=== PATIENT | female | born 1980 ===

== ENCOUNTER 2017-03-20 20:03 | Inpatient (IN) | payer SELFPAY ==
[2017-03-20 20:59] LABS: BASO # 0.1 K/uL (0.0-0.2); BASO % 0.9 % (0.0-2.0); EOS # 0.5 K/uL (0.0-0.7); EOS % 4.9 % (0.0-4.0); LYMPH # 3.3 K/uL (1.0-4.3); LYMPH % 34.4 % (20.0-40.0); MEAN CELL VOLUME 63.3 fl (81.0-99.0); MEAN CORPUSCULAR HEMOGLOBIN 18.5 pg (27.0-31.0); MEAN CORPUSCULAR HGB CONC 29.2 g/dL (33.0-37.0); MEAN PLATELET VOLUME 9.3 fl (7.2-11.7); MONO # 0.7 K/uL (0.0-0.8); MONO % 7.1 % (0.0-10.0); NEUT # 5.1 K/uL (1.8-7.0); NEUT % 52.7 % (50.0-75.0); WHITE BLOOD COUNT 9.7 K/uL (4.8-10.8)
[2017-03-20 21:15] LABS: BLOOD UREA NITROGEN 13 mg/dl (7-17); CALCIUM 8.7 mg/dL (8.4-10.2); CARBON DIOXIDE 23 mmol/L (22-30); CHLORIDE 103 mmol/L (98-107); GFR AFRICAN-AMERICAN > 60; GLUCOSE,RANDOM 92 mg/dL (65-105); SODIUM 139 mmol/l (132-148)
[2017-03-20 21:21] LABS: PARTIAL THROMBOPLASTIN TIME 29.3 Seconds (25.6-37.1)
[2017-03-20] MEDS ORDERED: Potassium CL 10 MEQ/50 ML 50 ML IVPB STA (21:22)
[2017-03-20] MEDS ORDERED: Potassium Chloride 20 mEq ER Tab PO ONE ×2 (21:23→21:47)
--- NOTE | 2017-03-20 21:23 | ED PDOC ---
Syncope/Near Syncope/Dizziness Time Seen by Provider: 03/20/17 20:19 Chief Complaint (Nursing): Dizziness/Lightheaded Chief Complaint (Provider): Dizziness/Lightheaded History Per: Patient History/Exam Limitations: no limitations Onset/Duration Of Symptoms: Days (x1) Current Symptoms Are (Timing): Still Present Additional Complaint(s): Dana Em is a 36 year old female with previous medical history of anemia and fibroids, who presents to the emergency department with a complaint of dizziness associated with occasional shortness of breath, heavy menstrual periods since June and general weakness described as "body heaviness". Denied chest pain, hematuria or bruising easily. Patient stated she had recent bloodwork done with hemoglobin less than 8 and symptoms are consistent with anemia. PMD: Hank Miller MD Past Medical History Reviewed: Historical Data, Nursing Documentation, Vital Signs Vital Signs: Last Vital Signs Temp 98.0 F 03/20/17 20:13 Pulse 106 H 03/20/17 20:13 Resp 16 03/20/17 20:13 BP 180/110 H 03/20/17 20:13 Pulse Ox 99 03/20/17 20:13 - Medical History PMH: Anxiety, Depression, HTN, Migraine Denies: Chronic Kidney Disease - Surgical History Surgical History: (x2) - Family History Family History: States: Unknown Family Hx - Social History Current smoker - smoking cessation education provided: No Ex-Smoker (has not smoked in the last 12 months): No Alcohol: None Drugs: Denies - Home Medications Home Medications: Ambulatory Orders Medication Instructions Recorded Lisinopril [Zestril] 10 mg PO DAILY 03/20/17 Sertraline [Zoloft] 12.5 mg PO DAILY 03/20/17 - Allergies Allergies/Adverse Reactions: Allergies Allergy/AdvReac Type Severity Reaction Status Date / Time No Known Allergies Allergy Verified 03/20/17 20:13 Review of Systems ROS Statement: Except As Marked, All Systems Reviewed And Found Negative Cardiovascular: Negative for: Chest Pain Respiratory: Positive for: Shortness of Breath Genitourinary Female: Positive for: Vaginal Bleeding (heavy). Negative for: Hematuria Skin: Negative for: Bruising (easily) Neurological: Positive for: Weakness, Dizziness Physical Exam - Reviewed Nursing Documentation Reviewed: Yes Vital Signs Reviewed: Yes - Physical Exam Appears: Positive for: Well, Non-toxic, No Acute Distress Head Exam: Positive for: ATRAUMATIC, NORMAL INSPECTION, NORMOCEPHALIC Skin: Positive for: Pallor. Negative for: Normal Color, Rash Eye Exam: Positive for: Normal appearance, EOMI, PERRL. Negative for: Nystagmus ENT: Positive for: Normal ENT Inspection Neck: Positive for: Normal Cardiovascular/Chest: Negative for: Chest Non Tender Respiratory: Positive for: Normal Breath Sounds, Accessory Muscle Use. Negative for: Decreased Breath Sounds, Respiratory Distress Gastrointestinal/Abdominal: Positive for: Normal Exam, Bowel Sounds, Soft. Negative for: Tenderness Extremity: Positive for: Normal ROM. Negative for: Tenderness, Pedal Edema, Deformity Neurologic/Psych: Positive for: Alert, Oriented, Mood/Affect (tired) - Laboratory Results Result Diagrams: 03/20/17 20:45 03/20/17 20:45 - ECG O2 Sat by Pulse Oximetry: 99 (RA) Pulse Ox Interpretation: Normal Medical Decision Making Medical Decision Making: Initial Impression: Anemia Initial Plan: * Type and screen * Packed cells leukoreduced * BMP * Urine * Urine dipstick * CBC * PTT * PT * CXR 21:[address] patient in OBS MS For anemia and hypokalemia. Case discussed with Dr. De La Rosa of Scribe Attestation: Documented by Amy May, acting as a scribe for Eric Marquez MD. Provider Scribe Attestation: All medical record entries made by the Scribe were at my direction and personally dictated by me. I have reviewed the chart and agree that the record accurately reflects my personal performance of the history, physical exam, medical decision making, and the department course for this patient. I have also personally directed, reviewed, and agree with the discharge instructions and disposition. Disposition - Clinical Impression Clinical Impression: Anemia, Hypokalemia - Disposition Disposition Time: 21:25 Condition: STABLE
--- NOTE | 2017-03-20 22:03 | CP.PCM.HP ---
History of Present Illness - History of Present Illness History of Present Illness: CC: Dizziness, SOB on exertion 36F p/w symptoms c/w symptomatic anemia. She was seen and is being worked up by [facility] for menorrhagia and findings of multiple uterine fibroids. She was called and started on Provera today, but ended up coming into the ED because of symptoms. LMP: 03/17/2017 and she has changed pads 6x today. Otherwise, she has URI symptoms for which she is taking NyQuil at night. PMH: HTN, Menorrhagia PSH: C-sxn x2 Denies smoking, drinks socially ADRIAN: Lisinopril/HCTZ, Sertraline, Feosol, ASA Allergies: NKDA Present on Admission - Present on Admission Any Indicators Present on Admission: No Review of Systems - Review of Systems All systems: reviewed and no additional remarkable complaints except - Constitutional Constitutional: Fatigue - Respiratory Respiratory: Dyspnea on Exertion - Reproductive: Female Reproductive:Female: Heavy Menses - Menstruation Menstruation: Currently Menstual, Heavy Menses Past Patient History - Infectious Disease Hx of Infectious Diseases: None - Past Medical History & Family History Past Medical History?: Yes - Past Social History Alcohol: None Drugs: Denies - CARDIAC Hx Hypertension: Yes - PULMONARY Hx Respiratory Disorders: No - NEUROLOGICAL Hx Migraine: Yes - HEENT Hx HEENT Problems: No - RENAL Hx Chronic Kidney Disease: No - ENDOCRINE/METABOLIC Hx Endocrine Disorders: No - HEMATOLOGICAL/ONCOLOGICAL Hx Blood Disorders: No - INTEGUMENTARY Hx Dermatological Problems: No - MUSCULOSKELETAL/RHEUMATOLOGICAL Hx Musculoskeletal Disorders: No Hx Falls: No - GASTROINTESTINAL Hx Gastrointestinal Disorders: No - GENITOURINARY/GYNECOLOGICAL Hx Genitourinary Disorders: No - PSYCHIATRIC Hx Anxiety: Yes Hx Depression: Yes - SURGICAL HISTORY Hx Surgeries: Yes Hx Section: Yes - ANESTHESIA Hx Anesthesia: Yes Hx Anesthesia Reactions: No Meds Allergies/Adverse Reactions: Allergies Allergy/AdvReac Type Severity Reaction Status Date / Time No Known Allergies Allergy Verified 03/20/17 20:13 Physical Exam - Constitutional Appears: Well, Non-toxic, No Acute Distress - Head Exam Head Exam: ATRAUMATIC, NORMAL INSPECTION - Eye Exam Eye Exam: EOMI, Normal appearance, PERRL - ENT Exam ENT Exam: Mucous Membranes Moist, Normal Exam - Respiratory Exam Respiratory Exam: Clear to Auscultation Bilateral, NORMAL BREATHING PATTERN. absent: Rales, Rhonchi, Wheezes - GI/Abdominal Exam GI & Abdominal Exam: Normal Bowel Sounds, Soft. absent: Tenderness - Extremities Exam Extremities exam: Positive for: full ROM, normal capillary refill, normal inspection, pedal pulses present - Neurological Exam Neurological exam: Alert, Oriented x3 - Psychiatric Exam Psychiatric exam: Normal Affect, Normal Mood - Skin Skin Exam: Dry, Intact, Warm Results - Vital Signs Recent Vital Signs: Last Vital Signs Temp 36.7 C 03/20/17 20:13 Pulse 106 H 03/20/17 20:13 Resp 16 03/20/17 20:13 BP 180/110 H 03/20/17 20:13 Pulse Ox 99 03/20/17 21:34 - Labs Result Diagrams: 03/20/17 20:45 03/20/17 20:45 Labs: Laboratory Results - last 24 hr 03/20/17 03/20/17 03/20/17 20:45 20:45 20:45 WBC 9.7 RBC 4.11 Hgb 7.6 L Hct 26.0 L MCV 63.3 L MCH 18.5 L MCHC 29.2 L RDW 22.0 H Plt Count 307 MPV 9.3 Neut % (Auto) 52.7 Lymph % (Auto) 34.4 [place] % (Auto) 7.1 Eos % (Auto) 4.9 H Baso % (Auto) 0.9 Neut # 5.1 Lymph # 3.3 Randall # 0.7 Eos # 0.5 Baso # 0.1 PT 11.5 INR 1.1 APTT 29.3 Sodium 139 Potassium 3.0 L Chloride 103 Carbon Dioxide 23 Anion Gap 16 BUN 13 Creatinine 0.7 Est GFR ( Amer) > 60 Est GFR (Non-Af Amer) > 60 Random Glucose 92 Calcium 8.7 Crossmatch BBK History Checked 03/20/17 21:00 WBC RBC Hgb Hct MCV MCH MCHC RDW Plt Count MPV Neut % (Auto) Lymph % (Auto) [place] % (Auto) Eos % (Auto) Baso % (Auto) Neut # Lymph # Randall # Eos # Baso # PT INR APTT Sodium Potassium Chloride Carbon Dioxide Anion Gap BUN Creatinine Est GFR ( Amer) Est GFR (Non-Af Amer) Random Glucose Calcium Crossmatch See Detail BBK History Checked No verified bt Assessment & Plan (1) Menorrhagia Assessment and Plan: Symptomatic but young, will fluid resuscitate, start Provera, c/w Feosol. - Rpt labs in AM - Start Provera - c/w Feosol - 2L NS bolus - T&S complete - Blood Consent complete Status: Acute (2) DVT prophylaxis Assessment and Plan: Menorrhagia and young, will place SCDs Status: Acute (3) Hypertension Assessment and Plan: Controlled, c/w medication Status: Chronic
[2017-03-20] MEDS: Sodium Chloride 0.9% 1,000 ML IV SCH (22:39)
[2017-03-20] MEDS ORDERED: Pneumococcal 23-Valent Vaccine IM ONE (23:41)
[2017-03-21] MEDS: Sodium Chloride 0.9% 1,000 ML IV SCH (00:20)
[2017-03-21 06:29] LABS: BASO # 0.1 K/uL (0.0-0.2); BASO % 0.9 % (0.0-2.0); EOS # 0.5 K/uL (0.0-0.7); EOS % 5.7 % (0.0-4.0); HEMATOCRIT 24.7 % (34.0-47.0); LYMPH # 2.5 K/uL (1.0-4.3); LYMPH % 30.2 % (20.0-40.0); MEAN CELL VOLUME 63.8 fl (81.0-99.0); MEAN CORPUSCULAR HGB CONC 29.7 g/dL (33.0-37.0); MEAN PLATELET VOLUME 9.3 fl (7.2-11.7); MONO # 0.6 K/uL (0.0-0.8); MONO % 7.2 % (0.0-10.0); NEUT # 4.6 K/uL (1.8-7.0); NRBC % 0.1 % (0.0-0.0); RED CELL DISTRIBUTION WIDTH 21.9 % (11.5-14.5); WHITE BLOOD COUNT 8.3 K/uL (4.8-10.8)
[2017-03-21 06:39] LABS: ALB/GLOB RATIO 1.1 (1.0-2.1); ALKALINE PHOSPHATASE 102 U/L (38-126); ALT/SGPT 51 U/L (9-52); AST/SGOT 35 U/L (14-36); BILIRUBIN,TOTAL 0.4 mg/dl (0.2-1.3); BLOOD UREA NITROGEN 5 mg/dl (7-17); CARBON DIOXIDE 27 mmol/L (22-30); CHLORIDE 105 mmol/L (98-107); GFR AFRICAN-AMERICAN > 60; GLUCOSE,RANDOM 97 mg/dL (65-105); POTASSIUM 3.5 MMOL/L (3.6-5.0); SODIUM 139 mmol/l (132-148); TOTAL PROTEIN 6.4 G/DL (6.3-8.2)
[2017-03-21] MEDS ORDERED: Influenza Vaccine 18yr & older 0.5 ML/45 MCG SYR IM ONE (09:00)
--- NOTE | 2017-03-21 10:02 | RAD ---
HISTORY: weakness COMPARISON: No prior. FINDINGS: LUNGS: No active pulmonary disease. PLEURA: No significant pleural effusion identified, no pneumothorax apparent. CARDIOVASCULAR: Normal. OSSEOUS STRUCTURES: No significant abnormalities. VISUALIZED UPPER ABDOMEN: Normal. OTHER FINDINGS: None. IMPRESSION: No active disease.
--- NOTE | 2017-03-21 16:23 | CP.PCM.PN ---
Subjective - Date & Time of Evaluation Date of Evaluation: 03/21/17 Time of Evaluation: 10:00 - Subjective Subjective: Pt seen and examined at bedside, seen resting. She shared of slight vaginal bleed like menses, headaches, dizziness upon ambulation. She has been able to drink fluids. Objective - Vital Signs/Intake and Output Vital Signs (last 24 hours): Temp Pulse Resp BP Pulse Ox 98.3 F 93 H 20 147/79 97 03/21/17 08:39 03/21/17 09:08 03/21/17 08:39 03/21/17 09:08 03/21/17 08:39 - Medications Medications: Current Medications Aspirin (Aspirin Chewable) 81 mg PO DAILY [facility] Last Admin: 03/21/17 09:07 Dose: 81 mg Ferrous Sulfate (Feosol) 325 mg PO TID [facility] Last Admin: 03/21/17 12:59 Dose: 325 mg Hydrochlorothiazide (Microzide) 12.5 mg PO DAILY [facility] Last Admin: 03/21/17 09:08 Dose: 12.5 mg Lisinopril (Zestril) 20 mg PO DAILY [facility] Last Admin: 03/21/17 09:08 Dose: 20 mg Medroxyprogesterone Acetate (Provera) 10 mg PO TIDAC [facility] Last Admin: 03/21/17 13:00 Dose: 10 mg Sertraline HCl (Zoloft) 100 mg PO HS [facility] Last Admin: 03/20/17 23:55 Dose: 100 mg - Labs Labs: 03/21/17 05:30 03/21/17 05:30 PT 11.5 Seconds (9.8-13.1) 03/20/17 20:45 INR 1.1 (0.9-1.2) 03/20/17 20:45 APTT 29.3 Seconds (25.6-37.1) 03/20/17 20:45 - Constitutional Appears: No Acute Distress - Head Exam Head Exam: NORMAL INSPECTION - Eye Exam Eye Exam: EOMI, Normal appearance - Respiratory Exam Respiratory Exam: Clear to Ausculation Bilateral, NORMAL BREATHING PATTERN - Cardiovascular Exam Cardiovascular Exam: REGULAR RHYTHM, +S1, +S2 - GI/Abdominal Exam GI & Abdominal Exam: Soft, Normal Bowel Sounds - Neurological Exam Neurological Exam: Alert, Awake, Oriented x3 - Psychiatric Exam Psychiatric exam: Normal Affect, Normal Mood Assessment and Plan - Assessment and Plan (Free Text) Assessment: Anemia secondary to menorrhagia. Plan: 36 yo F presented with menorrhagia 1) Anemia secondary to menorrhagia - symptomatic - transfuse 1 unit of RBC - f/u cbc after - Provera, Venofer - ordered von willebrand factor - Bx sched 04/03/2017 2) HTN - continue with meds 3) DVT prophylaxis -scd Harman Barajas, PGY1
[2017-03-21 17:16] VITALS: RESP 18
--- NOTE | 2017-03-21 21:35 | CARD ---
APPROVED REPORT EKG Measurement Heart [id number] <Conclusion> Sinus tachycardia Nonspecific ST abnormality Abnormal ECG
[2017-03-22 06:29] LABS: HEMATOCRIT 32.4 % (34.0-47.0); MEAN CELL VOLUME 69.5 fl (81.0-99.0); MEAN CORPUSCULAR HEMOGLOBIN 21.7 pg (27.0-31.0); MEAN CORPUSCULAR HGB CONC 31.3 g/dL (33.0-37.0); RED CELL DISTRIBUTION WIDTH 27.4 % (11.5-14.5); WHITE BLOOD COUNT 10.6 K/uL (4.8-10.8)
[2017-03-22 06:34] LABS: BLOOD UREA NITROGEN 8 mg/dl (7-17); CALCIUM 8.6 mg/dL (8.4-10.2); CARBON DIOXIDE 23 mmol/L (22-30); CHLORIDE 104 mmol/L (98-107); GFR AFRICAN-AMERICAN > 60; GLUCOSE,RANDOM 87 mg/dL (65-105); POTASSIUM 3.5 MMOL/L (3.6-5.0); SODIUM 142 mmol/l (132-148)
[2017-03-22 07:56] VITALS: BP 115/75; PULSE 71; TEMP 98.3; O2SAT 98
--- NOTE | 2017-03-22 08:34 | CP.PCM.DIS ---
Provider - Provider Date of Admission: 03/21/17 13:05 Attending physician: Tamia Ch MD Time Spent in preparation of Discharge (in minutes): 20 Hospital Course - Lab Results Lab Results: Most Recent Lab Values WBC 10.6 K/uL (4.8-10.8) 03/22/17 05:15 RBC 4.67 Mil/uL (3.80-5.20) 03/22/17 05:15 Hgb 10.1 g/dL (12.0-16.0) L D 03/22/17 05:15 Hct 32.4 % (34.0-47.0) L 03/22/17 05:15 MCV 69.5 fl (81.0-99.0) L D 03/22/17 05:15 MCH 21.7 pg (27.0-31.0) L 03/22/17 05:15 MCHC 31.3 g/dL (33.0-37.0) L 03/22/17 05:15 RDW 27.4 % (11.5-14.5) H 03/22/17 05:15 Plt Count 308 K/uL (130-400) 03/22/17 05:15 MPV 9.3 fl (7.2-11.7) 03/21/17 05:30 Neut % (Auto) 56.0 % (50.0-75.0) 03/21/17 05:30 Lymph % (Auto) 30.2 % (20.0-40.0) 03/21/17 05:30 [place] % (Auto) 7.2 % (0.0-10.0) 03/21/17 05:30 Eos % (Auto) 5.7 % (0.0-4.0) H 03/21/17 05:30 Baso % (Auto) 0.9 % (0.0-2.0) 03/21/17 05:30 Neut # 4.6 K/uL (1.8-7.0) 03/21/17 05:30 Lymph # 2.5 K/uL (1.0-4.3) 03/21/17 05:30 [place] # 0.6 K/uL (0.0-0.8) 03/21/17 05:30 Eos # 0.5 K/uL (0.0-0.7) 03/21/17 05:30 Baso # 0.1 K/uL (0.0-0.2) 03/21/17 05:30 PT 11.5 Seconds (9.8-13.1) 03/20/17 20:45 INR 1.1 (0.9-1.2) 03/20/17 20:45 APTT 29.3 Seconds (25.6-37.1) 03/20/17 20:45 Sodium 142 mmol/l (132-148) 03/22/17 05:15 Potassium 3.5 MMOL/L (3.6-5.0) L 03/22/17 05:15 Chloride 104 mmol/L (98-107) 03/22/17 05:15 Carbon Dioxide 23 mmol/L (22-30) 03/22/17 05:15 Anion Gap 19 (10-20) 03/22/17 05:15 BUN 8 mg/dl (7-17) 03/22/17 05:15 Creatinine 0.7 mg/dL (0.7-1.2) 03/22/17 05:15 Est GFR ( Amer) > 60 03/22/17 05:15 Est GFR (Non-Af Amer) > 60 03/22/17 05:15 Random Glucose 87 mg/dL (65-105) 03/22/17 05:15 Calcium 8.6 mg/dL (8.4-10.2) 03/22/17 05:15 Total Bilirubin 0.4 mg/dl (0.2-1.3) 03/21/17 05:30 AST 35 U/L (14-36) 03/21/17 05:30 ALT 51 U/L (9-52) 03/21/17 05:30 Alkaline Phosphatase 102 U/L (38-126) 03/21/17 05:30 Total Protein 6.4 G/DL (6.3-8.2) 03/21/17 05:30 Albumin 3.4 g/dL (3.5-5.0) L D 03/21/17 05:30 Globulin 3.0 gm/dL (2.2-3.9) 03/21/17 05:30 Albumin/Globulin Ratio 1.1 (1.0-2.1) 03/21/17 05:30 Blood Type A POSITIVE 03/20/17 21:00 Blood Type Confirm A POSITIVE 03/20/17 21:35 Antibody Screen Negative 03/20/17 21:00 Crossmatch See Detail 03/20/17 21:00 BBK History Checked No verified bt 03/20/17 21:00 - Hospital Course Hospital Course: 36 yo F presented with anemia secondary to menorrhagia Administered LR, 2 units of blood, venofer, and provera. HH: 10.1/32.4 Discharge home to follow up in OP in [address] Miller; Bx 04/03/2017 Discharge Exam - Head Exam Head Exam: NORMAL INSPECTION Discharge Plan - Discharge Medications Prescriptions: Ferrous Sulfate [Feosol] 325 mg PO TID #90 tab MedroxyPROGESTERone [Provera] 10 mg PO TIDAC #16 tab - Follow Up Plan Condition: STABLE Disposition: HOME/ ROUTINE Patient education suggested?: Yes Instructions: Medroxyprogesterone (By mouth), Dysfunctional Uterine Bleeding ( DC) Additional Instructions: take meds as directed appt scheduled for endometrial Bx with Dr. Frederick 04/03/17 Patient to follow up with PMD in 1-2 days ER precautions given Referrals: Rosalba Monreal MD [Staff Provider] -
[2017-03-26 15:38] LABS: VON WILLERBRAND FACTOR AG 96 % (50-217)
== END 2017-03-22 11:20 | disposition home or self-care (01) | DRG 395 ==
LOC: H.ER 20:03 → H.ERHOLD 21:24 → H.MEDSURG1 22:57 → OBSVTOIN 03-21 13:05
PROVIDERS: ADMIT Family Medicine Geriatric Medicine; ATTEND Family Medicine Geriatric Medicine
PROC: 30233N1 Transfusion of Nonautologous Red Blood Cells into Peripheral Vein, Percutaneous Approach (ICD-10-PCS; principal; 2017-03-21)
PROC: 3E0234Z Introduction of Serum, Toxoid and Vaccine into Muscle, Percutaneous Approach (ICD-10-PCS; 2017-03-21)
PROC: 3E0234Z Introduction of Serum, Toxoid and Vaccine into Muscle, Percutaneous Approach (ICD-10-PCS; 2017-03-22)
DX: D50.0 Iron deficiency anemia secondary to blood loss (chronic) (principal); E87.6 Hypokalemia; D25.9 Leiomyoma of uterus, unspecified; I10 Essential (primary) hypertension; N92.0 Excessive and frequent menstruation with regular cycle; G43.909 Migraine, unspecified, not intractable, without status migrainosus; F32.9 Major depressive disorder, single episode, unspecified; F41.9 Anxiety disorder, unspecified; Z23 Encounter for immunization

== ENCOUNTER 2017-04-05 23:38 | Emergency (ER) | payer SELFPAY ==
[2017-04-05 23:54] VITALS: O2SAT 99
[2017-04-06] MEDS ORDERED: HYDROmorphone 0.5 mg/0.5 ml ISec IVP STA ×2 (00:05→01:08)
[2017-04-06] MEDS ORDERED: Sodium Chloride 0.9% 1,000 ML IV STA (00:05)
[2017-04-06] MEDS ORDERED: HYDROmorphone 0.5 mg/0.5 ml ISec ONE (00:13)
--- NOTE | 2017-04-06 00:20 | ED PDOC ---
HPI: Abdomen Time Seen by Provider: 04/05/17 23:49 Chief Complaint (Nursing): Abdominal Pain Chief Complaint (Provider): Abdominal Pain History Per: Patient History/Exam Limitations: no limitations Onset/Duration Of Symptoms: Days (2 days) Current Symptoms Are (Timing): Still Present Severity: Severe Associated Symptoms: Urinary Symptoms (bleeding) Additional Complaint(s): Patient is a 36 y/o female with a past medical history of anemia and fibroids, who presents to the ED complaining of severe lower abdominal pain and bleeding since having an endometrial biopsy 2 days ago. Patient reports that she sees blood when urinating and otherwise only feels pain. She claims that she was told the pain would stop by now though it hasn't, and she reports taking Tylenol for the pain with no relief. Patient also notes feeling dizzy and lightheaded, but denies any further complaints. PCP: Provider [facility] Past Medical History Reviewed: Historical Data, Nursing Documentation, Vital Signs Vital Signs: Last Vital Signs Temp 98.4 F 04/05/17 23:47 Pulse 80 04/06/17 00:21 Resp 17 04/06/17 00:21 BP 149/100 H 04/06/17 00:21 Pulse Ox 99 04/06/17 03:30 - Medical History PMH: Anemia, Anxiety, Depression, HTN, Migraine Denies: Chronic Kidney Disease Other PMH: Fibroids - Surgical History Surgical History: (x2) - Family History Family History: States: No Known Family Hx, Unknown Family Hx - Social History Current smoker - smoking cessation education provided: No Ex-Smoker (has not smoked in the last 12 months): No Alcohol: None Drugs: Denies - Home Medications Home Medications: Ambulatory Orders Medication Instructions Recorded Lisinopril [Zestril] 10 mg PO DAILY 03/20/17 Sertraline [Zoloft] 12.5 mg PO DAILY 03/20/17 Ferrous Sulfate [Feosol] 325 mg PO TID #90 tab 03/22/17 MedroxyPROGESTERone [Provera] 10 mg PO TIDAC #16 tab 03/22/17 traMADol [Ultram] 50 mg PO BID #10 tab 04/06/17 - Allergies Allergies/Adverse Reactions: Allergies Allergy/AdvReac Type Severity Reaction Status Date / Time No Known Allergies Allergy Verified 03/20/17 20:13 Review of Systems ROS Statement: Except As Marked, All Systems Reviewed And Found Negative Gastrointestinal: Positive for: Abdominal Pain (lower abdomen) Genitourinary Female: Positive for: Hematuria Neurological: Positive for: Dizziness, Other (Lightheaded) Physical Exam - Reviewed Nursing Documentation Reviewed: Yes Vital Signs Reviewed: Yes - Physical Exam Appears: Positive for: Non-toxic, Uncomfortable Head Exam: Positive for: ATRAUMATIC, NORMOCEPHALIC Skin: Positive for: Normal Color, Warm, Dry Eye Exam: Positive for: Normal appearance, EOMI, PERRL Neck: Positive for: Normal, Painless ROM, Supple Cardiovascular/Chest: Positive for: Regular Rate, Rhythm. Negative for: Murmur Respiratory: Positive for: Normal Breath Sounds. Negative for: Respiratory Distress Gastrointestinal/Abdominal: Positive for: Tenderness (LLQ tenderness) Pelvic Exam: Positive for: External Exam Normal, Blood, Tender Adnexa (left adnexal tenderness) Back: Positive for: Normal Inspection. Negative for: L CVA Tenderness, R CVA Tenderness, Vertebral Tenderness Extremity: Positive for: Normal ROM. Negative for: Pedal Edema, Deformity Neurologic/Psych: Positive for: Alert, Oriented (x3). Negative for: Motor/ Sensory Deficits Comments: Strategic Account Executive: Marylu Mccarthy RN - Laboratory Results Result Diagrams: 04/06/17 00:34 04/06/17 00:34 - ECG O2 Sat by Pulse Oximetry: 99 (RA) Pulse Ox Interpretation: Normal Medical Decision Making Medical Decision Making: Time: 00:04 Initial Impression: post biopsy pain Initial Plan: --Transvaginal US --Type and screen --Labs --Urine --Urine Dipstick --HYDROmorphone 0.5mg IVP --Sodium chloride 0.9%, IV 500 mls/hr --Reevaluation Time: 02:58 Transvaginal US Results FINDINGS: Uterus/cervix: The uterus is enlarged and lobulated in contour secondary to multiple uterine fibroids. There is a 1.7 x 1.6 cm fibroid in the anterior body. There is a 2 x 1.7 cm fibroid in the posterior body. There is a 3.7 x 3.6 cm fibroid in the posterior fundus. There is a 3.7 x 2.8 cm fibroid in the anterior fundus. There is a 2.3 x 2.1 x 3.1 cm fibroid in the mid submucosal uterus. The endometrium is thickened and heterogeneous measuring 1.6 cm. Right ovary: The RIGHT ovary measures 5.2 x 3.2 x 2.1 cm. There is a 3.8 x 4.7 x 2.6 cm cyst in the RIGHT ovary. Normal blood flow. Left ovary: The LEFT ovary measures 3.4 x 1.7 x 1.8 cm and is unremarkable. Normal blood flow. Free fluid: No free fluid. Bladder: Empty bladder which cannot be evaluated with this probe. IMPRESSION: Multiple uterine fibroids. Heterogeneous and thickened endometrial cavity. Findings could be related to recent biopsy. Clinical correlation recommended. Large RIGHT ovarian cyst. No ovarian torsion. 330: Pt. is feeling much better, no longer having pain or dizziness. States she will call clinic tomorrow for expedited appointment. Will prescribe tramadol- discussed risks of narcotic pain management, patient understands addictive potential, states she will only use it if severe pain, opioid alternatives discussed. REturn precautions given. Will d/c home. LEAD APPLIER searched- no recent narcotic prescriptions (tramadol in 07/03) Scribe Attestation: Documented by Val Figueroa, acting as a scribe for Eric Marquez MD Provider Scribe Attestation: All medical record entries made by the Scribe were at my direction and personally dictated by me. I have reviewed the chart and agree that the record accurately reflects my personal performance of the history, physical exam, medical decision making, and the department course for this patient. I have also personally directed, reviewed, and agree with the discharge instructions and disposition. Disposition - Clinical Impression Clinical Impression: Abdominal pain, Vaginal bleeding - Patient ED Disposition Is Patient to be Admitted: No - Disposition Disposition: Routine/Home Disposition Time: 03:34 Condition: STABLE Prescriptions: traMADol [Ultram] 50 mg PO BID #10 tab Instructions: Abdominal Pain (ED), Dysfunctional Uterine Bleeding (ED) Forms: [facility] (Norwegian) Print Language: THAI
[2017-04-06 00:37] LABS: BASO # 0.1 K/uL (0.0-0.2); BASO % 0.6 % (0.0-2.0); EOS # 0.4 K/uL (0.0-0.7); EOS % 4.6 % (0.0-4.0); HEMATOCRIT 35.3 % (34.0-47.0); LYMPH # 3.2 K/uL (1.0-4.3); LYMPH % 33.6 % (20.0-40.0); MEAN CELL VOLUME 74.3 fl (81.0-99.0); MEAN CORPUSCULAR HEMOGLOBIN 23.1 pg (27.0-31.0); MEAN CORPUSCULAR HGB CONC 31.1 g/dL (33.0-37.0); MEAN PLATELET VOLUME 9.3 fl (7.2-11.7); MONO # 0.8 K/uL (0.0-0.8); MONO % 7.8 % (0.0-10.0); NEUT # 5.1 K/uL (1.8-7.0); NEUT % 53.4 % (50.0-75.0); RED CELL DISTRIBUTION WIDTH 31.1 % (11.5-14.5); WHITE BLOOD COUNT 9.6 K/uL (4.8-10.8)
[2017-04-06 01:24] LABS: BLOOD UREA NITROGEN 12 mg/dl (7-17); CALCIUM 9.4 mg/dL (8.4-10.2); CARBON DIOXIDE 24 mmol/L (22-30); CHLORIDE 106 mmol/L (98-107); GFR AFRICAN-AMERICAN > 60; GLUCOSE,RANDOM 96 mg/dL (65-105); POTASSIUM 3.4 MMOL/L (3.6-5.0); SODIUM 144 mmol/l (132-148)
--- NOTE | 2017-04-06 02:58 | US ---
EXAM: US Pelvis, Transvaginal CLINICAL HISTORY: 36 years old, female; Pain; Pelvic pain; Prior surgery; Surgery date: 3-7 days post-operative; Surgery type: Endometrial biopsy 3 days ago; Additional info: Llq pain, adnexal tenderness, recent endom biopsy TECHNIQUE: Real-time transvaginal pelvic ultrasound (complete) with image documentation. Transvaginal imaging was used for better evaluation of the endometrium and adnexa. COMPARISON: No relevant prior studies available. FINDINGS: Uterus/cervix: The uterus is enlarged and lobulated in contour secondary to multiple uterine fibroids. There is a 1.7 x 1.6 cm fibroid in the anterior body. There is a 2 x 1.7 cm fibroid in the posterior body. There is a 3.7 x 3.6 cm fibroid in the posterior fundus. There is a 3.7 x 2.8 cm fibroid in the anterior fundus. There is a 2.3 x 2.1 x 3.1 cm fibroid in the mid submucosal uterus. The endometrium is thickened and heterogeneous measuring 1.6 cm. Right ovary: The RIGHT ovary measures 5.2 x 3.2 x 2.1 cm. There is a 3.8 x 4.7 x 2.6 cm cyst in the RIGHT ovary. Normal blood flow. Left ovary: The LEFT ovary measures 3.4 x 1.7 x 1.8 cm and is unremarkable. Normal blood flow. Free fluid: No free fluid. Bladder: Empty bladder which cannot be evaluated with this probe. IMPRESSION: Multiple uterine fibroids. Heterogeneous and thickened endometrial cavity. Findings could be related to recent biopsy. Clinical correlation recommended. Large RIGHT ovarian cyst. No ovarian torsion.
[2017-04-06 03:44] VITALS: BP 142/95; PULSE 78; RESP 16; TEMP 98.2
== END 2017-04-06 03:50 | disposition home or self-care (01) ==
LOC: H.ER 23:38
DX: D25.9 Leiomyoma of uterus, unspecified (principal); N83.201 Unspecified ovarian cyst, right side; F32.9 Major depressive disorder, single episode, unspecified; F41.9 Anxiety disorder, unspecified; I10 Essential (primary) hypertension
CPT/HCPCS: 76830; 80048; 81025; 85025; 86850; 86900; 96361; 96374; 96376; 99283; J1170; J7040

== ENCOUNTER 2017-07-08 20:06 | Emergency (ER) | payer SELFPAY ==
[2017-07-08 20:15] VITALS: RESP 16; TEMP 98.9; O2SAT 100
[2017-07-08] MEDS ORDERED: Sodium Chloride 0.9% 1,000 ML IV STA (21:28)
--- NOTE | 2017-07-08 21:31 | ED PDOC ---
HPI: Female Pain Time Seen by Provider: 07/08/17 21:16 Chief Complaint (Nursing): Female Genitourinary Chief Complaint (Provider): Vaginal spotting History Per: Patient History/Exam Limitations: no limitations Onset/Duration Of Symptoms: Days (3) Current Symptoms Are (Timing): Still Present Additional Complaint(s): Vaginal spotting and cramping across lower. No vaginal dc. Occasional dysuria. No back pain. No chest pain, dyspnea, weakness. No headaches. Has known fibroids. Getting surgery for them in 4 weeks. Past Medical History Reviewed: Nursing Documentation, Vital Signs Vital Signs: Last Vital Signs Temp 98.9 F 07/08/17 20:11 Pulse 94 H 07/08/17 20:11 Resp 16 07/08/17 20:11 BP 166/103 H 07/08/17 20:11 Pulse Ox 100 07/08/17 20:11 - Medical History PMH: Anemia, Anxiety, Depression, HTN, Migraine Denies: Chronic Kidney Disease Other PMH: fibromyalgia - Surgical History Surgical History: (x2) - Family History Family History: States: Unknown Family Hx - Social History Current smoker - smoking cessation education provided: No Alcohol: None Drugs: Denies - Home Medications Home Medications: Ambulatory Orders Medication Instructions Recorded Lisinopril [Zestril] 10 mg PO DAILY 03/20/17 Sertraline [Zoloft] 12.5 mg PO DAILY 03/20/17 Ferrous Sulfate [Feosol] 325 mg PO TID #90 tab 03/22/17 MedroxyPROGESTERone [Provera] 10 mg PO TIDAC #16 tab 03/22/17 traMADol [Ultram] 50 mg PO BID #10 tab 04/06/17 - Allergies Allergies/Adverse Reactions: Allergies Allergy/AdvReac Type Severity Reaction Status Date / Time No Known Allergies Allergy Verified 03/20/17 20:13 Review of Systems ROS Statement: Except As Marked, All Systems Reviewed And Found Negative Genitourinary Female: Positive for: Vaginal Bleeding, Pelvic Pain Physical Exam - Reviewed Nursing Documentation Reviewed: Yes Vital Signs Reviewed: Yes - Physical Exam Appears: Positive for: Non-toxic, No Acute Distress Head Exam: Positive for: ATRAUMATIC, NORMAL INSPECTION, NORMOCEPHALIC Skin: Positive for: Normal Color, Warm, DRY Eye Exam: Positive for: EOMI, Normal appearance, PERRL ENT: Positive for: Normal ENT Inspection Neck: Positive for: Normal, Painless ROM Cardiovascular/Chest: Positive for: Regular Rate, Rhythm Respiratory: Positive for: CNT, Normal Breath Sounds Gastrointestinal/Abdominal: Positive for: Bowel Sounds, Soft, Tenderness ( tender mild across lower) Back: Positive for: Normal Inspection. Negative for: L CVA Tenderness, R CVA Tenderness Extremity: Positive for: Normal ROM. Negative for: Tenderness, Pedal Edema Neurologic/Psych: Positive for: Alert, Oriented - Laboratory Results Result Diagrams: 07/08/17 22:53 07/08/17 22:53 Interpretation Of Abn Labs: no acute - ECG O2 Sat by Pulse Oximetry: 100 Pulse Ox Interpretation: Normal - CT Scan/US US Other Rad Studies (CT/US): Radiology Report Reviewed Other Rad Interpretation: fibroids - Progress ED Course And Treament: 2316: Stable. Alert. AAOx3. Fu with pcp. Chronic findings. Disposition - Clinical Impression Clinical Impression: Fibroids - Patient ED Disposition Is Patient to be Admitted: No Counseled Patient/Family Regarding: Studies Performed, Diagnosis, Need For Followup - Disposition [facility] - [facility]17 Disposition: Routine/Home Disposition Time: 23:18 Condition: STABLE Additional Instructions: Return if not better in 3 days. Instructions: Uterine Fibroids (ED) Print Language: GAMBIAN
[2017-07-08 22:53] VITALS: BP 148/87; PULSE 80
[2017-07-08 22:56] LABS: BASO # 0.1 K/uL (0.0-0.2); BASO % 1.1 % (0.0-2.0); EOS # 0.3 K/uL (0.0-0.7); EOS % 2.9 % (0.0-4.0); HEMOGLOBIN 10.5 g/dL (12.0-16.0); LYMPH # 3.4 K/uL (1.0-4.3); LYMPH % 34.6 % (20.0-40.0); MEAN CELL VOLUME 69.5 fl (81.0-99.0); MEAN CORPUSCULAR HEMOGLOBIN 21.5 pg (27.0-31.0); MEAN CORPUSCULAR HGB CONC 30.9 g/dL (33.0-37.0); MONO # 0.5 K/uL (0.0-0.8); MONO % 5.6 % (0.0-10.0); NEUT # 5.4 K/uL (1.8-7.0); NEUT % 55.8 % (50.0-75.0); NRBC % 0.1 % (0.0-0.0); RBC 4.91 Mil/uL (3.80-5.20); RED CELL DISTRIBUTION WIDTH 20.9 % (11.5-14.5); WHITE BLOOD COUNT 9.7 K/uL (4.8-10.8)
[2017-07-08 23:05] LABS: BLOOD UREA NITROGEN 10 mg/dl (7-17); CALCIUM 9.3 mg/dL (8.4-10.2); GFR AFRICAN-AMERICAN > 60; GFR NON-AFRICAN AMERICAN > 60
--- NOTE | 2017-07-09 11:12 | US ---
HISTORY: vaginal bleeding. Menstrual status: LMP March 2017. Cycles are irregular. Currently on Depo-Provera. Relevant surgical history: March 2017 endometrial biopsy. COMPARISON: 04/06/2017 TECHNIQUE: Transvaginal only. Real -time technique with 2D, duplex and color Doppler FINDINGS: UTERUS: Measures 3.4 x 5.5 x 8.0 cm. Normal in size and appearance. Scratch stent 1. Posterior slightly exophytic fundal fibroid 2.9 x 3 cm. 2. Anterior exophytic fibroid 2.2 x 3.2 cm. 3. Posterior fibroid lower uterine segment to the left of the midline 3.9 x 4 cm. 4. Posterior isoechoic fibroid to the right of the midline 1.8 x 2.2 cm. 5. Anterior to the left of the midline fibroid 2.1 x 3 cm. ENDOMETRIUM: Measures 6.8 mm in diameter. Unremarkable. CERVIX: No cervical abnormality identified. RIGHT OVARY: Measures 2 x 2.7 x 3.8 cm. No solid mass. Normal flow. Dominant cysts 1.3 x 1.5 x 2.5 cm. Multiple subcentimeter follicles. LEFT OVARY: Measures 1.7 x 1.3 x 2.4 cm. No solid mass. Normal flow. Multiple subcentimeter follicles. FREE FLUID: No significant free fluid noted. OTHER FINDINGS: None. IMPRESSION: Unremarkable endometrium. Stable appearing uterus and multiple (5) fibroids. Bilateral follicles and a dominant cyst right adnexa.
== END 2017-07-09 00:15 | disposition home or self-care (01) ==
LOC: H.ER 20:06
DX: D25.9 Leiomyoma of uterus, unspecified (principal); F32.9 Major depressive disorder, single episode, unspecified; F41.9 Anxiety disorder, unspecified; I10 Essential (primary) hypertension; M79.7 Fibromyalgia
CPT/HCPCS: 76830; 80048; 81025; 85025; 96374; 99282; J1885; J7040

== ENCOUNTER 2017-08-06 06:01 | Inpatient (IN) | payer SELFPAY ==
[2017-07-29 09:12] VITALS: BMI 32.4
[2017-08-06] MEDS ORDERED: Propofol 10 mg/ml Inj (20 ML) ONE (07:44)
[2017-08-06] MEDS ORDERED: Midazolam 2 MG/2 ML VIAL ONE (07:44)
[2017-08-06] MEDS ORDERED: Rocuronium 10 mg/ml (5 ml) ONE ×2 (07:45→10:50)
[2017-08-06] MEDS ORDERED: Succinylcholine 200 mg/10 ml Inj IV ONE (07:45)
[2017-08-06] MEDS ORDERED: Neostigmine Methylsulfate 3mg/3ml Syringe IV ONE (07:45)
[2017-08-06] MEDS ORDERED: Lidocaine 4% (Laryng-O-Jet) Kit MM ONE (07:47)
[2017-08-06] MEDS ORDERED: Lactated Ringer's 1,000 ML IV ONE ×4 (08:32→10:45)
[2017-08-06] MEDS ORDERED: Esmolol 100 mg/10ml Inj IV ONE (09:38)
--- NOTE | 2017-08-06 11:40 | CP.PCM.HP ---
History of Present Illness - History of Present Illness History of Present Illness: 36 year old female with PMH of DM, HTN, Anemia, Menorrhagia, Fibroids presents for total abdominal hysterectomy. She has history of fibroids and menorrhagia, treated with depo provera in 2016. History of anemia requiring blood transfusion as well. No complaints this morning. 12 point review of systems negative PMH: DM, HTN, Anemia, Menorrhagia, Fibroids Medications: Zoloft, HCTZ, Metformin Allergies: NKDA Surgical hx : x 2 PMD: NHC Present on Admission - Present on Admission Any Indicators Present on Admission: No Past Patient History - Infectious Disease Hx of Infectious Diseases: None - Past Medical History & Family History Past Medical History?: Yes - Past Social History Smoking Status: Never Smoked - CARDIAC Hx Cardiac Disorders: Yes Hx Hypertension: Yes - PULMONARY Hx Respiratory Disorders: No - NEUROLOGICAL Hx Neurological Disorder: Yes Hx Migraine: Yes - HEENT Hx HEENT Problems: No - RENAL Hx Chronic Kidney Disease: No - ENDOCRINE/METABOLIC Hx Endocrine Disorders: No - HEMATOLOGICAL/ONCOLOGICAL Hx Blood Disorders: No Hx Anemia: Yes (transfused 2 units) - INTEGUMENTARY Hx Dermatological Problems: No - MUSCULOSKELETAL/RHEUMATOLOGICAL Hx Musculoskeletal Disorders: No Hx Falls: No - GASTROINTESTINAL Hx Gastrointestinal Disorders: No - GENITOURINARY/GYNECOLOGICAL Hx Genitourinary Disorders: Yes Other/Comment: fibroids - PSYCHIATRIC Hx Psychophysiologic Disorder: No Hx Anxiety: Yes Hx Depression: Yes Hx Substance Use: No - SURGICAL HISTORY Hx Surgeries: Yes Hx Section: Yes (x2) - ANESTHESIA Hx Anesthesia: Yes Hx Anesthesia Reactions: No Hx Malignant Hyperthermia: No Has any member of the family had a problem w/ anesthesia?: No Meds Allergies/Adverse Reactions: Allergies Allergy/AdvReac Type Severity Reaction Status Date / Time No Known Allergies Allergy Verified 03/20/17 20:13 Physical Exam - Constitutional Appears: Well, No Acute Distress - Head Exam Head Exam: ATRAUMATIC - ENT Exam ENT Exam: Mucous Membranes Moist - Respiratory Exam Respiratory Exam: Clear to Auscultation Bilateral, NORMAL BREATHING PATTERN - Cardiovascular Exam Cardiovascular Exam: REGULAR RHYTHM, +S1, +S2 - GI/Abdominal Exam GI & Abdominal Exam: Normal Bowel Sounds, Soft. absent: Distended, Guarding, Tenderness - Rectal Exam Rectal Exam: Deferred - Extremities Exam Extremities exam: Positive for: normal inspection. Negative for: calf tenderness, pedal edema - Neurological Exam Neurological exam: Alert, CN II-XII Intact, Normal Gait, Oriented x3, Reflexes Normal - Psychiatric Exam Psychiatric exam: Normal Affect, Normal Mood - Skin Skin Exam: Dry, Intact, Normal Color, Warm Results - Vital Signs Recent Vital Signs: Last Vital Signs Temp 98.8 F 08/06/17 06:33 Pulse 80 08/06/17 06:36 Resp 20 08/06/17 06:33 BP 134/91 H 08/06/17 06:33 Pulse Ox 97 08/06/17 06:33 - Labs Labs: Laboratory Results - last 24 hr 08/06/17 06:20 Blood Type A POSITIVE Antibody Screen Negative BBK History Checked Patient has bt Assessment & Plan - Assessment and Plan (Free Text) Assessment: A/P:36 year old female with DM, HTN, Menorrhagia, Fibroids presents for scheduled total abdominal hysterectomy. -NPO -Ancef preop -IT SOLUTIONS ARCHITECT for pain post op -Home Medications for DM, HTN to be resumed POD#1 Aditya PGY2 case d/w attending
[2017-08-06] MEDS ORDERED: Lactated Ringer's 1,000 ML IV SCH (13:30)
[2017-08-06] MEDS: Lactated Ringer's 1,000 ML IV SCH ×2 (14:46→22:33)
--- NOTE | 2017-08-06 19:42 | CP.PCM.PCO ---
Addendum Addendum: 08/06/17 19:34 Post op evaluation S:Patient seen and examined s/p total abdominal hysterectomy. Patient reports pain is well controlled. No appetite. Has had ice chips. No nausea or vomiting. Collins is in place. O: General: awake, lying comfortably in bed. lungs: normal breathing pattern abdomen: abdominal binder in place, dressing clean and dry. gu: collins in place ext: no edema or tenderness, SCDS in place A: 36 y/o F with hx of menorrhagia, anemia, DM, HTN, POD#0 s/p total abdominal hysterectomy P: -VOUCHER EXAMINER for pain control, can d/c in AM and start PO pain medications. -IVF : LR at 125cc/hr -NPO except ice chips, can start liquid diet in AM advance as tolerated. -Collins to gravity, to be discontinued in the AM. -Zofran PRN nausea -can resume home medications in AM Case discussed with Dr. Monreal, who agrees with the assessment/plan delineated above. Aditya PGY2
[2017-08-07] MEDS: Lactated Ringer's 1,000 ML IV SCH (06:41)
[2017-08-07 06:46] LABS: BASO % 0.2 % (0.0-2.0); EOS # 0.1 K/uL (0.0-0.7); EOS % 0.4 % (0.0-4.0); HEMOGLOBIN 10.9 g/dL (12.0-16.0); LYMPH # 1.8 K/uL (1.0-4.3); LYMPH % 12.9 % (20.0-40.0); MEAN CELL VOLUME 68.2 fl (81.0-99.0); MEAN CORPUSCULAR HEMOGLOBIN 21.1 pg (27.0-31.0); MEAN PLATELET VOLUME 9.3 fl (7.2-11.7); MONO # 1.1 K/uL (0.0-0.8); MONO % 7.8 % (0.0-10.0); NEUT % 78.7 % (50.0-75.0); RBC 5.17 Mil/uL (3.80-5.20); RED CELL DISTRIBUTION WIDTH 21.6 % (11.5-14.5)
--- NOTE | 2017-08-07 08:52 | CP.PCM.PN ---
Subjective - Date & Time of Evaluation Date of Evaluation: 08/07/17 Time of Evaluation: 07:45 - Subjective Subjective: Patient seen and examined bedside. Pain mostly controlled. Villa removed this morning. No nausea or vomiting. Requesting liquid diet. Encouraged incentive spirometer, out of bed to chair with assistance. Follow trial of void. D/C IVF Objective - Vital Signs/Intake and Output Vital Signs (last 24 hours): Temp Pulse Resp BP Pulse Ox 100 F H 89 18 126/84 98 08/07/17 04:51 08/07/17 04:51 08/07/17 04:51 08/07/17 04:51 08/07/17 04:51 Intake and Output: 08/07/17 08/07/17 06:59 18:59 Intake Total 1500 Output Total 1150 Balance 350 - Medications Medications: Current Medications Hydrochlorothiazide (Microzide) 12.5 mg PO DAILY [facility] Hydromorphone HCl (Dilaudid 0.2 Mg/Ml Fuel Technician) 0 mg IV PRN PRN; Protocol PRN Reason: Pain, severe (8-10) Stop: 08/07/17 16:30 Last Admin: 08/06/17 17:19 Dose: 6 mg Ibuprofen (Motrin Tab) 400 mg PO Q6H PRN PRN Reason: Pain, Mild (1-3) Metformin HCl (Glucophage) 500 mg PO BIDWM [facility] Ondansetron HCl (Zofran Inj) 4 mg IVP Q6 PRN PRN Reason: Nausea/Vomiting Oxycodone/Acetaminophen (Percocet 5/325 Mg Tab) 2 tab PO Q4 PRN PRN Reason: Pain, severe (8-10) Sertraline HCl (Zoloft) 100 mg PO DAILY [facility] - Labs Labs: 08/07/17 05:45 - Constitutional Appears: Well - Head Exam Head Exam: ATRAUMATIC, NORMAL INSPECTION, NORMOCEPHALIC - Eye Exam Eye Exam: EOMI, Normal appearance, PERRL - Respiratory Exam Respiratory Exam: Clear to Ausculation Bilateral, NORMAL BREATHING PATTERN - Cardiovascular Exam Cardiovascular Exam: REGULAR RHYTHM, +S1, +S2 - GI/Abdominal Exam GI & Abdominal Exam: Hypoactive Bowel Sounds Additional comments: incision clean and dry, intact. appropriately tender in lower abdomen - Exam External exam: NORMAL EXTERNAL EXAM (no discharge on pad) - Extremities Exam Extremities Exam: Normal Inspection. absent: Calf Tenderness - Neurological Exam Neurological Exam: Alert, Awake, CN II-XII Intact - Psychiatric Exam Psychiatric exam: Normal Affect, Normal Mood - Skin Skin Exam: Normal Color Assessment and Plan - Assessment and Plan (Free Text) Assessment: POD#1 36 year old female s/p total abdominal hysterectomy. -Doing well post operatively -start liquid diet -d/c IVF, PATIENT ASSESSMENT COORDINATOR to discontinued -PO pain control -resume hctz and zoloft. -resume metformin once tolerating PO intake. Will discuss with attending Aditya PGY2
[2017-08-07] MEDS ORDERED: Oxycodone/Acetaminophen 5/325 mg Tab PO PRN (09:00)
[2017-08-07] MEDS: Oxycodone/Acetaminophen 5/325 mg Tab PO PRN ×2 (14:59→21:04)
[2017-08-08] MEDS: Oxycodone/Acetaminophen 5/325 mg Tab PO PRN (06:21)
--- NOTE | 2017-08-08 07:40 | CP.PCM.PN ---
Subjective - Date & Time of Evaluation Date of Evaluation: 08/08/17 Time of Evaluation: 07:40 - Subjective Subjective: POD#2 s/p CODY Patient seen and examined bedside. Pain controlled with percocet. Tolerating regular diet. No nausea or vomiting. Voiding well. Has not passed flatus. Encouraged ambulation today, in hallway as well as incentive spirometry. Vitals reviewed. Objective - Vital Signs/Intake and Output Vital Signs (last 24 hours): Temp Pulse Resp BP Pulse Ox 98.7 F 94 H 18 131/83 97 08/08/17 06:00 08/08/17 06:00 08/08/17 06:00 08/08/17 06:00 08/08/17 06:00 - Medications Medications: Current Medications Hydrochlorothiazide (Microzide) 12.5 mg PO DAILY [facility] Last Admin: 08/07/17 09:03 Dose: 12.5 mg Ibuprofen (Motrin Tab) 800 mg PO Q8 PRN PRN Reason: Pain, Mild (1-3) Last Admin: 08/07/17 18:09 Dose: 800 mg Metformin HCl (Glucophage) 500 mg PO BIDWM [facility] Last Admin: 08/07/17 18:09 Dose: 500 mg Ondansetron HCl (Zofran Inj) 4 mg IVP Q6 PRN PRN Reason: Nausea/Vomiting Oxycodone/Acetaminophen (Percocet 5/325 Mg Tab) 2 tab PO Q4 PRN PRN Reason: Pain, severe (8-10) Last Admin: 08/07/17 21:04 Dose: 2 tab Oxycodone/Acetaminophen (Percocet 5/325 Mg Tab) 1 tab PO Q4 PRN PRN Reason: Pain, moderate (4-7) Stop: 08/10/17 09:01 Last Admin: 08/08/17 06:21 Dose: 1 tab Sertraline HCl (Zoloft) 100 mg PO DAILY [facility] Last Admin: 08/07/17 09:03 Dose: 100 mg - Labs Labs: 08/07/17 05:45 - Constitutional Appears: Non-toxic, No Acute Distress - Head Exam Head Exam: ATRAUMATIC, NORMAL INSPECTION, NORMOCEPHALIC - Respiratory Exam Respiratory Exam: Clear to Ausculation Bilateral, NORMAL BREATHING PATTERN - Cardiovascular Exam Cardiovascular Exam: REGULAR RHYTHM, +S1, +S2 - GI/Abdominal Exam GI & Abdominal Exam: Soft, Tenderness (appropriately tender around incision.). absent: Distended, Guarding Additional comments: incision clean and dry, shanta in place. compress over incision is clean. - Neurological Exam Neurological Exam: Alert, Awake, CN II-XII Intact - Psychiatric Exam Psychiatric exam: Normal Affect, Normal Mood - Skin Skin Exam: Dry, Intact, Normal Color, Warm Assessment and Plan - Assessment and Plan (Free Text) Assessment: POD#2 s.p CODY 36 year old female s/p CODY, doing well postoperatively Continue with regular diet. Encouraged ambulation and incentive spirometry Pain control with motrin/percocet Burgess PGY2 Will d/w attending
[2017-08-08] MEDS ORDERED: Oxycodone/Acetaminophen 5/325 mg Tab PO PRN (09:00)
--- NOTE | 2017-08-08 23:04 | OP ---
PROCEDURE DATE: 08/06/2017 PREOPERATIVE DIAGNOSES: Menorrhagia and uterine leiomyoma. POSTOPERATIVE DIAGNOSES: Menorrhagia and uterine leiomyoma. PROCEDURE: Total abdominal hysterectomy. SURGEON: Rosalba Monreal MD CONTINUOUS MINER: Cal Ibarra MD TYPE OF ANESTHESIA: General. ANESTHESIA ADMINISTERED BY: Nate Louise MD. ESTIMATED BLOOD LOSS: 200 mL. INTRAVENOUS FLUIDS: 2300 mL lactated Ringer's. URINE OUTPUT: 700 mL, clear at the end of procedure. SPECIMEN: Uterus to pathology. COMPLICATIONS: None. FINDINGS: Exam under anesthesia revealed an approximately 10-week sized uterus with multiple leiomyoma, normal adnexa. On intraoperative evaluation, the same was noted with a uterus with multiple leiomyoma noted and bilateral tubes and ovaries appear to be normal. INDICATIONS: This is a 36-year-old G3, P2 with a past medical history significant for diabetes, hypertension and migraines, who presented for a scheduled abdominal hysterectomy as the patient had a long history of menorrhagia and uterine leiomyoma. She tried medical management previously with Depo-Provera and oral medroxyprogesterone pills which gave minimal relief. Due to this, the patient desired definitive therapy because her symptoms were not improved with the medical management. The patient had 2 sections and history of one miscarriage. The risks, benefits and alternatives to the procedure were all reviewed with the patient with the design engineer marine equipment present. She understood all the risk of the total abdominal hysterectomy including, but not limited to the risk of infection, injury to the major blood vessels, to the bowel, bladder and the ureters and the injury to the bladder and ureter may result in renal function loss, fistula formation or may require future restorative surgery. Major hemorrhage would also require blood transfusion. There was also rare risk of that as a result of surgical complications, the patient understood all the risks and desired to proceed with the procedure. DESCRIPTION OF PROCEDURE: She was taken to the operating room with IV running and pneumatic compression stocking and sequential compression devices applied to lower extremities. General anesthesia was obtained without difficulty. The patient was examined under anesthesia with the findings noted above. The patient prepped and draped in the dorsal supine position. A Villa catheter was also inserted and the bladder was emptied. A Pfannenstiel skin incision was then made with the scalpel through the previous Pfannenstiel scar and this incision was carried down to the fascia with the Bovie. The fascia was then incised in the midline and this incision was extended laterally using the Bovie. The inferior aspect of the fascial incision was then grasped with Jefry clamps, elevated, and the underlying rectus muscles were dissected off with the Bovie, then bluntly. Attention was then turned to the superior aspect of the fascial incision, which in a similar fashion was elevated and dissected off with the Bovie, then bluntly. The rectus muscles were meticulously in the midline. The peritoneum was identified and entered with Metzenbaum scissors. This incision was then extended laterally, superiorly and inferiorly paying close attention to the bladder. Following this, moist laparotomy sponges were used to pack away the bowel and a self-retaining retractor was introduced into the incision. The patient was placed in slight Trendelenburg position. Praveena clamps were then placed bilaterally along the cornu of the uterus and traction was applied to facilitate exposure and dissection. The round ligament was identified, cut with the Bovie and suture ligated bilaterally and the anterior leaf of the broad ligament was then dissected to the midline of the vesicouterine peritoneum. The bladder was then dissected off of the uterus and the cervix with the Metzenbaum scissors. A window was created in avascular area of the posterior leaf. The ovarian ligament of Fallopian tube was then clamped, cut and doubly ligated and good hemostasis was noted. The uterine vessels were then skeletonized and doubly clamped and cut bilaterally. The pedicles were suture ligated and good hemostasis was noted. The cardinal ligament and uterosacral ligament were then sequentially clamped and cut and suture ligated. Curved Raquel clamps were placed at the angles of vagina and cervix was removed from the vaginal cuff using Alexa scissors. The uterus and cervix was then handed off of the field for pathology. The vaginal angles were then closed with Raquel stitch and tied to the uterosacral ligament to provide support to the vaginal cuff. The vaginal cuff was then closed with a continuous running suture followed by [id number] suture and good hemostasis was noted. The pelvis was then irrigated with normal saline. SurgiSeal was then placed over the vaginal cuff stitch. The patient was taken out of Trendelenburg position. All laparotomy sponges and the self-retaining retractor was removed. The peritoneum was then closed with 2-0 Vicryl in a running fashion. The muscle was re-approximated using 2-0 Vicryl for 3 horizontal mattress sutures. The fascia was re-approximated with 0-Vicryl suture bilaterally to the midline. The Bovie was used to obtain hemostasis on the subcutaneous fat layer and this was also closed with 4 interrupted sutures using 3-0 plain suture. The skin was closed with shanta and the incision was covered with a sterile dressing. The patient tolerated the procedure well. Ancef 2 g was given preoperatively. The patient was awaken from anesthesia and taken to the recovery room in stable condition. There was no injury to the bladder, bowel or ureters noted. Due to the nature of the case, an assistant professor was requested. My assistant professor Dr. Ibarra was present from the initial incision to the patient's transfer to the recovery room. Dr. Ibarra assisted with all aspects of the procedure including ligation of uterine vessels and removal of the uterus and suturing for the vaginal cuff. He also assisted with entry into the abdominal/pelvic cavity and closure of all layers of the abdominal wall. The procedure could not have been performed without his assistance. Rosalba Monreal MD [facility]
[2017-08-09] MEDS ORDERED: Bisacodyl 5mg EC Tab PO ONE (08:42)
--- NOTE | 2017-08-09 08:45 | CP.PCM.PN ---
Subjective - Date & Time of Evaluation Date of Evaluation: 08/09/17 Time of Evaluation: 07:40 - Subjective Subjective: Patient seen and examined bedside. Lying in bed comfortably. Abominal binder off, next to patient. Able to walk around last night, two more times. She has not passed flatus, is belching though. Objective - Vital Signs/Intake and Output Vital Signs (last 24 hours): Temp Pulse Resp BP Pulse Ox 99.1 F 88 18 134/86 97 08/08/17 22:00 08/08/17 22:00 08/08/17 22:00 08/08/17 22:00 08/08/17 22:00 - Medications Medications: Current Medications Hydrochlorothiazide (Microzide) 12.5 mg PO DAILY [facility] Last Admin: 08/09/17 08:37 Dose: 12.5 mg Ibuprofen (Motrin Tab) 800 mg PO Q8 PRN PRN Reason: Pain, Mild (1-3) Last Admin: 08/09/17 01:30 Dose: 800 mg Metformin HCl (Glucophage) 500 mg PO BIDWM [facility] Last Admin: 08/09/17 08:36 Dose: 500 mg Ondansetron HCl (Zofran Inj) 4 mg IVP Q6 PRN PRN Reason: Nausea/Vomiting Oxycodone/Acetaminophen (Percocet 5/325 Mg Tab) 2 tab PO Q4 PRN PRN Reason: Pain, severe (8-10) Last Admin: 08/07/17 21:04 Dose: 2 tab Oxycodone/Acetaminophen (Percocet 5/325 Mg Tab) 1 tab PO Q4 PRN PRN Reason: Pain, moderate (4-7) Stop: 08/10/17 09:01 Last Admin: 08/08/17 06:21 Dose: 1 tab Sertraline HCl (Zoloft) 100 mg PO DAILY [facility] Last Admin: 08/09/17 08:28 Dose: 100 mg - Labs Labs: 08/07/17 05:45 - Constitutional Appears: Well - Head Exam Head Exam: ATRAUMATIC, NORMAL INSPECTION, NORMOCEPHALIC - Eye Exam Eye Exam: Normal appearance - ENT Exam ENT Exam: Mucous Membranes Moist, Normal Exam - Respiratory Exam Respiratory Exam: NORMAL BREATHING PATTERN - Cardiovascular Exam Cardiovascular Exam: REGULAR RHYTHM - GI/Abdominal Exam GI & Abdominal Exam: Soft, Tenderness (mild incisional). absent: Distended, Guarding Additional comments: +bowel sounds. incision: clean and dry, shanta in place. - Extremities Exam Extremities Exam: Full ROM, Normal Inspection. absent: Pedal Edema - Neurological Exam Neurological Exam: Alert, Awake, CN II-XII Intact - Psychiatric Exam Psychiatric exam: Normal Affect, Normal Mood - Skin Skin Exam: Dry, Intact, Normal Color, Warm Assessment and Plan - Assessment and Plan (Free Text) Assessment: POD#3 s/p CODY Pain controlled. Tolerating diet. No Flatus. Encouraged ambulation. Will give suppository and senokot and reassess patient this afternoon. Case discussed with attending, who agrees with assessment and plan delineated above. Aditya PGY2
[2017-08-09] MEDS ORDERED: Docusate-Senna 50 mg-8.6 mg Tab PO ONE (08:48)
[2017-08-09] MEDS: Oxycodone/Acetaminophen 5/325 mg Tab PO PRN (11:35)
--- NOTE | 2017-08-09 15:03 | CP.PCM.DIS ---
Provider - Provider Date of Admission: 08/06/17 11:23 Attending physician: Rosalba Monreal MD Time Spent in preparation of Discharge (in minutes): 35 Diagnosis - Discharge Diagnosis (1) S/P total abdominal hysterectomy Status: Acute Hospital Course - Lab Results Lab Results: Most Recent Lab Values WBC 14.0 K/uL (4.8-10.8) H D 08/07/17 05:45 RBC 5.17 Mil/uL (3.80-5.20) 08/07/17 05:45 Hgb 10.9 g/dL (12.0-16.0) L 08/07/17 05:45 Hct 35.3 % (34.0-47.0) 08/07/17 05:45 MCV 68.2 fl (81.0-99.0) L 08/07/17 05:45 MCH 21.1 pg (27.0-31.0) L 08/07/17 05:45 MCHC 31.0 g/dL (33.0-37.0) L 08/07/17 05:45 RDW 21.6 % (11.5-14.5) H 08/07/17 05:45 Plt Count 300 K/uL (130-400) 08/07/17 05:45 MPV 9.3 fl (7.2-11.7) 08/07/17 05:45 Neut % (Auto) 78.7 % (50.0-75.0) H 08/07/17 05:45 Lymph % (Auto) 12.9 % (20.0-40.0) L 08/07/17 05:45 Parker % (Auto) 7.8 % (0.0-10.0) 08/07/17 05:45 Eos % (Auto) 0.4 % (0.0-4.0) 08/07/17 05:45 Baso % (Auto) 0.2 % (0.0-2.0) 08/07/17 05:45 Neut # (Auto) 11.0 K/uL (1.8-7.0) H 08/07/17 05:45 Lymph # (Auto) 1.8 K/uL (1.0-4.3) 08/07/17 05:45 Parker # (Auto) 1.1 K/uL (0.0-0.8) H 08/07/17 05:45 Eos # (Auto) 0.1 K/uL (0.0-0.7) 08/07/17 05:45 Baso # (Auto) 0.0 K/uL (0.0-0.2) 08/07/17 05:45 POC Glucose (mg/dL) 135 mg/dL (65-110) H 08/06/17 11:38 Blood Type A POSITIVE 08/06/17 06:20 Antibody Screen Negative 08/06/17 06:20 BBK History Checked Patient has bt 08/06/17 06:20 - Hospital Course Hospital Course: 36 year old female with past medical history significant for diabetes, hypertension, menorrhagia 2' to fibroids, anemia admitted s/p total abdominal hysterectomy. Patient did well postoperatively. Was ambulating around the unit, and is passing flatus. She has shanta in place that are to be removed 1 week after discharge. She has follow up appt with Dr. Monreal on August 15, 2017 at 13:00. - Date & Time of H&P Date of H&P: 08/06/17 Time of H&P: 08:30 Discharge Plan - Discharge Medications Prescriptions: Ibuprofen [Motrin Tab] 800 mg PO Q8 PRN #30 tab PRN Reason: Pain, Mild (1-3) oxyCODONE/Acetaminophen [Percocet 5/325 mg Tab] 1 tab PO Q4 PRN #30 tab PRN Reason: Pain, Moderate (4-7) - Follow Up Plan Condition: GOOD Disposition: HOME/ ROUTINE Instructions: How to Wash Your Hands Properly, Hysterectomy, Abdominal or Laparoscopic Surgery Referrals: Rosalba Monreal MD [Staff Provider] -
[2017-08-09 16:26] VITALS: BP 123/84; PULSE 94; RESP 20; TEMP 98.1; O2SAT 97
== END 2017-08-09 17:40 | disposition home or self-care (01) | DRG 359 ==
LOC: H.OPSURG 06:01 → H.PEDS 11:23
PROVIDERS: ADMIT Obstetrics & Gynecology; ATTEND Obstetrics & Gynecology
PROC: 0UT90ZZ Resection of Uterus, Open Approach (ICD-10-PCS; principal; 2017-08-06 07:45)
DX: D25.9 Leiomyoma of uterus, unspecified (principal); E11.9 Type 2 diabetes mellitus without complications; I10 Essential (primary) hypertension; N92.0 Excessive and frequent menstruation with regular cycle

== ENCOUNTER 2017-08-12 22:02 | Emergency (ER) | payer SELFPAY ==
[2017-08-12 22:02] VITALS: BMI 32.4
[2017-08-12 22:10] VITALS: TEMP 98.1; O2SAT 99
--- NOTE | 2017-08-12 23:02 | ED PDOC ---
HPI: Abdomen Time Seen by Provider: 08/12/17 22:12 Chief Complaint (Nursing): Abdominal Pain History Per: Patient History/Exam Limitations: no limitations Onset/Duration Of Symptoms: Sudden Onset (today) Current Symptoms Are (Timing): Still Present Severity: Moderate Location Of Pain/Discomfort: Suprapubic Quality Of Discomfort: Sharp Associated Symptoms: denies: Fever, Chills, Nausea, Vomiting, Diarrhea, Back Pain, Chest Pain, Constipation, Urinary Symptoms Exacerbating Factors: None Alleviating Factors: None Additional History Per: Patient, Family Additional Complaint(s): Pt reports she had a hysterectomy approx 1 week ago. She coughed today and felt like "something popped". + guarding area. 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 Past Medical History Reviewed: Historical Data, Nursing Documentation, Vital Signs Vital Signs: Last Vital Signs Temp 98.1 F 08/12/17 22:06 Pulse 96 H 08/12/17 22:06 Resp 18 08/12/17 22:06 BP 153/93 H 08/12/17 22:06 Pulse Ox 99 08/12/17 23:05 - Medical History PMH: Anemia (transfused 2 units), Anxiety, Depression, HTN, Migraine Denies: Chronic Kidney Disease - Surgical History Surgical History: (x2) - Family History Family History: States: Unknown Family Hx - Living Arrangements Living Arrangements: With Family - Home Medications Home Medications: Ambulatory Orders Medication Instructions Recorded Ibuprofen [Motrin Tab] 800 mg PO Q8 PRN #30 tab 08/09/17 Sertraline [Zoloft] 100 mg PO DAILY tab 08/09/17 hydroCHLOROthiazide [Microzide] 12.5 mg PO DAILY cap 08/09/17 metFORMIN [glucOPHAGE] 500 mg PO BIDWM tab 08/09/17 oxyCODONE/Acetaminophen [Percocet 1 tab PO Q4 PRN #30 tab 08/09/17 5/325 mg Tab] - Allergies Allergies/Adverse Reactions: Allergies Allergy/AdvReac Type Severity Reaction Status Date / Time No Known Allergies Allergy Verified 03/20/17 20:13 Review of Systems ROS Statement: Except As Marked, All Systems Reviewed And Found Negative Constitutional: Negative for: Fever, Chills Cardiovascular: Negative for: Chest Pain, Palpitations Respiratory: Negative for: Cough, Shortness of Breath Gastrointestinal: Positive for: Abdominal Pain. Negative for: Nausea, Vomiting , Diarrhea Musculoskeletal: Negative for: Neck Pain Skin: Negative for: Rash Physical Exam - Reviewed Nursing Documentation Reviewed: Yes Vital Signs Reviewed: Yes - Physical Exam Appears: Positive for: Non-toxic, Uncomfortable Head Exam: Positive for: ATRAUMATIC, NORMAL INSPECTION, NORMOCEPHALIC Eye Exam: Positive for: Normal appearance, EOMI, PERRL Neck: Positive for: Normal, Painless ROM, Supple Cardiovascular/Chest: Positive for: Regular Rate, Rhythm, Chest Non Tender. Negative for: Edema, Gallop, Murmur, Bradycardia, Tachycardia Respiratory: Positive for: Normal Breath Sounds. Negative for: Decreased Breath Sounds, Accessory Muscle Use, Crackles, Rales, Rhonchi, Stridor, Wheezing , Respiratory Distress Gastrointestinal/Abdominal: Positive for: Bowel Sounds, Soft, Tenderness (mild suprapubic), Other (pfannisteal incision c/d/i affixed with shanta). Negative for: Organomegaly, Mass, Distended, Guarding, Rebound, Hernia, Asicites Back: Positive for: Normal Inspection. Negative for: L CVA Tenderness, R CVA Tenderness Extremity: Positive for: Normal ROM. Negative for: Tenderness, Pedal Edema, Calf Tenderness, Deformity, Swelling Neurologic/Psych: Positive for: Alert, fiscal analyst II-XII, Oriented. Negative for: Motor/Sensory Deficits - Laboratory Results Result Diagrams: 08/12/17 23:11 08/12/17 23:11 - ECG O2 Sat by Pulse Oximetry: 99 Pulse Ox Interpretation: Normal Medical Decision Making Medical Decision Making: discussed with Dr Lares will get ct abd and pelvis Disposition - Clinical Impression Clinical Impression: Abdominal pain in female - Patient ED Disposition Is Patient to be Admitted: Transfer of Care Counseled Patient/Family Regarding: Studies Performed, Diagnosis - Disposition Disposition Time: 23:58 Condition: STABLE Forms: [employer] (Czech) Patient Signed Over To: Eric Marquez
[2017-08-12 23:16] LABS: BASO # 0.1 K/uL (0.0-0.2); BASO % 0.8 % (0.0-2.0); EOS # 0.3 K/uL (0.0-0.7); EOS % 2.4 % (0.0-4.0); HEMOGLOBIN 10.6 g/dL (12.0-16.0); LYMPH % 25.1 % (20.0-40.0); MEAN CELL VOLUME 68.6 fl (81.0-99.0); MEAN CORPUSCULAR HEMOGLOBIN 21.4 pg (27.0-31.0); MEAN CORPUSCULAR HGB CONC 31.2 g/dL (33.0-37.0); MEAN PLATELET VOLUME 8.7 fl (7.2-11.7); MONO # 0.7 K/uL (0.0-0.8); NEUT # 7.8 K/uL (1.8-7.0); NEUT % 65.7 % (50.0-75.0); RBC 4.96 Mil/uL (3.80-5.20); RED CELL DISTRIBUTION WIDTH 22.5 % (11.5-14.5); WHITE BLOOD COUNT 11.9 K/uL (4.8-10.8)
[2017-08-12 23:31] LABS: ALBUMIN 4.1 g/dL (3.5-5.0); ALT/SGPT 54 U/L (9-52); AMYLASE 94 U/L (30-110); AST/SGOT 33 U/L (14-36); BLOOD UREA NITROGEN 14 mg/dl (7-17); CALCIUM 9.7 mg/dL (8.4-10.2); GFR AFRICAN-AMERICAN > 60; GFR NON-AFRICAN AMERICAN > 60; LIPASE 152 U/L (23-300)
[2017-08-12] MEDS ORDERED: Iohexol 240 (50 ml) ONE (23:41)
[2017-08-12] MEDS ORDERED: Morphine 4 MG/ML VIAL ONE (23:41)
[2017-08-12] MEDS: Sodium Chloride 0.9% 1,000 ML IV ONE (23:46)
[2017-08-12] MEDS: Morphine 4 MG/ML VIAL IVP STA (23:48)
[2017-08-12] MEDS: Iohexol 240 (50 ml) PO ONE (23:48)
[2017-08-13] MEDS ORDERED: Iohexol 300 100 ML IJ ONE (01:40)
[2017-08-13] MEDS ORDERED: Sodium Chloride 0.9% 100 ML ONE (01:40)
--- NOTE | 2017-08-13 03:11 | CT ---
EXAM: CT Abdomen and Pelvis With Intravenous Contrast CLINICAL HISTORY: 36 years old, female; Pain; Abdominal pain; Localized; Lower; Prior surgery; Surgery date: 3-7 days post-operative; Surgery type: Hysterectomy 08/06/17; Additional info: Abd pain recent hystrectomy TECHNIQUE: Axial computed tomography images of the abdomen and pelvis with intravenous contrast. All CT scans at this facility use one or more dose reduction techniques, viz.: automated exposure control; ma/kV adjustment per patient size (including targeted exams where dose is matched to indication; i.e. head); or iterative reconstruction technique. Coronal and sagittal reformatted images were created and reviewed. CONTRAST: 90 mL of administered intravenously. COMPARISON: No relevant prior studies available. FINDINGS: Lower thorax: Mild atelectasis/scarring. ABDOMEN: Liver: Fatty infiltration. Gallbladder and bile ducts: No calcified stones. No ductal dilation. Pancreas: No ductal dilation. No mass. Spleen: No splenomegaly. Adrenals: No mass. Kidneys and ureters: No mass. No hydronephrosis. Stomach and bowel: Segmental areas of probable underdistention of LEFT colon. No definite mural thickening. No obstruction. Appendix: Normal caliber. No inflammation. PELVIS: Bladder: Apparent mild bladder wall thickening. Incomplete distention, limiting evaluation. Reproductive: Unremarkable as visualized. ABDOMEN and PELVIS: Intraperitoneal space: Small amorphous fluid collection with apparent partial peripheral enhancement, roughly 3.9 x 3.0 x 5.1 cm. Small cluster of air within midline pelvis within or just adjacent to fluid collection. Bones/joints: Chronic L5 pars defects with anterolisthesis. No acute fracture. Soft tissues: Mild linear stranding with few small foci of air within anterior pelvic wall with overlying skin shanta. Small amount of fluid with few small foci of air without peripheral enhancement within lower rectus abdominis muscle. Vasculature: Unremarkable. No aneurysm. Lymph nodes: No pathologically enlarged lymph nodes. IMPRESSION: 1. Fluid collection within pelvis with partial peripheral enhancement. DDX: Seroma, hematoma, early abscess. 2. Probable postoperative changes within anterior pelvic wall. 3. Mild cystitis vs underdistention. Correlate with urinalysis. 4. Incidental/non-acute findings are described above.
--- NOTE | 2017-08-13 03:23 | ED PDOC ---
- Laboratory Results Result Diagrams: 08/12/17 23:11 08/12/17 23:11 - ECG O2 Sat by Pulse Oximetry: 99 Medical Decision Making Medical Decision Makin Patient signed out to me pending CT results. 0315 CT FINDINGS: Lower thorax: Mild atelectasis/scarring. ABDOMEN: Liver: Fatty infiltration. Gallbladder and bile ducts: No calcified stones. No ductal dilation. Pancreas: No ductal dilation. No mass. Spleen: No splenomegaly. Adrenals: No mass. Kidneys and ureters: No mass. No hydronephrosis. Stomach and bowel: Segmental areas of probable underdistention of LEFT colon. No definite mural thickening. No obstruction. Appendix: Normal caliber. No inflammation. PELVIS: Bladder: Apparent mild bladder wall thickening. Incomplete distention, limiting evaluation. Reproductive: Unremarkable as visualized. Intraperitoneal space: Small amorphous fluid collection with apparent partial peripheral enhancement, roughly 3.9 x 3.0 x 5.1 cm. Small cluster of air within midline pelvis within or just adjacent to fluid collection. Bones/joints: Chronic L5 pars defects with anterolisthesis. No acute fracture. Soft tissues: Mild linear stranding with few small foci of air within anterior pelvic wall with overlying skin shanta. Small amount of fluid with few small foci of air without peripheral enhancement within lower rectus abdominis muscle. Vasculature: Unremarkable. No aneurysm. Lymph nodes: No pathologically enlarged lymph nodes. IMPRESSION: 1. Fluid collection within pelvis with partial peripheral enhancement. DDX: Seroma, hematoma, early abscess. 2. Probable postoperative changes within anterior pelvic wall. 3. Mild cystitis vs underdistention. Correlate with urinalysis. 4. Incidental/non-acute findings are described above. 0340 Upon re-evaluation, patient notes that symptoms have improved. Patient will follow up with Dr. Monreal later today. Return precautions discussed, such as worsening or onset of new symptoms. Patient is stable for discharge home: condition improved. Scribe Attestation: Documented by Tracie Rojas acting as a scribe for Eric Marquez MD. Scribe Attestation: All medical record entries made by the Scribe were at my direction and personally dictated by me. I have reviewed the chart and agree that the record accurately reflects my personal performance of the history, physical exam, medical decision making, and the department course for this patient. I have also personally directed, reviewed, and agree with the discharge instructions and disposition. Disposition - Clinical Impression Clinical Impression: Abdominal pain in female, UTI (urinary tract infection) - POA Present On Arrival: None - Disposition Disposition: Routine/Home Disposition Time: 03:45 Condition: IMPROVED Prescriptions: Ketorolac Tromethamine [Toradol] 10 mg PO BID #30 tab Nitrofurantoin Macrocrystals [Macrobid] 100 mg PO BID 5 Days cap Instructions: Urinary Tract Infections in Adults, Acute Abdomen (Belly Pain), Adult (DC) Forms: [id number] (Bhutanese)
[2017-08-13 04:05] VITALS: BP 127/89; PULSE 72; RESP 16
--- NOTE | 2017-08-16 18:27 | CARD ---
APPROVED REPORT EKG Measurement Heart [id number] <Conclusion> Normal sinus rhythm Nonspecific ST abnormality Abnormal ECG
== END 2017-08-13 04:09 | disposition home or self-care (01) ==
LOC: H.ER 22:02
DX: N39.0 Urinary tract infection, site not specified (principal); Z79.84 Long term (current) use of oral hypoglycemic drugs; Z90.710 Acquired absence of both cervix and uterus; F41.9 Anxiety disorder, unspecified; I10 Essential (primary) hypertension
CPT/HCPCS: 74177; 80053; 82150; 83690; 84484; 85025; 87086; 93005; 96361; 96374; 96375; 99283; J1885; J2270; J7040; Q9966; Q9967

== ENCOUNTER 2017-08-17 11:40 | Inpatient (IN) | payer SELFPAY ==
[2017-08-17 11:41] VITALS: BMI 32.4
[2017-08-17] MEDS ORDERED: Sodium Chloride 0.9% 1,000 ML IV SCH (12:45)
--- NOTE | 2017-08-17 12:49 | ED PDOC ---
HPI: Female Pain Chief Complaint (Provider): pelvic pain History Per: Patient History/Exam Limitations: no limitations Onset/Duration Of Symptoms: Days (5) Current Symptoms Are (Timing): Intermittent Episodes Pain Scale Rating Of: 7 Quality Of Discomfort: Sharp Associated Symptoms: Fever (subjective), Diarrhea, Urinary Symptoms, Other ( wound discharge) Additional Complaint(s): 36 yo ,f, PMh/o DM, HTN, Anemia, s/p Hysterectomy 08/06/17 presents c/o pelvic pain, intermittent, sharp, partially alleviated with tramadol, aggravated during urination, associated with fetid vaginal discharge dark brown color x 3 days, non-bloddy diarrhea for the last 3 days, dysuria, subjective fever 100.1 today and yellowish wound discharge. She denies cough, chest pain, nasal congestion, SOB, leg pain, leg swelling. Patient evaluated 08/12/17 in ED and discharged home with Macrobid for UTI x 5 days and tramadol. Patient report will finish macrobid today. Patient had f/u a day after discharge 08/[address] Frederick. reports shanta were removed and had wound yellowish discharge right side PMD: [facility] <Yadi Jones - Last Filed: 08/17/17 15:41> <Den Montana - Last Filed: 08/17/17 17:51> Time Seen by Provider: 08/17/17 12:07 Chief Complaint (Nursing): Female Genitourinary Supervising Attending Note - Supervising Attending Note The Documented history was done by the: Physician Rug Cleaner The documented physical exam was done by the: Physician Rug Cleaner The documented procedures were done by the: Physician Rug Cleaner - Attestation: I have personally seen and examined this patient.: Yes I have fully participated in the care of the patient.: Yes I have reviewed all pertinent clinical information, including history, physical exam and plan: Yes - Notes: Notes:: Here with surgical wound that is paining. Yellow dc. Fever at home. Had ct with possible abscess and uti. Put on macrobid several days ago. <Den Montana - Last Filed: 08/17/17 17:51> Past Medical History Vital Signs: Last Vital Signs Temp 98.9 F 08/17/17 11:51 Pulse 118 H 08/17/17 11:51 Resp 18 08/17/17 11:51 BP 139/87 08/17/17 11:51 Pulse Ox 100 08/17/17 11:51 - Medical History PMH: Anemia (transfused 2 units), Anxiety, Depression, HTN, Migraine Denies: Chronic Kidney Disease - Surgical History Surgical History: (x2) - Family History Family History: States: Unknown Family Hx <Yadi Jones - Last Filed: 08/17/17 15:41> Reviewed: Nursing Documentation, Vital Signs Vital Signs: Last Vital Signs Temp 97.7 F 08/17/17 12:31 Pulse 86 08/17/17 12:31 Resp 16 08/17/17 12:31 BP 139/87 08/17/17 11:51 Pulse Ox 100 08/17/17 15:41 <Den Montana - Last Filed: 08/17/17 17:51> - Home Medications Home Medications: Ambulatory Orders Medication Instructions Recorded Ibuprofen [Motrin Tab] 800 mg PO Q8 PRN #30 tab 08/09/17 Sertraline [Zoloft] 100 mg PO DAILY tab 08/09/17 hydroCHLOROthiazide [Microzide] 12.5 mg PO DAILY cap 08/09/17 metFORMIN [glucOPHAGE] 500 mg PO BIDWM tab 08/09/17 oxyCODONE/Acetaminophen [Percocet 1 tab PO Q4 PRN #30 tab 08/09/17 5/325 mg Tab] Ketorolac Tromethamine [Toradol] 10 mg PO BID #30 tab 08/13/17 Nitrofurantoin Macrocrystals 100 mg PO BID 5 Days cap 08/13/17 [Macrobid] - Allergies Allergies/Adverse Reactions: Allergies Allergy/AdvReac Type Severity Reaction Status Date / Time No Known Allergies Allergy Verified 03/20/17 20:13 Review of Systems Constitutional: Positive for: Fever Gastrointestinal: Positive for: Diarrhea Genitourinary Female: Positive for: Dysuria, Pelvic Pain <Yadi Jones - Last Filed: 08/17/17 15:41> Physical Exam - Physical Exam Appears: Positive for: Well, No Acute Distress Head Exam: Positive for: ATRAUMATIC, NORMOCEPHALIC Skin: Positive for: Normal Color Eye Exam: Positive for: Normal appearance Neck: Positive for: Normal Cardiovascular/Chest: Positive for: Regular Rate, Rhythm. Negative for: Murmur Respiratory: Positive for: Normal Breath Sounds. Negative for: Crackles, Rales , Rhonchi, Wheezing Gastrointestinal/Abdominal: Positive for: Soft, Tenderness (suprapubic TD, no guarding, no rebound), Other (pfannenstiel incision, wound open 1cm right side with yellowish discharge). Negative for: Distended, Guarding, Rebound Pelvic Exam: Positive for: Discharge (mild dark brown color fetid discharge on pad) Back: Positive for: Normal Inspection. Negative for: L CVA Tenderness, R CVA Tenderness Extremity: Positive for: Normal ROM. Negative for: Tenderness, Pedal Edema Neurologic/Psych: Positive for: Alert, Oriented <Yadi Jones - Last Filed: 08/17/17 15:41> - Physical Exam Appears: Positive for: Uncomfortable Cardiovascular/Chest: Positive for: Regular Rate, Rhythm Respiratory: Positive for: Normal Breath Sounds Gastrointestinal/Abdominal: Positive for: Tenderness, Other <Den Montana - Last Filed: 08/17/17 17:51> - Laboratory Results Result Diagrams: 08/17/17 13:00 08/17/17 13:00 - ECG O2 Sat by Pulse Oximetry: 100 <Yadi Jones - Last Filed: 08/17/17 15:41> - Laboratory Results Result Diagrams: 08/17/17 13:00 08/17/17 13:00 Interpretation Of Abn Labs: 13.5 wbc, lactate 2.2, urine wbc - ECG ECG: Positive for: Interpreted By Me, Viewed By Me ECG Rhythm: Positive for: Normal QRS, Normal ST Segment, Sinus Rhythm Pulse Ox Interpretation: Normal - Radiology X-Ray: Read By Radiologist X-Ray Interpretation: No Acute Disease - Other Rad ct X-Ray: Read By Radiologist X-Ray Interpretation: collection in pelvis - CT Scan/US US Other Rad Studies (CT/US): Read By Radiologist Other Rad Interpretation: no acute - Progress ED Course And Treament: 1747: Spoke with Dr. Molina. Will see pt. in the ED. Will admit. Stable. AAOx3. - Critical Care Total Time (In Min): 30 Documented Critical Care: Time excludes all time spent performint seperately billable procedures <Den Montana - Last Filed: 08/17/17 17:51> Medical Decision Making Medical Decision Makin:30 36 yo ,f, Patient with PMhx/o DM, HTN, S/p hysterectomy 08/06, recent evaluated for UTI, returns with persist pelvic pain, dysuria, fetid vaginal discharge, wound discharge. Impression Post op complicated with UTI and wound infection -Intrabdominal collection( reported CT abd 08/12 intrabdominal fluid collection possible early abscess) Plan CBC, CMP, Lactic acid, VBG, blood cx, urine cx EKG, CXR IV fluids 1l NS,Toradol Abd US -reevaluation 13: 40 Patient reevaluated, reports persists pelvic pain will give morphine 4 mg IV CBC, leukocytosis with left shift deviation WBC 13.5 UA: turbid, leukocyturia, hematuria, nitrate neg, leukocyte sterase positive. <Yadi Jones - Last Filed: 08/17/17 15:41> Disposition <Yadi Jones - Last Filed: 08/17/17 15:41> - Patient ED Disposition Is Patient to be Admitted: Yes Counseled Patient/Family Regarding: Studies Performed, Diagnosis - Disposition Disposition Time: 17:51 - Pt Status Changed To: Hospital Disposition Of: Inpatient - Admit Certification Admit to Inpatient:: After my assessment, the patient will require hospitalization for at least two midnights. This is because of the severity of symptoms shown, intensity of services needed, and/or the medical risk in this patient being treated as an outpatient. - POA Present On Arrival: Surgical Site Infection <Den Montana - Last Filed: 08/17/17 17:51> - Clinical Impression Clinical Impression: Wound abscess, Severe sepsis, UTI (urinary tract infection) - Disposition Condition: FAIR
[2017-08-17 13:12] LABS: VENOUS BLOOD GAS BASE EXCESS 1.6 mmol/L (0.0-2.0); VENOUS BLOOD GAS PCO2 46 mmHg (40-60); VENOUS BLOOD GAS PO2 17 mm/Hg (30-55); VENOUS BLOOD PH 7.38 (7.32-7.43)
[2017-08-17 13:20] LABS: BASO # 0.1 K/uL (0.0-0.2); BASO % 0.4 % (0.0-2.0); EOS # 0.2 K/uL (0.0-0.7); EOS % 1.5 % (0.0-4.0); HEMOGLOBIN 10.3 g/dL (12.0-16.0); LYMPH # 2.1 K/uL (1.0-4.3); LYMPH % 15.7 % (20.0-40.0); MEAN CELL VOLUME 68.9 fl (81.0-99.0); MEAN CORPUSCULAR HEMOGLOBIN 21.7 pg (27.0-31.0); MEAN CORPUSCULAR HGB CONC 31.5 g/dL (33.0-37.0); MEAN PLATELET VOLUME 9.3 fl (7.2-11.7); MONO # 0.8 K/uL (0.0-0.8); MONO % 6.3 % (0.0-10.0); NEUT # 10.2 K/uL (1.8-7.0); NEUT % 76.1 % (50.0-75.0); RBC 4.75 Mil/uL (3.80-5.20); RED CELL DISTRIBUTION WIDTH 23.1 % (11.5-14.5); WHITE BLOOD COUNT 13.5 K/uL (4.8-10.8)
--- NOTE | 2017-08-17 13:24 | RAD ---
HISTORY: Sepsis Patient COMPARISON: Comparison chest 03/20/2017 FINDINGS: LUNGS: No active pulmonary disease. PLEURA: No significant pleural effusion identified, no pneumothorax apparent. CARDIOVASCULAR: Normal. OSSEOUS STRUCTURES: No significant abnormalities. VISUALIZED UPPER ABDOMEN: Normal. OTHER FINDINGS: None. IMPRESSION: No active disease.
[2017-08-17 13:28] LABS: SQUAMOUS EPITHIAL 11 /hpf (0-5); URINE BACTERIA MOD (<OCC); URINE BILIRUBIN NEGATIVE (NEGATIVE); URINE BLOOD LARGE (NEGATIVE); URINE CALCIUM OXALATE CRYSTALS FEW /hpf (<OCC); URINE CLARITY TURBID (Clear); URINE COLOR AMBER (YELLOW); URINE GLUCOSE (UA) NEG (Normal); URINE LEUKOCYTE ESTERASE LARGE Leu/uL (Negative); URINE PROTEIN 30 mg/dL (NEGATIVE); URINE UROBILINOGEN 0.2-1.0 mg/dL (0.2-1.0); WBC CLUMPS OCC /hpf
[2017-08-17 13:40] LABS: INR 1.2 (0.9-1.2); PROTHROMBIN TIME 12.8 Seconds (9.8-13.1)
[2017-08-17 13:41] LABS: PARTIAL THROMBOPLASTIN TIME 37.2 Seconds (25.6-37.1)
[2017-08-17 13:42] LABS: ALBUMIN 4.1 g/dL (3.5-5.0); ALT/SGPT 36 U/L (9-52); AST/SGOT 24 U/L (14-36); BLOOD UREA NITROGEN 19 mg/dl (7-17); CALCIUM 9.8 mg/dL (8.4-10.2); GFR AFRICAN-AMERICAN > 60; GFR NON-AFRICAN AMERICAN > 60
[2017-08-17] MEDS ORDERED: Morphine 4 MG/ML VIAL IVP ONE (13:44)
[2017-08-17] MEDS ORDERED: Morphine 4 MG/ML VIAL ONE ×2 (13:50→17:19)
[2017-08-17] MEDS ORDERED: Piperacillin/Tazobact 4.5 GM in Sodium Chloride 0.9% 100 ML IV STA (15:31)
[2017-08-17] MEDS ORDERED: metroNIDAZOLE 500mg/100ml NS 100 ML IV STA (15:32)
[2017-08-17] MEDS ORDERED: Ciprofloxacin 400mg/200ml D5W 400 MG/200 ML BAG IV STA (15:33)
[2017-08-17] MEDS ORDERED: metroNIDAZOLE 500mg/100ml NS 100 ML IVPB ONE (15:44)
[2017-08-17] MEDS ORDERED: Ciprofloxacin 400mg/200ml D5W 400 MG/200 ML BAG IVPB ONE (15:44)
[2017-08-17] MEDS ORDERED: Iohexol 300 100 ML IJ ONE (16:19)
[2017-08-17] MEDS ORDERED: Sodium Chloride 0.9% 100 ML ONE (16:20)
--- NOTE | 2017-08-17 16:24 | US ---
HISTORY: Rule out abscess: lower abdominal surgical wound pain COMPARISON: No relevant prior studies available comparison made with prior CT scan of the abdomen and pelvis dated 08/13/2017 TECHNIQUE: Sonographic evaluation of the subcutaneous tissues mid lower pelvis region. . Note that study somewhat limited due to bandages /tape strips overlying the incision. FINDINGS: The current study reveals appears represent some mild edematous changes in the subcutaneous tissues however no significant drainable fluid collections are identified. IMPRESSION: Limited study due to in bandages/strips overlying the incision . Infiltration changes in the subcutaneous tissues subjacent to an incision mid pelvis region. No significant drainable fluid collections are identified within the subcutaneous tissues.
[2017-08-17] MEDS ORDERED: Sodium Chloride 0.9% 1,000 ML IV STA (17:17)
[2017-08-17] MEDS ORDERED: Morphine 4 MG/ML VIAL IV ONE (17:17)
--- NOTE | 2017-08-17 17:39 | CT ---
PROCEDURE: CT abdomen pelvis dated 08/17/2017 HISTORY: Abdominal pain. Abscess. COMPARISON: Comparison made with prior study dated 08/13/2017 TECHNIQUE: Contiguous helical/transaxial images of the abdomen and pelvis performed following oral and intravenous injection of approximately 90 cc Omnipaque 300 contrast material. Given. Coronal and Sagittal reformats generated. Radiation dose: Total exam DLP = This CT exam was performed using one or more of the following dose reduction techniques: Automated exposure control, adjustment of the mA and/or kV according to patient size, and/or use of iterative reconstruction technique. FINDINGS: LOWER THORAX: Mild passive/dependent type atelectasis both posterior lower lung zones left greater than right. No effusion or basilar pneumothorax. Small hiatal hernia with slight wall thickening of the distal esophagus likely due to protrusion of gastric mucosa. Possibility of esophagitis not excluded. The heart size is within range of normal. No significant pericardial effusion. LIVER: The liver is enlarged measuring over 24 cm in CC dimension. Minimal fatty hepatic infiltration. No obvious hepatic mass collection or calcification. Portal and splenic veins are opacified GALLBLADDER AND BILE DUCTS: The gallbladder is all physiologically distended. No evidence of intraluminal gallbladder calculi. PANCREAS: Unremarkable. No mass. No ductal dilatation. SPLEEN: Unremarkable. No splenomegaly. ADRENALS: Unremarkable. KIDNEYS AND URETERS: Kidneys demonstrate symmetric nephrograms. No evidence of nephrolithiasis or hydronephrosis. BLADDER: Urinary bladder is incompletely distended which may account for slight thick-walled appearance. Cystitis not excluded. No intraluminal urinary bladder calculi. REPRODUCTIVE: Status post hysterectomy with residual postoperative changes of elliptical shaped persistent fluid collection within the pelvis that measures approximately 6.1 x 2.6 cm. Bubbles of air and apparent proteinaceous contents with Hounsfield units ranging in the mid to 20s to low 30s. Note that . Concomitant granulation tissue within this area may be present as well. . This collection is difficult to separate and distinguish adjacent ovaries which are presumed to be present however clinical correlation with surgical history APPENDIX: Appendix contains some residual contrast material likely related to CT scan abdomen pelvis with contrast on 08/13/2017. Normal appendix. BOWEL: Evaluation of the bowel is limited due to the lack of oral contrast. Stomach is incompletely distended which presumably accounts for thick-walled appearance. Visualized loops small bowel exhibit normal contour and caliber. No evidence acute mechanical small bowel obstruction. Stool and air seen throughout the large bowel. No definitive evidence of abnormal mural wall thickening. PERITONEUM: Other than air within the aforementioned pelvic collection common no gross free intraperitoneal air. Minor residual postoperative changes involving the lower anterior abdominal wall subcutaneous tissues with a small residual bubble of air remaining. LYMPH NODES: Unremarkable. No enlarged lymph nodes. VASCULATURE: Unremarkable. No aortic aneurysm. BONES: Re- demonstrated is an less than grade 1 spondylolisthesis due to bilateral spondylolysis L5-S1 level. OTHER FINDINGS: None. IMPRESSION: There is a small 6 cm x 2.6 cm proteinaceous appearing collection in the pelvis that contains bubbles of air. . This collection is difficult to distinguish and separate from adjacent ovarian tissue which are presumed to be present however clinical correlation with surgical history is recommended. Hepatomegaly. See above discussion for additional details and findings.
--- NOTE | 2017-08-17 18:42 | CP.PCM.HP ---
<Walt Wood - Last Filed: 08/17/17 19:39> History of Present Illness - History of Present Illness History of Present Illness: 36 y/o F S/P hysterectomy on 08/06/17 presented to ED c/o severe pelvic pain. Pain is described as sharp, localized to surgical wound, constant, aggrvated 3 days ago and associated with bloody white discharge from surgical incision. Pt came to ED on 08/12/17 with this pelvic pain, pt was discharged with Macrobid x 5 days and Tramadol. Pt also reports intermittent chills, night sweats, dysuria and diarrhea since 3 days ago. Pt also reported some vaginal brownish fetid discharge. Pt denies headache, dizziness, CP, SOB, nausea or urinary complaints. NKDA PMD: [facility] PMHx: DM, HTN, Anemia. PSHx: 2x C-Sections FHx: NC SHx: denies tobacco, alcohol or rec drugs. ER Course: --CBC showed elevated WBC, 13.5, and high neutrophil count 76.3 --Urinalysis remarkable with RBCs and large leuko esterase. --CT Abdomen/Pelvis showed a small 6x2.6 cm proteinaceous collection in pelvis that contains bubbles of air. See full report. --CXR normal. --Metronidazole and Ciprofloxacin administered. Present on Admission - Present on Admission Any Indicators Present on Admission: No Review of Systems - Constitutional Constitutional: Chills, Night Sweats - EENT Eyes: absent: Blurred Vision Ears: absent: Ear Discharge - Cardiovascular Cardiovascular: absent: Chest Pain, Dyspnea on Exertion, Edema, Irregular Heart Rhythm - Respiratory Respiratory: absent: Cough, Dyspnea - Gastrointestinal Gastrointestinal: Diarrhea. absent: Heartburn, Hematemesis, Nausea, Vomiting - Genitourinary Genitourinary: Dysuria, Urinary Frequency. absent: Hematuria - Reproductive: Female Reproductive:Female: Vaginal Discharge, Vaginal Odor Past Patient History - Infectious Disease Hx of Infectious Diseases: None - Past Medical History & Family History Past Medical History?: Yes - Past Social History Smoking Status: Never Smoked - CARDIAC Hx Hypertension: Yes - PULMONARY Hx Respiratory Disorders: No - NEUROLOGICAL Hx Migraine: Yes - HEENT Hx HEENT Problems: No - RENAL Hx Chronic Kidney Disease: No - ENDOCRINE/METABOLIC Hx Endocrine Disorders: Yes Hx Diabetes Mellitus Type 2: Yes - HEMATOLOGICAL/ONCOLOGICAL Hx Anemia: Yes (transfused 2 units) - INTEGUMENTARY Hx Dermatological Problems: No - MUSCULOSKELETAL/RHEUMATOLOGICAL Hx Musculoskeletal Disorders: No Hx Falls: No - GASTROINTESTINAL Hx Gastrointestinal Disorders: No - GENITOURINARY/GYNECOLOGICAL Hx Genitourinary Disorders: Yes Other/Comment: fibroids - PSYCHIATRIC Hx Anxiety: Yes Hx Depression: Yes - SURGICAL HISTORY Hx Surgeries: Yes Hx Section: Yes (x2) Hx Hysterectomy: Yes - ANESTHESIA Hx Anesthesia: Yes Hx Anesthesia Reactions: No Hx Malignant Hyperthermia: No Meds Allergies/Adverse Reactions: Allergies Allergy/AdvReac Type Severity Reaction Status Date / Time No Known Allergies Allergy Verified 03/20/17 20:13 Physical Exam - Constitutional Appears: Well, No Acute Distress - Head Exam Head Exam: ATRAUMATIC, NORMAL INSPECTION - Eye Exam Eye Exam: EOMI, Normal appearance - ENT Exam ENT Exam: Normal Exam - Neck Exam Neck exam: Positive for: Full Rom, Normal Inspection - Respiratory Exam Respiratory Exam: Clear to Auscultation Bilateral, NORMAL BREATHING PATTERN - Cardiovascular Exam Cardiovascular Exam: REGULAR RHYTHM - GI/Abdominal Exam GI & Abdominal Exam: Normal Bowel Sounds, Soft, Tenderness (RLQ) Additional comments: Presence of abundant yellowish discharge over surgical incision. Small opening, ~2cm, in surgical incision on Right edge. - Extremities Exam Extremities exam: Positive for: full ROM, normal inspection. Negative for: tenderness Results - Vital Signs Recent Vital Signs: Last Vital Signs Temp 98 F 08/17/17 12:46 Pulse 90 08/17/17 12:46 Resp 18 08/17/17 12:46 BP 120/82 08/17/17 12:46 Pulse Ox 100 08/17/17 15:41 - Labs Result Diagrams: 08/17/17 13:00 08/17/17 13:00 Labs: Laboratory Results - last 24 hr 08/17/17 08/17/17 08/17/17 12:45 13:00 13:00 WBC 13.5 H RBC 4.75 Hgb 10.3 L Hct 32.7 L MCV 68.9 L MCH 21.7 L MCHC 31.5 L RDW 23.1 H Plt Count 400 MPV 9.3 Neut % (Auto) 76.1 H Lymph % (Auto) 15.7 L [place] % (Auto) 6.3 Eos % (Auto) 1.5 Baso % (Auto) 0.4 Neut # (Auto) 10.2 H Lymph # (Auto) 2.1 [place] # (Auto) 0.8 Eos # (Auto) 0.2 Baso # (Auto) 0.1 PT INR APTT pO2 17 L VBG pH 7.38 VBG pCO2 46 VBG HCO3 24.6 VBG Total CO2 28.6 H VBG O2 Sat (Calc) 25.1 L VBG Base Excess 1.6 VBG Potassium 4.6 Sodium 139.0 145 Chloride 108.0 H 104 Glucose 90 Lactate 2.2 H FiO2 21.0 Potassium 4.1 Carbon Dioxide 25 Anion Gap 20 BUN 19 H Creatinine 0.7 Est GFR ( Amer) > 60 Est GFR (Non-Af Amer) > 60 Random Glucose 90 Calcium 9.8 Phosphorus 3.7 Magnesium 2.0 Total Bilirubin 0.5 AST 24 ALT 36 Alkaline Phosphatase 97 Troponin I < 0.0120 Total Protein 8.1 Albumin 4.1 Globulin 4.0 H Albumin/Globulin Ratio 1.0 Venous Blood Potassium 4.6 Urine Color Urine Clarity Urine pH Ur Specific [place] Urine Protein Urine Glucose (UA) Urine Ketones Urine Blood Urine Nitrate Urine Bilirubin Urine Urobilinogen Ur Leukocyte Esterase Urine RBC (Auto) Urine WBC Clumps (Auto) Urine Microscopic WBC Ur Squamous Epith Cells Calcium Oxalate Crystal Urine Bacteria 08/17/17 08/17/17 13:00 13:00 WBC RBC Hgb Hct MCV MCH MCHC RDW Plt Count MPV Neut % (Auto) Lymph % (Auto) [place] % (Auto) Eos % (Auto) Baso % (Auto) Neut # (Auto) Lymph # (Auto) [place] # (Auto) Eos # (Auto) Baso # (Auto) PT 12.8 INR 1.2 APTT 37.2 H pO2 VBG pH VBG pCO2 VBG HCO3 VBG Total CO2 VBG O2 Sat (Calc) VBG Base Excess VBG Potassium Sodium Chloride Glucose Lactate FiO2 Potassium Carbon Dioxide Anion Gap BUN Creatinine Est GFR ( Amer) Est GFR (Non-Af Amer) Random Glucose Calcium Phosphorus Magnesium Total Bilirubin AST ALT Alkaline Phosphatase Troponin I Total Protein Albumin Globulin Albumin/Globulin Ratio Venous Blood Potassium Urine Color [place] Urine Clarity Turbid Urine pH 5.0 Ur Specific [place] 1.023 Urine Protein 30 Urine Glucose (UA) Neg Urine Ketones Negative Urine Blood Large Urine Nitrate Negative Urine Bilirubin Negative Urine Urobilinogen 0.2-1.0 Ur Leukocyte Esterase Large Urine RBC (Auto) 131 H Urine WBC Clumps (Auto) Occ H Urine Microscopic WBC 1009 H Ur Squamous Epith Cells 11 H Calcium Oxalate Crystal Few H Urine Bacteria Mod H Assessment & Plan - Assessment and Plan (Free Text) Assessment: 36 y/o F s/p hysterectomy, recent evaluated for UTI, fetid vaginal discharge and surgical wound dehiscence. --CT Abdomen/Pelvis showed a small 6x2.6 cm proteinaceous collection in pelvis that contains bubbles of air. See full report. Plan: # Pelvic Fluid collection -Possibly pelvic abscess, rule-out sepsis from infection in genitourinary origin or surgical incision. -WBC mildly elevated -Will begin empiric antibiotic: Ampicillin, Gentamycin and Clindamycin. -F/U CBC, CMP. -Will re-evaluate tomorrow. Case discussed with Dr Molina, OB hospitalist sales relationship manager. - Date & Time Date: 08/17/17 Time: 19:35 <Andrei Molina - Last Filed: 08/17/17 22:53> Results - Vital Signs Recent Vital Signs: Last Vital Signs Temp 98.5 F 08/17/17 20:13 Pulse 94 H 08/17/17 20:13 Resp 18 08/17/17 20:13 BP 130/87 08/17/17 20:13 Pulse Ox 99 08/17/17 20:13 - Labs Result Diagrams: 08/17/17 13:00 08/17/17 13:00 Labs: Laboratory Results - last 24 hr 08/17/17 08/17/17 08/17/17 12:45 13:00 13:00 WBC 13.5 H RBC 4.75 Hgb 10.3 L Hct 32.7 L MCV 68.9 L MCH 21.7 L MCHC 31.5 L RDW 23.1 H Plt Count 400 MPV 9.3 Neut % (Auto) 76.1 H Lymph % (Auto) 15.7 L [place] % (Auto) 6.3 Eos % (Auto) 1.5 Baso % (Auto) 0.4 Neut # (Auto) 10.2 H Lymph # (Auto) 2.1 [place] # (Auto) 0.8 Eos # (Auto) 0.2 Baso # (Auto) 0.1 PT INR APTT pO2 17 L VBG pH 7.38 VBG pCO2 46 VBG HCO3 24.6 VBG Total CO2 28.6 H VBG O2 Sat (Calc) 25.1 L VBG Base Excess 1.6 VBG Potassium 4.6 Sodium 139.0 145 Chloride 108.0 H 104 Glucose 90 Lactate 2.2 H FiO2 21.0 Potassium 4.1 Carbon Dioxide 25 Anion Gap 20 BUN 19 H Creatinine 0.7 Est GFR ( Amer) > 60 Est GFR (Non-Af Amer) > 60 Random Glucose 90 Calcium 9.8 Phosphorus 3.7 Magnesium 2.0 Total Bilirubin 0.5 AST 24 ALT 36 Alkaline Phosphatase 97 Troponin I < 0.0120 Total Protein 8.1 Albumin 4.1 Globulin 4.0 H Albumin/Globulin Ratio 1.0 Venous Blood Potassium 4.6 Urine Color Urine Clarity Urine pH Ur Specific [place] Urine Protein Urine Glucose (UA) Urine Ketones Urine Blood Urine Nitrate Urine Bilirubin Urine Urobilinogen Ur Leukocyte Esterase Urine RBC (Auto) Urine WBC Clumps (Auto) Urine Microscopic WBC Ur Squamous Epith Cells Calcium Oxalate Crystal Urine Bacteria 08/17/17 08/17/17 08/17/17 13:00 13:00 20:14 WBC RBC Hgb Hct MCV MCH MCHC RDW Plt Count MPV Neut % (Auto) Lymph % (Auto) [place] % (Auto) Eos % (Auto) Baso % (Auto) Neut # (Auto) Lymph # (Auto) [place] # (Auto) Eos # (Auto) Baso # (Auto) PT 12.8 INR 1.2 APTT 37.2 H pO2 30 VBG pH 7.40 VBG pCO2 43 VBG HCO3 25.0 VBG Total CO2 27.9 VBG O2 Sat (Calc) 63.1 VBG Base Excess 1.5 VBG Potassium 3.9 Sodium 140.0 Chloride 111.0 H Glucose 90 Lactate 1.4 FiO2 21.0 Potassium Carbon Dioxide Anion Gap BUN Creatinine Est GFR ( Amer) Est GFR (Non-Af Amer) Random Glucose Calcium Phosphorus Magnesium Total Bilirubin AST ALT Alkaline Phosphatase Troponin I Total Protein Albumin Globulin Albumin/Globulin Ratio Venous Blood Potassium 3.9 Urine Color [place] Urine Clarity Turbid Urine pH 5.0 Ur Specific [place] 1.023 Urine Protein 30 Urine Glucose (UA) Neg Urine Ketones Negative Urine Blood Large Urine Nitrate Negative Urine Bilirubin Negative Urine Urobilinogen 0.2-1.0 Ur Leukocyte Esterase Large Urine RBC (Auto) 131 H Urine WBC Clumps (Auto) Occ H Urine Microscopic WBC 1009 H Ur Squamous Epith Cells 11 H Calcium Oxalate Crystal Few H Urine Bacteria Mod H Assessment & Plan - Assessment and Plan (Free Text) Plan: Addendum: I saw and examined patient at presentation. Patient's incision with slight amount of drainage. Area nontender with no erythema or swelling or induration. Abdominal pelvic CT reports fluid collection, patient also mildly elevated white blood cell count. Patient's vital signs stable. Plan to admit patient for IV antibiotics and observation. I discussed plan with patient and all patient questions answered.
[2017-08-17] MEDS ORDERED: Gentamicin 80 mg/2mL Inj. IVPB SCH (19:15)
[2017-08-17 20:23] LABS: VENOUS BLOOD GAS BASE EXCESS 1.5 mmol/L (0.0-2.0); VENOUS BLOOD GAS PCO2 43 mmHg (40-60); VENOUS BLOOD GAS PO2 30 mm/Hg (30-55)
[2017-08-17] MEDS: Oxycodone/Acetaminophen 5/325 mg Tab PO PRN (22:53)
[2017-08-17] MEDS: AMPicillin 1 GM in Sodium Chloride 0.9% 100 ML IVPB SCH (23:10)
[2017-08-18] MEDS: Gentamicin 80mg/50ml NS 80 MG/50 ML BAG IVPB SCH ×3 (02:20→17:49)
[2017-08-18] MEDS: AMPicillin 1 GM in Sodium Chloride 0.9% 100 ML IVPB SCH ×4 (04:06→21:57)
[2017-08-18] MEDS: Oxycodone/Acetaminophen 5/325 mg Tab PO PRN ×4 (04:10→20:12)
[2017-08-18 06:31] LABS: BASO # 0.1 K/uL (0.0-0.2); BASO % 0.5 % (0.0-2.0); EOS # 0.3 K/uL (0.0-0.7); EOS % 2.9 % (0.0-4.0); HEMOGLOBIN 9.3 g/dL (12.0-16.0); LYMPH # 3.1 K/uL (1.0-4.3); LYMPH % 29.1 % (20.0-40.0); MEAN CORPUSCULAR HEMOGLOBIN 21.5 pg (27.0-31.0); MEAN CORPUSCULAR HGB CONC 31.1 g/dL (33.0-37.0); MEAN PLATELET VOLUME 9.4 fl (7.2-11.7); MONO # 0.7 K/uL (0.0-0.8); MONO % 6.5 % (0.0-10.0); NEUT # 6.5 K/uL (1.8-7.0); RBC 4.34 Mil/uL (3.80-5.20); RED CELL DISTRIBUTION WIDTH 22.9 % (11.5-14.5); WHITE BLOOD COUNT 10.6 K/uL (4.8-10.8)
[2017-08-18 06:33] LABS: MEAN CELL VOLUME 69.1 fl (81.0-99.0)
[2017-08-18 06:41] LABS: ALBUMIN 3.5 g/dL (3.5-5.0); ALT/SGPT 29 U/L (9-52); AST/SGOT 29 U/L (14-36); BLOOD UREA NITROGEN 12 mg/dl (7-17); CALCIUM 8.8 mg/dL (8.4-10.2); GFR AFRICAN-AMERICAN > 60; GFR NON-AFRICAN AMERICAN > 60
[2017-08-18] MEDS: Enoxaparin 40 mg Syringe SC SCH (08:50)
[2017-08-18] MEDS ORDERED: Gentamicin 80 mg/2mL Inj. IVPB SCH (09:00)
--- NOTE | 2017-08-18 12:19 | CP.PCM.PN ---
Subjective - Date & Time of Evaluation Date of Evaluation: 08/18/17 Time of Evaluation: 10:10 - Subjective Subjective: Patient was seen and evaluated this morning. NAD, Patient admits improved pain. Denies any diarrhea, fever, SOB, dizziness, chest pain or palpitations. Denies any discharge from incision site this morning, c/o burning urinary pain. Objective - Vital Signs/Intake and Output Vital Signs (last 24 hours): Temp Pulse Resp BP Pulse Ox 98.4 F 74 18 117/78 99 08/18/17 11:49 08/18/17 11:49 08/18/17 11:49 08/18/17 11:49 08/18/17 11:49 - Medications Medications: Current Medications Acetaminophen (Tylenol 325mg Tab) 650 mg PO Q6 PRN PRN Reason: Pain, moderate (4-7) Last Admin: 08/18/17 08:51 Dose: 650 mg Enoxaparin Sodium (Lovenox) 40 mg SC DAILY SHARON PRN Reason: Protocol Last Admin: 08/18/17 08:50 Dose: 40 mg Sodium Chloride (Sodium Chloride 0.9%) 1,000 mls @ 1,000 mls/hr IV .Q1H SHARON Last Admin: 08/17/17 13:07 Dose: 1,000 mls/hr Clindamycin Phosphate 900 mg/ (Sodium Chloride) 106 mls @ 106 mls/hr IVPB Q8 SHARON PRN Reason: Protocol Last Admin: 08/18/17 11:48 Dose: 106 mls/hr Gentamicin Sulfate/Sodium Chloride (Gentamicin 80mg/50ml Ns) 80 mg in 50 mls @ 50 mls/hr IVPB Q8 SHARON Last Admin: 08/18/17 11:49 Dose: 50 mls/hr Ampicillin 1 gm/ Sodium (Chloride) 100 mls @ 100 mls/hr IVPB Q6 SHARON PRN Reason: Protocol Last Admin: 08/18/17 11:49 Dose: 100 mls/hr Oxycodone/Acetaminophen (Percocet 5/325 Mg Tab) 1 tab PO Q6 PRN PRN Reason: Pain, severe (8-10) Stop: 08/20/17 21:31 Last Admin: 08/18/17 11:01 Dose: 1 tab - Labs Labs: 08/18/17 04:49 08/18/17 04:49 PT 12.8 Seconds (9.8-13.1) 08/17/17 13:00 INR 1.2 (0.9-1.2) 08/17/17 13:00 APTT 37.2 Seconds (25.6-37.1) H 08/17/17 13:00 - Constitutional Appears: No Acute Distress - Head Exam Head Exam: ATRAUMATIC - Eye Exam Eye Exam: Normal appearance - ENT Exam ENT Exam: Mucous Membranes Moist - Neck Exam Neck Exam: Normal Inspection - Respiratory Exam Respiratory Exam: Clear to Ausculation Bilateral - Cardiovascular Exam Cardiovascular Exam: REGULAR RHYTHM - GI/Abdominal Exam GI & Abdominal Exam: Soft, Tenderness (Lower abdomen, around incision site, S/P hysterectomy, No incision infection or drainage noted this morning ), Normal Bowel Sounds - Extremities Exam Extremities Exam: Full ROM, Normal Capillary Refill - Back Exam Back Exam: NORMAL INSPECTION - Neurological Exam Neurological Exam: Alert, Awake, Oriented x3 - Psychiatric Exam Psychiatric exam: Normal Affect - Skin Skin Exam: Dry, Intact, Normal Color Assessment and Plan - Assessment and Plan (Free Text) Assessment: A/P: 36 y/o F s/p hysterectomy, recent evaluated for UTI, admitted for Foul smelling vaginal discharge and surgical wound dehiscence. Surgical Wound/Incision dehiscence and drainage, possible abscess - Afebrile - WBC: 10.6 (yesterday 13.5) - CT Abdomen/Pelvis showed a small 6x2.6 cm proteinaceous collection in pelvis that contains bubbles of air - Surgical site was evaluated and cleaned - Continue incision care - Continue pain management - Continue IV abx, patient is on ampicillin, Clinda, Gentamicin, Day 1 - Will reevaluate tomorrow Urine Cx: Gram negative joanna - Afebrile - WBC: 10.6 - UA: Nitrate negative - S/p UTI and Macrobid treatment - Continue empiric Abx DVT PPX - Lovenox 40mg SC daily Case d/w Dr. Aguilar
[2017-08-19] MEDS: Gentamicin 80mg/50ml NS 80 MG/50 ML BAG IVPB SCH ×2 (00:05→09:36)
[2017-08-19] MEDS: Oxycodone/Acetaminophen 5/325 mg Tab PO PRN ×4 (01:29→22:41)
[2017-08-19] MEDS: AMPicillin 1 GM in Sodium Chloride 0.9% 100 ML IVPB SCH (04:27)
[2017-08-19] MEDS ORDERED: Docusate-Senna 50 mg-8.6 mg Tab PO STA (06:53)
[2017-08-19] MEDS: Enoxaparin 40 mg Syringe SC SCH (09:31)
[2017-08-19 10:02] LABS: BASO % 0.5 % (0.0-2.0); EOS # 0.2 K/uL (0.0-0.7); EOS % 2.5 % (0.0-4.0); HEMOGLOBIN 10.1 g/dL (12.0-16.0); LYMPH # 1.7 K/uL (1.0-4.3); MEAN CELL VOLUME 68.1 fl (81.0-99.0); MEAN CORPUSCULAR HEMOGLOBIN 21.8 pg (27.0-31.0); MEAN PLATELET VOLUME 9.4 fl (7.2-11.7); MONO # 0.3 K/uL (0.0-0.8); MONO % 3.6 % (0.0-10.0); NEUT # 5.6 K/uL (1.8-7.0); NEUT % 71.4 % (50.0-75.0); NRBC % 0.1 % (0.0-0.0); RBC 4.63 Mil/uL (3.80-5.20); RED CELL DISTRIBUTION WIDTH 22.6 % (11.5-14.5); WHITE BLOOD COUNT 7.8 K/uL (4.8-10.8)
--- NOTE | 2017-08-19 10:43 | CP.PCM.PN ---
<Ashu Salazar - Last Filed: 08/19/17 10:40> Subjective - Date & Time of Evaluation Date of Evaluation: 08/19/17 Time of Evaluation: 10:00 - Subjective Subjective: Patient seen and examined bedside this morning. There are no acute events overnight, NAD. The patient is laying comfortably in bed. The patient reports pain relieved w/ medication. The patient reports mild vaginal bleed and malodorous discharge. The patient reports drainage from incision yesterday but minimal this morning. The patient reports migraine headache. The patient is tolerating PO, is ambulatory, and had normal bowel movement this morning. Objective - Vital Signs/Intake and Output Vital Signs (last 24 hours): Temp Pulse Resp BP Pulse Ox 98.3 F 80 18 106/71 97 08/19/17 07:58 08/19/17 08:14 08/19/17 07:58 08/19/17 07:58 08/19/17 07:58 - Medications Medications: Current Medications Acetaminophen (Tylenol 325mg Tab) 650 mg PO Q6 PRN PRN Reason: Pain, moderate (4-7) Last Admin: 08/18/17 08:51 Dose: 650 mg Enoxaparin Sodium (Lovenox) 40 mg SC DAILY SHARON PRN Reason: Protocol Last Admin: 08/19/17 09:31 Dose: 40 mg Sodium Chloride (Sodium Chloride 0.9%) 1,000 mls @ 1,000 mls/hr IV .Q1H [facility] Last Admin: 08/17/17 13:07 Dose: 1,000 mls/hr Clindamycin Phosphate 900 mg/ (Sodium Chloride) 106 mls @ 106 mls/hr IVPB Q8 SHARON PRN Reason: Protocol Last Admin: 08/19/17 09:35 Dose: 106 mls/hr Gentamicin Sulfate/Sodium Chloride (Gentamicin 80mg/50ml Ns) 80 mg in 50 mls @ 50 mls/hr IVPB Q8 [facility] Last Admin: 08/19/17 09:36 Dose: 50 mls/hr Ibuprofen (Motrin Tab) 600 mg PO Q6 PRN PRN Reason: Pain, severe (8-10) Oxycodone/Acetaminophen (Percocet 5/325 Mg Tab) 1 tab PO Q4 PRN PRN Reason: Pain, severe (8-10) Stop: 08/21/17 14:24 Last Admin: 08/19/17 09:36 Dose: 1 tab Sennosides (Senokot Tab) 17.2 mg PO HS SHARON - Labs Labs: 08/19/17 09:20 08/18/17 04:49 PT 12.8 Seconds (9.8-13.1) 08/17/17 13:00 INR 1.2 (0.9-1.2) 08/17/17 13:00 APTT 37.2 Seconds (25.6-37.1) H 08/17/17 13:00 - Constitutional Appears: Non-toxic, No Acute Distress - Head Exam Head Exam: ATRAUMATIC, NORMAL INSPECTION, NORMOCEPHALIC - ENT Exam ENT Exam: Mucous Membranes Moist - Neck Exam Neck Exam: Full ROM - GI/Abdominal Exam GI & Abdominal Exam: Soft, Tenderness. absent: Distended Additional comments: 1 cm exposed incision on right lower abdomen, no drainage, no bleeding, no erythema; remainder of incision c/d/i - Extremities Exam Extremities Exam: absent: Calf Tenderness, Pedal Edema, Tenderness - Neurological Exam Neurological Exam: Alert, Awake, Oriented x3 - Skin Skin Exam: Dry, Intact, Normal Color, Warm Assessment and Plan - Assessment and Plan (Free Text) Assessment: 36 y/o woman s/p hysterectomy 08/06/2017, recently evaluated for UTI, fetid vaginal discharge and surgical wound dehiscence Plan: Pelvic fluid collection - afebrile for 48 hours - WBC 7.8 this morning (10.6 yesterday) - blood culture x2 08/17: no growth - urine culture: E. coli - wound culture: gram negative joanna, coagulase negative staphylococcus - minimal drainage this morning - ID consulted, Dr. Vinson - clindamycin 900 mg IV Q8h day 2 - gentamicin 80 mg IV Q8h day 2 - monitor for acute changes Pain management - motrin 600 mg PO Q6h prn - percocet 1 tab PO Q4h prn Prophylactic measures - DVT: lovenox 40 mg SC daily, encourage ambulation - constipation: senokot <Rosalba Monreal M - Last Filed: 08/19/17 16:03> Subjective - Subjective Subjective: Patient reported malodorous vaginal discharge on admission however smell improved today and decreased in amount. Patient also reports continued mild burning with urination however urine color improved and also reports decreased amount of discharge from wound. Objective - Vital Signs/Intake and Output Vital Signs (last 24 hours): Temp Pulse Resp BP Pulse Ox 98.7 F 81 18 103/69 96 08/19/17 12:49 08/19/17 12:49 08/19/17 12:49 08/19/17 12:49 08/19/17 12:49 - Medications Medications: Current Medications Acetaminophen (Tylenol 325mg Tab) 650 mg PO Q6 PRN PRN Reason: Pain, moderate (4-7) Last Admin: 08/18/17 08:51 Dose: 650 mg Enoxaparin Sodium (Lovenox) 40 mg SC DAILY SHARON PRN Reason: Protocol Last Admin: 08/19/17 09:31 Dose: 40 mg Sodium Chloride (Sodium Chloride 0.9%) 1,000 mls @ 1,000 mls/hr IV .Q1H [facility] Last Admin: 08/17/17 13:07 Dose: 1,000 mls/hr Clindamycin Phosphate 900 mg/ (Sodium Chloride) 106 mls @ 106 mls/hr IVPB Q8 SHARON PRN Reason: Protocol Last Admin: 08/19/17 09:35 Dose: 106 mls/hr Meropenem 1 gm/ Sodium (Chloride) 100 mls @ 100 mls/hr IVPB Q8 SHARON PRN Reason: Protocol Ibuprofen (Motrin Tab) 600 mg PO Q6 PRN PRN Reason: Pain, severe (8-10) Oxycodone/Acetaminophen (Percocet 5/325 Mg Tab) 1 tab PO Q4 PRN PRN Reason: Pain, severe (8-10) Stop: 08/21/17 14:24 Last Admin: 08/19/17 15:42 Dose: 1 tab Sennosides (Senokot Tab) 17.2 mg PO HS SHARON - Labs Labs: 08/19/17 09:20 08/18/17 04:49 PT 12.8 Seconds (9.8-13.1) 08/17/17 13:00 INR 1.2 (0.9-1.2) 08/17/17 13:00 APTT 37.2 Seconds (25.6-37.1) H 08/17/17 13:00 Assessment and Plan (1) S/P total abdominal hysterectomy Status: Acute - Assessment and Plan (Free Text) Plan: Plan: Continue pain meds as needed. Will reevaluate patient after ID consult regarding ABx regimen and continued follow up.
--- NOTE | 2017-08-19 12:17 | CARD ---
APPROVED REPORT EKG Measurement Heart [id number] <Conclusion> Normal sinus rhythm Nonspecific ST abnormality Abnormal ECG
--- NOTE | 2017-08-19 13:08 | CP.PCM.CON ---
History of Present Illness - History of Present Illness History of Present Illness: Infectious Disease Consultation Note- HPI- Patient is a pleasant 36 year old female with no pmh except recent diagnosis of DM II and also recent hysterectomy for uterine fibroids who is admitted with c/ o vaginal brown malodorous discharge along with slight pain in the lower abd/ pelvic around surgical site and small opening around the right side of her recent surgical site. Patient states originally she came to ED on 08/12/2017 c/o the vaginal discharge and pelvic pain and was noted to have UTI on UA and was d/c home on macrobid antibiotics and tramadol for pain. Patient states her vaginal discharge did not improve and she also developed diarrhea and also she reports some chills. she denies any dysurea but states bc she was on the pain killer she is not sure if that had masked her dysurea. Now i'm asked to evaluate the patient and help with antibiotic management bc Urine cx esbl e.coli and ct abd/pelvis small proteinaceous collection. pt. currently denies any fever but states she does have some pelvic pain and some mild discharge from the right side of the surgical site. PMHx: DM, HTN, Anemia. PSHx: 2x C-Sections FHx: NC SHx: denies tobacco, alcohol or rec drugs. ER Course: --CBC showed elevated WBC, 13.5, and high neutrophil count 76.3 --Urinalysis remarkable with RBCs and large leuko esterase. --CT Abdomen/Pelvis showed a small 6x2.6 cm proteinaceous collection in pelvis that contains bubbles of air. See full report. --CXR normal. --Metronidazole and Ciprofloxacin administered. Review of Systems - Review of Systems Review of Systems: ROS- denies any fever, + chills at home, denies any STEVENS, denies any cough, denies any sob, denies any chest pain, c/o mild lower abd/pelvic pain around surgical site with minimal yellow discharge from the small opening at the surgical site, + brownish vaginal discharge, no dysurea , states has slight left flank tenderness had nausea but not now, denies any vomiting, + diarrhea for past 2 days but denies any blood in stool. Past Patient History - Infectious Disease Hx of Infectious Diseases: None - Past Medical History & Family History Past Medical History?: Yes - Past Social History Smoking Status: Former Smoker Alcohol: None Drugs: Denies Home Situation {Lives}: With Family - CARDIAC Hx Cardiac Disorders: No - PULMONARY Hx Respiratory Disorders: No - NEUROLOGICAL Hx Neurological Disorder: Yes Hx Migraine: Yes - HEENT Hx HEENT Problems: No - RENAL Hx Chronic Kidney Disease: No - ENDOCRINE/METABOLIC Hx Endocrine Disorders: Yes Hx Diabetes Mellitus Type 2: Yes - HEMATOLOGICAL/ONCOLOGICAL Hx Blood Disorders: Yes Hx Anemia: Yes (transfused 2 units) - INTEGUMENTARY Hx Dermatological Problems: No - MUSCULOSKELETAL/RHEUMATOLOGICAL Hx Musculoskeletal Disorders: No Hx Falls: No - GASTROINTESTINAL Hx Gastrointestinal Disorders: No - GENITOURINARY/GYNECOLOGICAL Hx Genitourinary Disorders: Yes Hx Urinary Tract Infection: Yes Other/Comment: Fibroids, Cysts - PSYCHIATRIC Hx Psychophysiologic Disorder: Yes Hx Anxiety: Yes Hx Depression: Yes Hx Substance Use: No - SURGICAL HISTORY Hx Surgeries: Yes Hx Section: Yes (x2) Hx Hysterectomy: Yes - ANESTHESIA Hx Anesthesia: Yes Hx Anesthesia Reactions: No Hx Malignant Hyperthermia: No Meds Allergies/Adverse Reactions: Allergies Allergy/AdvReac Type Severity Reaction Status Date / Time No Known Allergies Allergy Verified 03/20/17 20:13 - Medications Medications: Current Medications Acetaminophen (Tylenol 325mg Tab) 650 mg PO Q6 PRN PRN Reason: Pain, moderate (4-7) Last Admin: 08/18/17 08:51 Dose: 650 mg Enoxaparin Sodium (Lovenox) 40 mg SC DAILY [facility] PRN Reason: Protocol Last Admin: 08/19/17 09:31 Dose: 40 mg Sodium Chloride (Sodium Chloride 0.9%) 1,000 mls @ 1,000 mls/hr IV .Q1H [facility] Last Admin: 08/17/17 13:07 Dose: 1,000 mls/hr Clindamycin Phosphate 900 mg/ (Sodium Chloride) 106 mls @ 106 mls/hr IVPB Q8 [facility] PRN Reason: Protocol Last Admin: 08/19/17 09:35 Dose: 106 mls/hr Gentamicin Sulfate/Sodium Chloride (Gentamicin 80mg/50ml Ns) 80 mg in 50 mls @ 50 mls/hr IVPB Q8 [facility] Last Admin: 08/19/17 09:36 Dose: 50 mls/hr Ibuprofen (Motrin Tab) 600 mg PO Q6 PRN PRN Reason: Pain, severe (8-10) Oxycodone/Acetaminophen (Percocet 5/325 Mg Tab) 1 tab PO Q4 PRN PRN Reason: Pain, severe (8-10) Stop: 08/21/17 14:24 Last Admin: 08/19/17 09:36 Dose: 1 tab Sennosides (Senokot Tab) 17.2 mg PO HS [facility] Physical Exam - Constitutional Appears: No Acute Distress - Head Exam Head Exam: ATRAUMATIC - Eye Exam Eye Exam: EOMI, PERRL - ENT Exam ENT Exam: Normal Oropharynx - Neck Exam Neck exam: Positive for: Full Rom - Respiratory Exam Respiratory Exam: Clear to Auscultation Bilateral, NORMAL BREATHING PATTERN - Cardiovascular Exam Cardiovascular Exam: RRR, +S1, +S2 - GI/Abdominal Exam GI & Abdominal Exam: Normal Bowel Sounds, Soft Additional comments: lower abd/pelvic surgical site , no erythema , right edge of the surgical site with small opening with scant yellow discharge mild tenderness with palpation around the site and minimal left CVA tenderness no Guarding, no rebound - Extremities Exam Extremities exam: Positive for: normal inspection - Neurological Exam Neurological exam: Alert, Oriented x3 Results - Vital Signs Recent Vital Signs: Last Vital Signs Temp 98.7 F 08/19/17 12:49 Pulse 81 08/19/17 12:49 Resp 18 08/19/17 12:49 BP 103/69 08/19/17 12:49 Pulse Ox 96 08/19/17 12:49 - Labs Result Diagrams: 08/19/17 09:20 08/18/17 04:49 Labs: Laboratory Results - last 24 hr 08/18/17 08/19/17 08/19/17 22:03 05:34 09:20 WBC 7.8 RBC 4.63 Hgb 10.1 L Hct 31.5 L MCV 68.1 L MCH 21.8 L MCHC 32.0 L RDW 22.6 H Plt Count 394 MPV 9.4 Neut % (Auto) 71.4 Lymph % (Auto) 22.0 [place] % (Auto) 3.6 Eos % (Auto) 2.5 Baso % (Auto) 0.5 Neut # (Auto) 5.6 Lymph # (Auto) 1.7 [place] # (Auto) 0.3 Eos # (Auto) 0.2 Baso # (Auto) 0.0 POC Glucose (mg/dL) 85 89 08/19/17 11:29 WBC RBC Hgb Hct MCV MCH MCHC RDW Plt Count MPV Neut % (Auto) Lymph % (Auto) [place] % (Auto) Eos % (Auto) Baso % (Auto) Neut # (Auto) Lymph # (Auto) [place] # (Auto) Eos # (Auto) Baso # (Auto) POC Glucose (mg/dL) 73 Microbiology 08/17/17 12:05 Abdomen Gram Stain - Final 08/17/17 12:05 Abdomen Wound Culture - Preliminary Gram Negative Thee Coagulase Neg Staphylococcus 08/17/17 13:01 Urine,Clean Catch Urine Culture - Final Escherichia Coli 08/17/17 13:15 Blood Blood Culture - Preliminary NO GROWTH AFTER 24 HOURS 08/17/17 13:15 Blood Blood Culture - Preliminary NO GROWTH AFTER 24 HOURS Accession No. : [id number] Patient Name / ID : LAURA NASCIMENTO / [id number] Exam Date : 08/17/2017 16:55:24 ( Approved ) Study Comment : Sex / Age : F / 36Y Creator : Andrei Barahona MD Dictator : Walking Dragline Operator : Core Inspector : Andrei Barahona MD Approver2 : Report Date : 08/17/2017 17:37:50 My Comment : PROCEDURE: CT abdomen pelvis dated 08/17/2017 HISTORY: Abdominal pain. Abscess. COMPARISON: Comparison made with prior study dated 08/13/2017 TECHNIQUE: Contiguous helical/transaxial images of the abdomen and pelvis performed following oral and intravenous injection of approximately 90 cc Omnipaque 300 contrast material. Given. Coronal and Sagittal reformats generated. Radiation dose: Total exam DLP = This CT exam was performed using one or more of the following dose reduction techniques: Automated exposure control, adjustment of the mA and/or kV according to patient size, and/or use of iterative reconstruction technique. FINDINGS: LOWER THORAX: Mild passive/dependent type atelectasis both posterior lower lung zones left greater than right. No effusion or basilar pneumothorax. Small hiatal hernia with slight wall thickening of the distal esophagus likely due to protrusion of gastric mucosa. Possibility of esophagitis not excluded. The heart size is within range of normal. No significant pericardial effusion. LIVER: The liver is enlarged measuring over 24 cm in CC dimension. Minimal fatty hepatic infiltration. No obvious hepatic mass collection or calcification. Portal and splenic veins are opacified GALLBLADDER AND BILE DUCTS: The gallbladder is all physiologically distended. No evidence of intraluminal gallbladder calculi. PANCREAS: Unremarkable. No mass. No ductal dilatation. SPLEEN: Unremarkable. No splenomegaly. ADRENALS: Unremarkable. KIDNEYS AND URETERS: Kidneys demonstrate symmetric nephrograms. No evidence of nephrolithiasis or hydronephrosis. BLADDER: Urinary bladder is incompletely distended which may account for slight thick- walled appearance. Cystitis not excluded. No intraluminal urinary bladder calculi. REPRODUCTIVE: Status post hysterectomy with residual postoperative changes of elliptical shaped persistent fluid collection within the pelvis that measures approximately 6.1 x 2.6 cm. Bubbles of air and apparent proteinaceous contents with Hounsfield units ranging in the mid to 20s to low 30s. Note that . Concomitant granulation tissue within this area may be present as well. . This collection is difficult to separate and distinguish adjacent ovaries which are presumed to be present however clinical correlation with surgical history APPENDIX: Appendix contains some residual contrast material likely related to CT scan abdomen pelvis with contrast on 08/13/2017. Normal appendix. BOWEL: Evaluation of the bowel is limited due to the lack of oral contrast. Stomach is incompletely distended which presumably accounts for thick-walled appearance. Visualized loops small bowel exhibit normal contour and caliber. No evidence acute mechanical small bowel obstruction. Stool and air seen throughout the large bowel. No definitive evidence of abnormal mural wall thickening. PERITONEUM: Other than air within the aforementioned pelvic collection common no gross free intraperitoneal air. Minor residual postoperative changes involving the lower anterior abdominal wall subcutaneous tissues with a small residual bubble of air remaining. LYMPH NODES: Unremarkable. No enlarged lymph nodes. VASCULATURE: Unremarkable. No aortic aneurysm. BONES: Re- demonstrated is an less than grade 1 spondylolisthesis due to bilateral spondylolysis L5-S1 level. OTHER FINDINGS: None. IMPRESSION: There is a small 6 cm x 2.6 cm proteinaceous appearing collection in the pelvis that contains bubbles of air. . This collection is difficult to distinguish and separate from adjacent ovarian tissue which are presumed to be present however clinical correlation with surgical history is recommended. Hepatomegaly. See above discussion for additional details and findings. Accession No. : [id number] Patient Name / ID : LAURA NASCIMENTO / [id number] Exam Date : 08/17/2017 14:57:04 ( Approved ) Study Comment : Sex / Age : F / 36Y Creator : Andrei Barahona MD Dictator : Walking Dragline Operator : Core Inspector : Andrei Barahona MD Approver2 : Report Date : 08/17/2017 16:22:40 My Comment : HISTORY: Rule out abscess: lower abdominal surgical wound pain COMPARISON: No relevant prior studies available comparison made with prior CT scan of the abdomen and pelvis dated 08/13/2017 TECHNIQUE: Sonographic evaluation of the subcutaneous tissues mid lower pelvis region. . Note that study somewhat limited due to bandages /tape strips overlying the incision. FINDINGS: The current study reveals appears represent some mild edematous changes in the subcutaneous tissues however no significant drainable fluid collections are identified. IMPRESSION: Limited study due to in bandages/strips overlying the incision . Infiltration changes in the subcutaneous tissues subjacent to an incision mid pelvis region. No significant drainable fluid collections are identified within the subcutaneous tissues. Assessment & Plan (1) UTI (urinary tract infection) Status: Acute (2) Wound abscess Status: Acute (3) S/P total abdominal hysterectomy Status: Acute - Assessment and Plan (Free Text) Assessment: A/P- 36 year old female s/p hysterectomy admitted with surgical site pain and vaginal discharge and small opening at surgical site with scant drainage and leukocytosis. found to have ESBL e.coli UTI and sbased on UA result could be mixed with the vaginal discharge as well. blood cx- neg x 3 CT abd/pelvic report noted. wound cx- prelim GNR and coag neg staph leukocytosis has resolved. afebrile plan- d/c gentamicin that was started by primary team. advise to start pt. on IV meropenem which could treat the ESBL e.coli and has broad gram neg and anaerobic coverage for pelvic pathogens as well. no objection to continuing with clindamycin that was started by the primary team pending further result. await final ID and sensitivity of the wound cx result. all above d/w patient and she verbalizes full understanding of all above. Thank you for allowing me to take part in the care of this patient,
[2017-08-19] MEDS: Lactobacillus Acidophilus 500 MU Cap PO SCH (17:45)
[2017-08-19] MEDS: Meropenem 1 GM in Sodium Chloride 0.9% 100 ML IVPB SCH (17:45)
[2017-08-20] MEDS: Meropenem 1 GM in Sodium Chloride 0.9% 100 ML IVPB SCH ×3 (00:43→16:26)
--- NOTE | 2017-08-20 07:55 | CP.PCM.PN ---
Subjective - Date & Time of Evaluation Date of Evaluation: 08/20/17 Time of Evaluation: 07:30 - Subjective Subjective: Patient seen and examined bedside this morning. Patient in contact isolation due to ESBL E.coli in urine. There are no acute events overnight, NAD. The patient is laying comfortably in bed. The patient reports pain relieved w/ medication. The patient reports mild vaginal bleed and malodorous discharge. The patient denies drainage from incision this morning. The patient is tolerating PO and ambulatory. Objective - Vital Signs/Intake and Output Vital Signs (last 24 hours): Temp Pulse Resp BP Pulse Ox 98.2 F 69 18 106/71 100 08/20/17 05:13 08/20/17 05:13 08/20/17 05:13 08/20/17 05:13 08/20/17 05:13 - Medications Medications: Current Medications Acetaminophen (Tylenol 325mg Tab) 650 mg PO Q6 PRN PRN Reason: Pain, moderate (4-7) Last Admin: 08/18/17 08:51 Dose: 650 mg Enoxaparin Sodium (Lovenox) 40 mg SC DAILY [facility] PRN Reason: Protocol Last Admin: 08/19/17 09:31 Dose: 40 mg Sodium Chloride (Sodium Chloride 0.9%) 1,000 mls @ 1,000 mls/hr IV .Q1H [facility] Last Admin: 08/17/17 13:07 Dose: 1,000 mls/hr Clindamycin Phosphate 900 mg/ (Sodium Chloride) 106 mls @ 106 mls/hr IVPB Q8 [facility] PRN Reason: Protocol Last Admin: 08/20/17 00:36 Dose: 106 mls/hr Meropenem 1 gm/ Sodium (Chloride) 100 mls @ 100 mls/hr IVPB Q8 [facility] PRN Reason: Protocol Last Admin: 08/20/17 00:43 Dose: 100 mls/hr Ibuprofen (Motrin Tab) 600 mg PO Q6 PRN PRN Reason: Pain, severe (8-10) Lactobacillus Acidophilus (Bacid Acidophilus) 1 cap PO BID [facility] Last Admin: 08/19/17 17:45 Dose: 1 cap Oxycodone/Acetaminophen (Percocet 5/325 Mg Tab) 1 tab PO Q4 PRN PRN Reason: Pain, severe (8-10) Stop: 08/21/17 14:24 Last Admin: 08/19/17 22:41 Dose: 1 tab Sennosides (Senokot Tab) 17.2 mg PO HS [facility] Last Admin: 08/19/17 22:41 Dose: 17.2 mg Sertraline HCl (Zoloft) 100 mg PO DAILY [facility] - Labs Labs: 08/19/17 09:20 08/18/17 04:49 PT 12.8 Seconds (9.8-13.1) 08/17/17 13:00 INR 1.2 (0.9-1.2) 08/17/17 13:00 APTT 37.2 Seconds (25.6-37.1) H 08/17/17 13:00 - Constitutional Appears: Non-toxic, No Acute Distress - Head Exam Head Exam: ATRAUMATIC, NORMAL INSPECTION, NORMOCEPHALIC - Eye Exam Eye Exam: Normal appearance - ENT Exam ENT Exam: Mucous Membranes Moist - Neck Exam Neck Exam: Full ROM. absent: Tenderness - Respiratory Exam Respiratory Exam: Clear to Ausculation Bilateral, NORMAL BREATHING PATTERN. absent: Decreased Breath Sounds, Rales, Rhonchi, Wheezes, Respiratory Distress - Cardiovascular Exam Cardiovascular Exam: REGULAR RHYTHM, RRR. absent: Tachycardia - GI/Abdominal Exam GI & Abdominal Exam: Soft, Tenderness, Normal Bowel Sounds. absent: Distended Additional comments: 1 cm exposed incision on right lower abdomen, no drainage, no bleeding, no erythema; remainder of incision c/d/i - Extremities Exam Extremities Exam: Normal Inspection. absent: Calf Tenderness, Pedal Edema, Tenderness - Neurological Exam Neurological Exam: Alert, Awake, Oriented x3 - Skin Skin Exam: Dry, Intact, Normal Color, Warm Assessment and Plan - Assessment and Plan (Free Text) Assessment: 36 y/o woman s/p hysterectomy 08/06/2017, recently evaluated for UTI, fetid vaginal discharge and surgical wound dehiscence Plan: Pelvic fluid collection - afebrile for 72 hours - WBC 08/19/2017: 7.8 - blood culture x2 08/17: no growth - urine culture: ESBL E. coli - wound culture: gram negative joanna, coagulase negative staphylococcus - minimal drainage this morning - ID consulted, Dr. Vinson, recommendations appreciated - started on meropenem 1 gm IV Q8h day 1 - clindamycin 900 mg IV Q8h day 3 - DC'ed gentamicin 80 mg IV Q8h day 2 - monitor for acute changes Pain management - motrin 600 mg PO Q6h prn - percocet 1 tab PO Q4h prn Prophylactic measures - DVT: lovenox 40 mg SC daily, encourage ambulation - constipation: senokot dispo: transfer to [facility]
[2017-08-20] MEDS: Lactobacillus Acidophilus 500 MU Cap PO SCH ×2 (08:50→16:26)
[2017-08-20] MEDS: Enoxaparin 40 mg Syringe SC SCH (08:51)
--- NOTE | 2017-08-20 11:54 | CP.PCM.PN ---
Subjective - Date & Time of Evaluation Date of Evaluation: 08/20/17 Time of Evaluation: 19:00 - Subjective Subjective: ID Note- Pt. seen and examined today. Pt. denies any fever or chills. she states she has not seen any further discharge from her surgical site but states she still has the vaginal discharge but less malodorous. Objective - Vital Signs/Intake and Output Vital Signs (last 24 hours): Temp Pulse Resp BP Pulse Ox 98.4 F 63 20 103/70 96 08/20/17 08:00 08/20/17 09:00 08/20/17 08:00 08/20/17 08:00 08/20/17 08:00 - Medications Medications: Current Medications Acetaminophen (Tylenol 325mg Tab) 650 mg PO Q6 PRN PRN Reason: Pain, moderate (4-7) Last Admin: 08/20/17 10:27 Dose: 650 mg Enoxaparin Sodium (Lovenox) 40 mg SC DAILY [facility] PRN Reason: Protocol Last Admin: 08/20/17 08:51 Dose: 40 mg Sodium Chloride (Sodium Chloride 0.9%) 1,000 mls @ 1,000 mls/hr IV .Q1H [facility] Last Admin: 08/17/17 13:07 Dose: 1,000 mls/hr Clindamycin Phosphate 900 mg/ (Sodium Chloride) 106 mls @ 106 mls/hr IVPB Q8 [facility] PRN Reason: Protocol Last Admin: 08/20/17 10:03 Dose: 106 mls/hr Meropenem 1 gm/ Sodium (Chloride) 100 mls @ 100 mls/hr IVPB Q8 [facility] PRN Reason: Protocol Last Admin: 08/20/17 08:50 Dose: 100 mls/hr Ibuprofen (Motrin Tab) 600 mg PO Q6 PRN PRN Reason: Pain, severe (8-10) Lactobacillus Acidophilus (Bacid Acidophilus) 1 cap PO BID [facility] Last Admin: 08/20/17 08:50 Dose: 1 cap Oxycodone/Acetaminophen (Percocet 5/325 Mg Tab) 1 tab PO Q4 PRN PRN Reason: Pain, severe (8-10) Stop: 08/21/17 14:24 Last Admin: 08/19/17 22:41 Dose: 1 tab Sennosides (Senokot Tab) 17.2 mg PO HS [facility] Last Admin: 08/19/17 22:41 Dose: 17.2 mg Sertraline HCl (Zoloft) 100 mg PO DAILY [facility] Last Admin: 08/20/17 10:28 Dose: 100 mg - Labs Labs: - Additional Findings Additional findings: - Constitutional Appears: No Acute Distress - Head Exam Head Exam: ATRAUMATIC - Eye Exam Eye Exam: EOMI, PERRL - ENT Exam ENT Exam: Normal Oropharynx - Neck Exam Neck exam: Positive for: Full Rom - Respiratory Exam Respiratory Exam: Clear to Auscultation Bilateral, NORMAL BREATHING PATTERN - Cardiovascular Exam Cardiovascular Exam: RRR, +S1, +S2 - GI/Abdominal Exam GI & Abdominal Exam: Normal Bowel Sounds, Soft Additional comments: lower abd/pelvic surgical site , no erythema , right edge of the surgical site with small opening , however, no discharge today mild tenderness with palpation around the site on;ly but less than before no Guarding, no rebound - Extremities Exam Extremities exam: Positive for: normal inspection - Neurological Exam Neurological exam: Alert, Oriented x 3 Laboratory Results - last 72 hr 08/17/17 08/18/17 08/18/17 20:14 04:49 04:49 WBC 10.6 RBC 4.34 Hgb 9.3 L Hct 30.0 L MCV 69.1 L MCH 21.5 L MCHC 31.1 L RDW 22.9 H Plt Count 373 MPV 9.4 Neut % (Auto) 61.0 Lymph % (Auto) 29.1 [place] % (Auto) 6.5 Eos % (Auto) 2.9 Baso % (Auto) 0.5 Neut # (Auto) 6.5 Lymph # (Auto) 3.1 [place] # (Auto) 0.7 Eos # (Auto) 0.3 Baso # (Auto) 0.1 pO2 30 VBG pH 7.40 VBG pCO2 43 VBG HCO3 25.0 VBG Total CO2 27.9 VBG O2 Sat (Calc) 63.1 VBG Base Excess 1.5 VBG Potassium 3.9 Sodium 140.0 143 Chloride 111.0 H 106 Glucose 90 Lactate 1.4 FiO2 21.0 Potassium 4.2 Carbon Dioxide 26 Anion Gap 15 BUN 12 Creatinine 0.7 Est GFR ( Amer) > 60 Est GFR (Non-Af Amer) > 60 POC Glucose (mg/dL) Random Glucose 91 Calcium 8.8 Total Bilirubin 0.4 AST 29 ALT 29 Alkaline Phosphatase 82 Total Protein 7.0 Albumin 3.5 Globulin 3.5 Albumin/Globulin Ratio 1.0 Venous Blood Potassium 3.9 08/18/17 08/19/17 08/19/17 22:03 05:34 09:20 WBC 7.8 RBC 4.63 Hgb 10.1 L Hct 31.5 L MCV 68.1 L MCH 21.8 L MCHC 32.0 L RDW 22.6 H Plt Count 394 MPV 9.4 Neut % (Auto) 71.4 Lymph % (Auto) 22.0 [place] % (Auto) 3.6 Eos % (Auto) 2.5 Baso % (Auto) 0.5 Neut # (Auto) 5.6 Lymph # (Auto) 1.7 [place] # (Auto) 0.3 Eos # (Auto) 0.2 Baso # (Auto) 0.0 pO2 VBG pH VBG pCO2 VBG HCO3 VBG Total CO2 VBG O2 Sat (Calc) VBG Base Excess VBG Potassium Sodium Chloride Glucose Lactate FiO2 Potassium Carbon Dioxide Anion Gap BUN Creatinine Est GFR ( Amer) Est GFR (Non-Af Amer) POC Glucose (mg/dL) 85 89 Random Glucose Calcium Total Bilirubin AST ALT Alkaline Phosphatase Total Protein Albumin Globulin Albumin/Globulin Ratio Venous Blood Potassium 08/19/17 08/19/17 08/19/17 11:29 18:16 21:28 WBC RBC Hgb Hct MCV MCH MCHC RDW Plt Count MPV Neut % (Auto) Lymph % (Auto) [place] % (Auto) Eos % (Auto) Baso % (Auto) Neut # (Auto) Lymph # (Auto) [place] # (Auto) Eos # (Auto) Baso # (Auto) pO2 VBG pH VBG pCO2 VBG HCO3 VBG Total CO2 VBG O2 Sat (Calc) VBG Base Excess VBG Potassium Sodium Chloride Glucose Lactate FiO2 Potassium Carbon Dioxide Anion Gap BUN Creatinine Est GFR ( Amer) Est GFR (Non-Af Amer) POC Glucose (mg/dL) 73 126 H 87 Random Glucose Calcium Total Bilirubin AST ALT Alkaline Phosphatase Total Protein Albumin Globulin Albumin/Globulin Ratio Venous Blood Potassium 08/20/17 08/20/17 08/20/17 05:26 11:48 15:35 WBC RBC Hgb Hct MCV MCH MCHC RDW Plt Count MPV Neut % (Auto) Lymph % (Auto) [place] % (Auto) Eos % (Auto) Baso % (Auto) Neut # (Auto) Lymph # (Auto) [place] # (Auto) Eos # (Auto) Baso # (Auto) pO2 VBG pH VBG pCO2 VBG HCO3 VBG Total CO2 VBG O2 Sat (Calc) VBG Base Excess VBG Potassium Sodium Chloride Glucose Lactate FiO2 Potassium Carbon Dioxide Anion Gap BUN Creatinine Est GFR ( Amer) Est GFR (Non-Af Amer) POC Glucose (mg/dL) 90 88 77 Random Glucose Calcium Total Bilirubin AST ALT Alkaline Phosphatase Total Protein Albumin Globulin Albumin/Globulin Ratio Venous Blood Potassium Microbiology 08/17/17 13:15 Blood Blood Culture - Preliminary NO GROWTH AFTER 3 DAYS 08/17/17 13:15 Blood Blood Culture - Preliminary NO GROWTH AFTER 3 DAYS 08/17/17 12:05 Abdomen Gram Stain - Final 08/17/17 12:05 Abdomen Wound Culture - Final Enterobacter Cloacae Ssp Cloac Coagulase Neg Staphylococcus 08/17/17 13:01 Urine,Clean Catch Urine Culture - Final Escherichia Coli Assessment and Plan (1) UTI (urinary tract infection) Status: Acute (2) Wound abscess Status: Acute (3) S/P total abdominal hysterectomy Status: Acute - Assessment and Plan (Free Text) Assessment: A/P- 36 year old female s/p hysterectomy admitted with surgical site pain and vaginal discharge and small opening at surgical site with scant drainage and leukocytosis. found to have ESBL e.coli UTI blood cx- neg x 3 CT abd/pelvic report noted. wound cx-enterobacter and coag neg staph leukocytosis has resolved. afebrile plan- advise to continue with IV meropenem which could treat the ESBL e.coli and cover the enterobacter cloacae in wound cx. day #2. would advise to otal of 7 days of IV meropnem for the ESBL e.coli treatment. check repeat UA in 1-2 days. d/c IV clindamycin. can start po bactrim for the coag neg staph. all above d/w patient and she verbalizes full understanding of all above and agrees with above plan of care.
[2017-08-20] MEDS: Oxycodone/Acetaminophen 5/325 mg Tab PO PRN (19:50)
[2017-08-20] MEDS: Tmp-Smz 800 mg-160 mg DS Tab PO SCH (21:11)
[2017-08-21] MEDS: Meropenem 1 GM in Sodium Chloride 0.9% 100 ML IVPB SCH ×3 (00:43→18:03)
[2017-08-21] MEDS: Oxycodone/Acetaminophen 5/325 mg Tab PO PRN ×2 (00:53→09:50)
--- NOTE | 2017-08-21 07:47 | CP.PCM.PN ---
Subjective - Date & Time of Evaluation Date of Evaluation: 08/21/17 Time of Evaluation: 07:30 - Subjective Subjective: Patient seen and examined bedside this morning. Patient in contact isolation due to ESBL E.coli in urine. There are no acute events overnight, NAD. The patient is laying comfortably in bed. The patient reports pain relieved w/ medication. Patient reports x2 soft bowel movements yesterday. The patient reports decreased mild vaginal bleed and malodorous discharge. The patient denies drainage from incision this morning. The patient is tolerating PO and ambulatory. Objective - Vital Signs/Intake and Output Vital Signs (last 24 hours): Temp Pulse Resp BP Pulse Ox 97.8 F 86 19 123/74 97 08/21/17 00:00 08/21/17 00:00 08/21/17 00:00 08/21/17 00:00 08/21/17 00:00 - Medications Medications: Current Medications Acetaminophen (Tylenol 325mg Tab) 650 mg PO Q6 PRN PRN Reason: Pain, Mild (1-3) Enoxaparin Sodium (Lovenox) 40 mg SC DAILY [facility] PRN Reason: Protocol Last Admin: 08/20/17 08:51 Dose: 40 mg Meropenem 1 gm/ Sodium (Chloride) 100 mls @ 100 mls/hr IVPB Q8 [facility] PRN Reason: Protocol Last Admin: 08/21/17 00:43 Dose: 100 mls/hr Ibuprofen (Motrin Tab) 600 mg PO Q6 PRN PRN Reason: Pain, moderate (4-7) Last Admin: 08/21/17 05:57 Dose: 600 mg Lactobacillus Acidophilus (Bacid Acidophilus) 1 cap PO BID [facility] Last Admin: 08/20/17 16:26 Dose: 1 cap Ondansetron HCl (Zofran Inj) 4 mg IVP Q6 PRN PRN Reason: Nausea/Vomiting Last Admin: 08/20/17 20:20 Dose: 4 mg Oxycodone/Acetaminophen (Percocet 5/325 Mg Tab) 1 tab PO Q4 PRN PRN Reason: Pain, severe (8-10) Stop: 08/21/17 14:24 Last Admin: 08/21/17 00:53 Dose: 1 tab Sennosides (Senokot Tab) 17.2 mg PO [facility] Last Admin: 08/19/17 22:41 Dose: 17.2 mg Sertraline HCl (Zoloft) 100 mg PO DAILY [facility] Last Admin: 08/20/17 10:28 Dose: 100 mg Trimethoprim/Sulfamethoxazole (Bactrim Ds Tab) 1 tab PO Q12 [facility] PRN Reason: Protocol Last Admin: 08/20/17 21:11 Dose: 1 tab - Labs Labs: 08/19/17 09:20 08/18/17 04:49 PT 12.8 Seconds (9.8-13.1) 08/17/17 13:00 INR 1.2 (0.9-1.2) 08/17/17 13:00 APTT 37.2 Seconds (25.6-37.1) H 08/17/17 13:00 - Constitutional Appears: Non-toxic, No Acute Distress - Head Exam Head Exam: ATRAUMATIC, NORMAL INSPECTION, NORMOCEPHALIC - Eye Exam Eye Exam: Normal appearance - ENT Exam ENT Exam: Mucous Membranes Moist - Neck Exam Neck Exam: Full ROM. absent: Tenderness - Respiratory Exam Respiratory Exam: Clear to Ausculation Bilateral, NORMAL BREATHING PATTERN. absent: Decreased Breath Sounds, Rales, Rhonchi, Wheezes, Respiratory Distress - Cardiovascular Exam Cardiovascular Exam: REGULAR RHYTHM, RRR. absent: Tachycardia - GI/Abdominal Exam GI & Abdominal Exam: Soft, Tenderness, Normal Bowel Sounds. absent: Distended Additional comments: 1 cm exposed incision on right lower abdomen, no drainage, no bleeding, no erythema; remainder of incision c/d/i - Extremities Exam Extremities Exam: Normal Inspection. absent: Calf Tenderness, Pedal Edema, Tenderness - Neurological Exam Neurological Exam: Alert, Awake, Oriented x3 - Skin Skin Exam: Dry, Intact, Normal Color, Warm Assessment and Plan - Assessment and Plan (Free Text) Assessment: 36 y/o woman s/p hysterectomy 08/06/2017, recently evaluated for UTI, fetid vaginal discharge and surgical wound dehiscence Plan: Pelvic fluid collection - afebrile for 72 hours - WBC 08/19/2017: 7.8 - blood culture x2 08/17: no growth - urine culture: ESBL E. coli - wound culture: enterobactercloacae Ssp cloac, coagulase negative staphylococcus - minimal drainage this morning - ID consulted, Dr. Vinson, recommendations appreciated - started bactrim DS PO Q12 day 1 - meropenem 1 gm IV Q8h day 2 out of 7 - DC'ed clindamycin 900 mg IV Q8h day 3 - DC'ed gentamicin 80 mg IV Q8h day 2 - probiotic PO BID - zofran 4 mg IV prn for nausea - monitor for acute changes Pain management - motrin 600 mg PO Q6h prn - percocet 1 tab PO Q4h prn Prophylactic measures - DVT: lovenox 40 mg SC daily, encourage ambulation - constipation: senokot
[2017-08-21] MEDS: Lactobacillus Acidophilus 500 MU Cap PO SCH ×2 (09:31→18:02)
[2017-08-21] MEDS: Tmp-Smz 800 mg-160 mg DS Tab PO SCH ×2 (09:32→20:17)
[2017-08-21] MEDS: Enoxaparin 40 mg Syringe SC SCH (09:32)
--- NOTE | 2017-08-21 15:10 | CP.PCM.PN ---
Subjective - Date & Time of Evaluation Date of Evaluation: 08/21/17 Time of Evaluation: 14:00 - Subjective Subjective: ID Note- Pt. seen and examined today. Pt. states she feels better , only slight pain at lower abd site. denies any further discharge from surgical site. Objective - Vital Signs/Intake and Output Vital Signs (last 24 hours): Temp Pulse Resp BP Pulse Ox 98.0 F 75 18 113/77 96 08/21/17 07:46 08/21/17 07:46 08/21/17 07:46 08/21/17 07:46 08/21/17 07:46 - Medications Medications: Current Medications Acetaminophen (Tylenol 325mg Tab) 650 mg PO Q6 PRN PRN Reason: Pain, Mild (1-3) Enoxaparin Sodium (Lovenox) 40 mg SC DAILY [facility] PRN Reason: Protocol Last Admin: 08/21/17 09:32 Dose: 40 mg Meropenem 1 gm/ Sodium (Chloride) 100 mls @ 100 mls/hr IVPB Q8 [facility] PRN Reason: Protocol Last Admin: 08/21/17 09:33 Dose: 100 mls/hr Ibuprofen (Motrin Tab) 600 mg PO Q6 PRN PRN Reason: Pain, moderate (4-7) Last Admin: 08/21/17 05:57 Dose: 600 mg Lactobacillus Acidophilus (Bacid Acidophilus) 1 cap PO BID [facility] Last Admin: 08/21/17 09:31 Dose: 1 cap Ondansetron HCl (Zofran Inj) 4 mg IVP Q6 PRN PRN Reason: Nausea/Vomiting Last Admin: 08/20/17 20:20 Dose: 4 mg Sennosides (Senokot Tab) 17.2 mg PO HS [facility] Last Admin: 08/19/17 22:41 Dose: 17.2 mg Sertraline HCl (Zoloft) 100 mg PO DAILY [facility] Last Admin: 08/21/17 09:34 Dose: 100 mg Trimethoprim/Sulfamethoxazole (Bactrim Ds Tab) 1 tab PO Q12 [facility] PRN Reason: Protocol Last Admin: 08/21/17 09:32 Dose: 1 tab - Labs Labs: - Additional Findings Additional findings: - Constitutional Appears: No Acute Distress - Head Exam Head Exam: ATRAUMATIC - Eye Exam Eye Exam: EOMI, PERRL - ENT Exam ENT Exam: Normal Oropharynx - Neck Exam Neck exam: Positive for: Full Rom - Respiratory Exam Respiratory Exam: Clear to Auscultation Bilateral, NORMAL BREATHING PATTERN - Cardiovascular Exam Cardiovascular Exam: RRR, +S1, +S2 - GI/Abdominal Exam GI & Abdominal Exam: Normal Bowel Sounds, Soft Additional comments: lower abd/pelvic surgical site , no erythema , right edge of the surgical site with small opening , however, no discharge and almost closed and dry mild tenderness with palpation around the site only but less than before no Guarding, no rebound - Extremities Exam Extremities exam: Positive for: normal inspection - Neurological Exam Neurological exam: Alert, Oriented x 3 Laboratory Results - last 72 hr 08/18/17 08/19/17 08/19/17 22:03 05:34 09:20 WBC 7.8 RBC 4.63 Hgb 10.1 L Hct 31.5 L MCV 68.1 L MCH 21.8 L MCHC 32.0 L RDW 22.6 H Plt Count 394 MPV 9.4 Neut % (Auto) 71.4 Lymph % (Auto) 22.0 [place] % (Auto) 3.6 Eos % (Auto) 2.5 Baso % (Auto) 0.5 Neut # (Auto) 5.6 Lymph # (Auto) 1.7 [place] # (Auto) 0.3 Eos # (Auto) 0.2 Baso # (Auto) 0.0 POC Glucose (mg/dL) 85 89 08/19/17 08/19/17 08/19/17 11:29 18:16 21:28 WBC RBC Hgb Hct MCV MCH MCHC RDW Plt Count MPV Neut % (Auto) Lymph % (Auto) [place] % (Auto) Eos % (Auto) Baso % (Auto) Neut # (Auto) Lymph # (Auto) [place] # (Auto) Eos # (Auto) Baso # (Auto) POC Glucose (mg/dL) 73 126 H 87 08/20/17 08/20/17 08/20/17 05:26 11:48 15:35 WBC RBC Hgb Hct MCV MCH MCHC RDW Plt Count MPV Neut % (Auto) Lymph % (Auto) [place] % (Auto) Eos % (Auto) Baso % (Auto) Neut # (Auto) Lymph # (Auto) [place] # (Auto) Eos # (Auto) Baso # (Auto) POC Glucose (mg/dL) 90 88 77 08/20/17 08/21/17 08/21/17 23:50 05:42 11:00 WBC RBC Hgb Hct MCV MCH MCHC RDW Plt Count MPV Neut % (Auto) Lymph % (Auto) [place] % (Auto) Eos % (Auto) Baso % (Auto) Neut # (Auto) Lymph # (Auto) [place] # (Auto) Eos # (Auto) Baso # (Auto) POC Glucose (mg/dL) 102 85 74 Microbiology 08/17/17 13:15 Blood Blood Culture - Preliminary NO GROWTH AFTER 3 DAYS 08/17/17 13:15 Blood Blood Culture - Preliminary NO GROWTH AFTER 3 DAYS 08/17/17 12:05 Abdomen Gram Stain - Final 08/17/17 12:05 Abdomen Wound Culture - Final Enterobacter Cloacae Ssp Cloac Coagulase Neg Staphylococcus 08/17/17 13:01 Urine,Clean Catch Urine Culture - Final Escherichia Coli Assessment and Plan (1) UTI (urinary tract infection) Status: Acute (2) Wound abscess Status: Acute (3) S/P total abdominal hysterectomy Status: Acute - Assessment and Plan (Free Text) Assessment: A/P- 36 year old female s/p hysterectomy admitted with surgical site pain and vaginal discharge and small opening at surgical site with scant drainage and leukocytosis. found to have ESBL e.coli UTI blood cx- neg x 3 CT abd/pelvic report noted. wound cx-enterobacter and coag neg staph leukocytosis has resolved. afebrile plan- advise to continue with IV meropenem which could treat the ESBL e.coli and cover the enterobacter cloacae in wound cx. day #3. would advise total of 7 days of IV meropnem for the ESBL e.coli treatment. check repeat UA in 1-2 days. continue with po bactrim for the coag neg staph.day #2. advise total of 7 days. all above d/w patient and she verbalizes full understanding of all above and agrees with above plan of care.
[2017-08-22] MEDS: Meropenem 1 GM in Sodium Chloride 0.9% 100 ML IVPB SCH ×3 (01:03→16:34)
[2017-08-22] MEDS: Tmp-Smz 800 mg-160 mg DS Tab PO SCH ×2 (09:10→21:14)
[2017-08-22] MEDS: Lactobacillus Acidophilus 500 MU Cap PO SCH ×2 (09:10→16:33)
[2017-08-22] MEDS: Enoxaparin 40 mg Syringe SC SCH (09:10)
--- NOTE | 2017-08-22 11:50 | CP.PCM.PN ---
Subjective - Date & Time of Evaluation Date of Evaluation: 08/22/17 Time of Evaluation: 09:00 - Subjective Subjective: Patient seen and examined bedside this morning. Patient in contact isolation due to ESBL E.coli in urine. There are no acute events overnight, NAD. The patient is laying comfortably in bed. The patient reports pain relieved w/ medication. Patient reports soft bowel movement last night. The patient reports decreased minimal vaginal bleed and malodorous discharge. The patient denies drainage from incision this morning. The patient is tolerating PO and ambulatory. Objective - Vital Signs/Intake and Output Vital Signs (last 24 hours): Temp Pulse Resp BP Pulse Ox 98.5 F 73 20 118/79 98 08/22/17 09:00 08/22/17 09:00 08/22/17 09:00 08/22/17 09:00 08/22/17 09:00 - Medications Medications: Current Medications Acetaminophen (Tylenol 325mg Tab) 650 mg PO Q6 PRN PRN Reason: Pain, Mild (1-3) Enoxaparin Sodium (Lovenox) 40 mg SC DAILY [facility] PRN Reason: Protocol Last Admin: 08/22/17 09:10 Dose: 40 mg Meropenem 1 gm/ Sodium (Chloride) 100 mls @ 100 mls/hr IVPB Q8 [facility] PRN Reason: Protocol Last Admin: 08/22/17 09:11 Dose: 100 mls/hr Ibuprofen (Motrin Tab) 600 mg PO Q6 PRN PRN Reason: Pain, moderate (4-7) Last Admin: 08/21/17 18:13 Dose: 600 mg Lactobacillus Acidophilus (Bacid Acidophilus) 1 cap PO BID [facility] Last Admin: 08/22/17 09:10 Dose: 1 cap Ondansetron HCl (Zofran Inj) 4 mg IVP Q6 PRN PRN Reason: Nausea/Vomiting Last Admin: 08/20/17 20:20 Dose: 4 mg Sennosides (Senokot Tab) 17.2 mg PO HS [facility] Last Admin: 08/19/17 22:41 Dose: 17.2 mg Sertraline HCl (Zoloft) 100 mg PO DAILY [facility] Last Admin: 08/22/17 09:13 Dose: 100 mg Trimethoprim/Sulfamethoxazole (Bactrim Ds Tab) 1 tab PO Q12 [facility] PRN Reason: Protocol Last Admin: 08/22/17 09:10 Dose: 1 tab - Labs Labs: 08/19/17 09:20 08/18/17 04:49 PT 12.8 Seconds (9.8-13.1) 08/17/17 13:00 INR 1.2 (0.9-1.2) 08/17/17 13:00 APTT 37.2 Seconds (25.6-37.1) H 08/17/17 13:00 - Constitutional Appears: Non-toxic, No Acute Distress - Head Exam Head Exam: ATRAUMATIC, NORMAL INSPECTION, NORMOCEPHALIC - Eye Exam Eye Exam: Normal appearance - ENT Exam ENT Exam: Mucous Membranes Moist - Neck Exam Neck Exam: Full ROM. absent: Tenderness - Respiratory Exam Respiratory Exam: Clear to Ausculation Bilateral, NORMAL BREATHING PATTERN. absent: Decreased Breath Sounds, Rales, Rhonchi, Wheezes, Respiratory Distress - Cardiovascular Exam Cardiovascular Exam: REGULAR RHYTHM, RRR. absent: Tachycardia - GI/Abdominal Exam GI & Abdominal Exam: Soft, Tenderness, Normal Bowel Sounds. absent: Distended Additional comments: 1 cm exposed incision on right lower abdomen, no drainage, no bleeding, no erythema; remainder of incision c/d/i - Extremities Exam Extremities Exam: Full ROM, Normal Inspection. absent: Calf Tenderness, Pedal Edema, Tenderness - Neurological Exam Neurological Exam: Alert, Awake, Oriented x3 - Skin Skin Exam: Dry, Intact, Normal Color, Warm Assessment and Plan - Assessment and Plan (Free Text) Assessment: 36 y/o woman s/p hysterectomy 08/06/2017, recently evaluated for UTI, fetid vaginal discharge and surgical wound dehiscence Plan: Pelvic fluid collection - afebrile for 72 hours - WBC 08/19/2017: 7.8 - blood culture x2 08/17: no growth - urine culture: ESBL E. coli - wound culture: enterobactercloacae Ssp cloac, coagulase negative staphylococcus - minimal drainage this morning - ID consulted, Dr. Vinson, recommendations appreciated - bactrim DS PO Q12 day 3 out of 7 - meropenem 1 gm IV Q8h day 4 out of 7 - DC'ed clindamycin 900 mg IV Q8h day 3 - DC'ed gentamicin 80 mg IV Q8h day 2 - probiotic PO BID - zofran 4 mg IV prn for nausea - f/u UA - monitor for acute changes Pain management - motrin 600 mg PO Q6h prn - percocet 1 tab PO Q4h prn Prophylactic measures - DVT: lovenox 40 mg SC daily, encourage ambulation - constipation: senokot
[2017-08-22 15:44] LABS: SQUAMOUS EPITHIAL < 1 /hpf (0-5); URINE BILIRUBIN NEGATIVE (NEGATIVE); URINE BLOOD NEGATIVE (NEGATIVE); URINE CLARITY CLEAR (Clear); URINE COLOR STRAW (YELLOW); URINE GLUCOSE (UA) NEG (Normal); URINE LEUKOCYTE ESTERASE NEG Leu/uL (Negative); URINE PROTEIN NEGATIVE (NEGATIVE); URINE UROBILINOGEN 0.2-1.0 mg/dL (0.2-1.0)
[2017-08-22 15:51] LABS: URINE BACTERIA FEW (<OCC)
[2017-08-23] MEDS: Meropenem 1 GM in Sodium Chloride 0.9% 100 ML IVPB SCH ×3 (00:34→16:24)
[2017-08-23] MEDS: Lactobacillus Acidophilus 500 MU Cap PO SCH ×2 (08:09→16:24)
[2017-08-23] MEDS: Enoxaparin 40 mg Syringe SC SCH (08:10)
[2017-08-23] MEDS: Tmp-Smz 800 mg-160 mg DS Tab PO SCH ×2 (08:10→21:06)
--- NOTE | 2017-08-23 08:14 | CP.PCM.PN ---
Subjective - Date & Time of Evaluation Date of Evaluation: 08/23/17 Time of Evaluation: 07:45 - Subjective Subjective: Patient seen and examined bedside this morning. Patient in contact isolation due to ESBL E.coli in urine. There are no acute events overnight, NAD. The patient is laying comfortably in bed. The patient reports pain relieved w/ medication. Patient reports x3 green colored soft bowel movement yesterday. Patient had associated nausea and tension headache relieved w/ medication. The patient reports no vaginal bleed and malodorous discharge. The patient denies drainage from incision this morning. The patient is tolerating PO and ambulatory. Objective - Vital Signs/Intake and Output Vital Signs (last 24 hours): Temp Pulse Resp BP Pulse Ox 98.4 F 65 20 119/75 99 08/23/17 07:47 08/23/17 07:47 08/23/17 07:47 08/23/17 07:47 08/23/17 07:47 - Medications Medications: Current Medications Acetaminophen (Tylenol 325mg Tab) 650 mg PO Q6 PRN PRN Reason: Pain, Mild (1-3) Enoxaparin Sodium (Lovenox) 40 mg SC DAILY [facility] PRN Reason: Protocol Last Admin: 08/23/17 08:10 Dose: 40 mg Meropenem 1 gm/ Sodium (Chloride) 100 mls @ 100 mls/hr IVPB Q8 [facility] PRN Reason: Protocol Last Admin: 08/23/17 08:10 Dose: 100 mls/hr Ibuprofen (Motrin Tab) 600 mg PO Q6 PRN PRN Reason: Pain, moderate (4-7) Last Admin: 08/23/17 08:09 Dose: 600 mg Lactobacillus Acidophilus (Bacid Acidophilus) 1 cap PO BID [facility] Last Admin: 08/23/17 08:09 Dose: 1 cap Ondansetron HCl (Zofran Inj) 4 mg IVP Q6 PRN PRN Reason: Nausea/Vomiting Last Admin: 08/22/17 16:38 Dose: 4 mg Sennosides (Senokot Tab) 17.2 mg PO HS [facility] Last Admin: 08/22/17 21:14 Dose: Not Given Sertraline HCl (Zoloft) 100 mg PO DAILY [facility] Last Admin: 08/23/17 08:11 Dose: 100 mg Trimethoprim/Sulfamethoxazole (Bactrim Ds Tab) 1 tab PO Q12 [facility] PRN Reason: Protocol Last Admin: 08/23/17 08:10 Dose: 1 tab - Labs Labs: 08/19/17 09:20 08/18/17 04:49 PT 12.8 Seconds (9.8-13.1) 08/17/17 13:00 INR 1.2 (0.9-1.2) 08/17/17 13:00 APTT 37.2 Seconds (25.6-37.1) H 08/17/17 13:00 - Constitutional Appears: Non-toxic, No Acute Distress - Head Exam Head Exam: ATRAUMATIC, NORMAL INSPECTION, NORMOCEPHALIC - Eye Exam Eye Exam: Normal appearance - ENT Exam ENT Exam: Mucous Membranes Moist - Neck Exam Neck Exam: Full ROM. absent: Tenderness - Respiratory Exam Respiratory Exam: Clear to Ausculation Bilateral, NORMAL BREATHING PATTERN. absent: Decreased Breath Sounds, Rales, Rhonchi, Wheezes, Respiratory Distress - Cardiovascular Exam Cardiovascular Exam: REGULAR RHYTHM, RRR. absent: Tachycardia - GI/Abdominal Exam GI & Abdominal Exam: Soft, Tenderness, Normal Bowel Sounds. absent: Distended Additional comments: 1 cm exposed incision on right lower abdomen, no drainage, no bleeding, no erythema; remainder of incision c/d/i; mild lower abdominal tenderness to palpation - Extremities Exam Extremities Exam: absent: Calf Tenderness, Pedal Edema, Tenderness - Neurological Exam Neurological Exam: Alert, Awake, Oriented x3 - Skin Skin Exam: Dry, Intact, Normal Color, Warm Assessment and Plan - Assessment and Plan (Free Text) Assessment: 36 y/o woman s/p hysterectomy 08/06/2017, recently evaluated for UTI, fetid vaginal discharge and surgical wound dehiscence Plan: Pelvic fluid collection - afebrile for 72 hours - WBC 08/19/2017: 7.8 - blood culture x2 08/17: no growth - urine culture: ESBL E. coli - wound culture: enterobactercloacae Ssp cloac, coagulase negative staphylococcus - minimal drainage this morning - ID consulted, Dr. Vinson, recommendations appreciated - bactrim DS PO Q12 day 4 out of 7 - meropenem 1 gm IV Q8h day 5 out of 7 - DC'ed clindamycin 900 mg IV Q8h day 3 - DC'ed gentamicin 80 mg IV Q8h day 2 - probiotic PO BID - zofran 4 mg IV prn for nausea - UA 08/22: clear, negative for protein, glucose, ketones, blood, nitrates, bilirubin, and leukocyte esterase - monitor for acute changes Pain management - motrin 600 mg PO Q6h prn - percocet 1 tab PO Q4h prn Prophylactic measures - DVT: lovenox 40 mg SC daily, encourage ambulation - constipation: senokot Dispo: DC to home Saturday/evening after completion of meropenem, give script for 1 more day of bactrim DS PO Q12, appointment w/ Dr. Frederick 08/27 @ 13 :00
[2017-08-24] MEDS: Meropenem 1 GM in Sodium Chloride 0.9% 100 ML IVPB SCH ×3 (00:06→16:06)
[2017-08-24] MEDS: Tmp-Smz 800 mg-160 mg DS Tab PO SCH ×2 (08:28→20:56)
[2017-08-24] MEDS: Enoxaparin 40 mg Syringe SC SCH (08:29)
[2017-08-24] MEDS: Lactobacillus Acidophilus 500 MU Cap PO SCH ×2 (08:29→16:06)
[2017-08-24 08:30] VITALS: RESP 20
--- NOTE | 2017-08-24 08:42 | CP.PCM.PN ---
<Walt Wood - Last Filed: 08/24/17 09:30> Subjective - Date & Time of Evaluation Date of Evaluation: 08/24/17 Time of Evaluation: 08:40 - Subjective Subjective: 36 y/o F evaluated and examined by bedside. Pt reports feeling nauseous for 2 days, vomited only clear fluid and saliva. Pt also reports having 5-6 green loose stools yesterday with NO blood or mucus. Pt afebrile, tolerating PO, ambulating with NO difficulties. Pt still has some vaginal discharge but is not as malodorous as in the beginning. No urinary complaints. Objective - Vital Signs/Intake and Output Vital Signs (last 24 hours): Temp Pulse Resp BP Pulse Ox 99 F 87 20 131/84 93 L 08/24/17 08:29 08/24/17 08:29 08/24/17 08:29 08/24/17 08:29 08/24/17 08:29 - Medications Medications: Current Medications Acetaminophen (Tylenol 325mg Tab) 650 mg PO Q6 PRN PRN Reason: Pain, Mild (1-3) Last Admin: 08/23/17 21:09 Dose: 650 mg Enoxaparin Sodium (Lovenox) 40 mg SC DAILY [facility] PRN Reason: Protocol Last Admin: 08/24/17 08:29 Dose: 40 mg Meropenem 1 gm/ Sodium (Chloride) 100 mls @ 100 mls/hr IVPB Q8 [facility] PRN Reason: Protocol Last Admin: 08/24/17 08:30 Dose: 100 mls/hr Ibuprofen (Motrin Tab) 600 mg PO Q6 PRN PRN Reason: Pain, moderate (4-7) Last Admin: 08/23/17 16:30 Dose: 600 mg Lactobacillus Acidophilus (Bacid Acidophilus) 1 cap PO BID [facility] Last Admin: 08/24/17 08:29 Dose: 1 cap Ondansetron HCl (Zofran Inj) 4 mg IVP Q6 PRN PRN Reason: Nausea/Vomiting Last Admin: 08/23/17 12:26 Dose: 4 mg Sertraline HCl (Zoloft) 100 mg PO DAILY [facility] Last Admin: 08/24/17 08:29 Dose: 100 mg Trimethoprim/Sulfamethoxazole (Bactrim Ds Tab) 1 tab PO Q12 [facility] PRN Reason: Protocol Last Admin: 08/24/17 08:28 Dose: 1 tab - Labs Labs: 08/19/17 09:20 08/18/17 04:49 PT 12.8 Seconds (9.8-13.1) 08/17/17 13:00 INR 1.2 (0.9-1.2) 08/17/17 13:00 APTT 37.2 Seconds (25.6-37.1) H 08/17/17 13:00 - Constitutional Appears: Well, No Acute Distress - Head Exam Head Exam: ATRAUMATIC - Eye Exam Eye Exam: EOMI, Normal appearance - ENT Exam ENT Exam: Mucous Membranes Moist, Normal Exam - Neck Exam Neck Exam: Full ROM - Respiratory Exam Respiratory Exam: Clear to Ausculation Bilateral, NORMAL BREATHING PATTERN - Cardiovascular Exam Cardiovascular Exam: REGULAR RHYTHM, +S1, +S2 - GI/Abdominal Exam GI & Abdominal Exam: Soft, Tenderness (very mild on left side of surgical wound. ) Additional comments: Surgical incision is closing completely, no discharge noticed. - Extremities Exam Extremities Exam: Full ROM, Normal Inspection - Neurological Exam Neurological Exam: Alert, Awake, Oriented x3 Assessment and Plan - Assessment and Plan (Free Text) Assessment: 36 y/o woman s/p hysterectomy 08/06/2017, recently evaluated for UTI, fetid vaginal discharge and surgical wound dehiscence. Plan: Pelvic fluid collection - afebrile for 72 hours - WBC 08/19/2017: 7.8 - blood culture x2 08/17: no growth - urine culture: ESBL E. coli - wound culture: enterobactercloacae Ssp cloac, coagulase negative staphylococcus - minimal drainage this morning - ID consulted, Dr. Vinson, recommendations appreciated - bactrim DS PO Q12 day 4 out of 7 - meropenem 1 gm IV Q8h day 5 out of 7 - DC'ed clindamycin 900 mg IV Q8h day 3 - DC'ed gentamicin 80 mg IV Q8h day 2 - probiotic PO BID - zofran 4 mg IV prn for nausea - UA 08/22: clear, negative for protein, glucose, ketones, blood, nitrates, bilirubin, and leukocyte esterase - monitor for acute changes Loose stools/Diarrhea - 5-6 loose stools yesterday. 3-4 green loose stools 2 days ago. - Pt on Lactibacillus BID. - C diff screen ordered today. Pain management - motrin 600 mg PO Q6h prn - percocet 1 tab PO Q4h prn Prophylactic measures - DVT: lovenox 40 mg SC daily, encourage ambulation - constipation: senokot Dispo: DC to home Saturday afternoon/evening after completion of meropenem, give script for 1 more day of bactrim DS PO Q12, appointment w/ Dr. Frederick 08/27 @ 13 :00 <Destin Lloyd - Last Filed: 08/26/17 00:02> Objective - Vital Signs/Intake and Output Vital Signs (last 24 hours): Temp Pulse Resp BP Pulse Ox 98.1 F 69 20 134/87 98 08/25/17 15:37 08/25/17 15:37 08/25/17 15:37 08/25/17 15:37 08/25/17 15:37 - Labs Labs: 08/19/17 09:20 08/18/17 04:49 PT 12.8 Seconds (9.8-13.1) 08/17/17 13:00 INR 1.2 (0.9-1.2) 08/17/17 13:00 APTT 37.2 Seconds (25.6-37.1) H 08/17/17 13:00 Attending/Attestation - Attestation I have personally seen and examined this patient.: Yes I have fully participated in the care of the patient.: Yes I have reviewed all pertinent clinical information, including history, physical exam and plan: Yes
[2017-08-24] MEDS ORDERED: Enoxaparin 40 mg Syringe SC SCH (09:00)
[2017-08-25] MEDS: Meropenem 1 GM in Sodium Chloride 0.9% 100 ML IVPB SCH ×4 (00:49→16:14)
--- NOTE | 2017-08-25 08:18 | CP.PCM.DIS ---
<Sandrine Schmidt - Last Filed: 08/25/17 16:25> Provider - Provider Date of Admission: 08/17/17 21:32 Attending physician: Andrei Molina MD Time Spent in preparation of Discharge (in minutes): 30 Hospital Course - Lab Results Lab Results: Micro Results 08/17/17 13:15 Blood Blood Culture - Final NO GROWTH AFTER 5 DAYS 08/17/17 13:15 Blood Gram Stain - Final TEST NOT PERFORMED 08/17/17 13:15 Blood Blood Culture - Final NO GROWTH AFTER 5 DAYS 08/17/17 13:15 Blood Gram Stain - Final TEST NOT PERFORMED 08/17/17 12:05 Abdomen Gram Stain - Final 08/17/17 12:05 Abdomen Wound Culture - Final Enterobacter Cloacae Ssp Cloac Coagulase Neg Staphylococcus 08/17/17 13:01 Urine,Clean Catch Urine Culture - Final Escherichia Coli Most Recent Lab Values WBC 7.8 K/uL (4.8-10.8) 08/19/17 09:20 RBC 4.63 Mil/uL (3.80-5.20) 08/19/17 09:20 Hgb 10.1 g/dL (12.0-16.0) L 08/19/17 09:20 Hct 31.5 % (34.0-47.0) L 08/19/17 09:20 MCV 68.1 fl (81.0-99.0) L 08/19/17 09:20 MCH 21.8 pg (27.0-31.0) L 08/19/17 09:20 MCHC 32.0 g/dL (33.0-37.0) L 08/19/17 09:20 RDW 22.6 % (11.5-14.5) H 08/19/17 09:20 Plt Count 394 K/uL (130-400) 08/19/17 09:20 MPV 9.4 fl (7.2-11.7) 08/19/17 09:20 Neut % (Auto) 71.4 % (50.0-75.0) 08/19/17 09:20 Lymph % (Auto) 22.0 % (20.0-40.0) 08/19/17 09:20 Ford % (Auto) 3.6 % (0.0-10.0) 08/19/17 09:20 Eos % (Auto) 2.5 % (0.0-4.0) 08/19/17 09:20 Baso % (Auto) 0.5 % (0.0-2.0) 08/19/17 09:20 Neut # (Auto) 5.6 K/uL (1.8-7.0) 08/19/17 09:20 Lymph # (Auto) 1.7 K/uL (1.0-4.3) 08/19/17 09:20 Ford # (Auto) 0.3 K/uL (0.0-0.8) 08/19/17 09:20 Eos # (Auto) 0.2 K/uL (0.0-0.7) 08/19/17 09:20 Baso # (Auto) 0.0 K/uL (0.0-0.2) 08/19/17 09:20 PT 12.8 Seconds (9.8-13.1) 08/17/17 13:00 INR 1.2 (0.9-1.2) 08/17/17 13:00 APTT 37.2 Seconds (25.6-37.1) H 08/17/17 13:00 pO2 30 mm/Hg (30-55) 08/17/17 20:14 VBG pH 7.40 (7.32-7.43) 08/17/17 20:14 VBG pCO2 43 mmHg (40-60) 08/17/17 20:14 VBG HCO3 25.0 mmol/L 08/17/17 20:14 VBG Total CO2 27.9 mmol/L (22-28) 08/17/17 20:14 VBG O2 Sat (Calc) 63.1 % (40-65) 08/17/17 20:14 VBG Base Excess 1.5 mmol/L (0.0-2.0) 08/17/17 20:14 VBG Potassium 3.9 mmol/L (3.6-5.2) 08/17/17 20:14 Sodium 140.0 mmol/L (132-148) 08/17/17 20:14 Chloride 111.0 mmol/L (98-107) H 08/17/17 20:14 Glucose 90 mg/dL (65-105) 08/17/17 20:14 Lactate 1.4 mmol/L (0.7-2.1) 08/17/17 20:14 FiO2 21.0 % 08/17/17 20:14 Sodium 143 mmol/l (132-148) 08/18/17 04:49 Potassium 4.2 MMOL/L (3.6-5.0) 08/18/17 04:49 Chloride 106 mmol/L (98-107) 08/18/17 04:49 Carbon Dioxide 26 mmol/L (22-30) 08/18/17 04:49 Anion Gap 15 (10-20) 08/18/17 04:49 BUN 12 mg/dl (7-17) 08/18/17 04:49 Creatinine 0.7 mg/dl (0.7-1.2) 08/18/17 04:49 Est GFR ( Amer) > 60 08/18/17 04:49 Est GFR (Non-Af Amer) > 60 08/18/17 04:49 POC Glucose (mg/dL) 75 mg/dL (65-110) 08/25/17 05:22 Random Glucose 91 mg/dL (65-105) 08/18/17 04:49 Calcium 8.8 mg/dL (8.4-10.2) 08/18/17 04:49 Phosphorus 3.7 mg/dl (2.5-4.5) 08/17/17 13:00 Magnesium 2.0 MG/DL (1.6-2.3) 08/17/17 13:00 Total Bilirubin 0.4 mg/dl (0.2-1.3) 08/18/17 04:49 AST 29 U/L (14-36) 08/18/17 04:49 ALT 29 U/L (9-52) 08/18/17 04:49 Alkaline Phosphatase 82 U/L (38-126) 08/18/17 04:49 Troponin I < 0.0120 ng/mL (0.00-0.120) 08/17/17 13:00 Total Protein 7.0 G/DL (6.3-8.2) 08/18/17 04:49 Albumin 3.5 g/dL (3.5-5.0) 08/18/17 04:49 Globulin 3.5 gm/dL (2.2-3.9) 08/18/17 04:49 Albumin/Globulin Ratio 1.0 (1.0-2.1) 08/18/17 04:49 Venous Blood Potassium 3.9 mmol/L (3.6-5.2) 08/17/17 20:14 Urine Color Straw (YELLOW) 08/22/17 15:34 Urine Clarity Clear (Clear) 08/22/17 15:34 Urine pH 7.0 (5.0-8.0) 08/22/17 15:34 Ur Specific Childs 1.011 (1.003-1.030) 08/22/17 15:34 Urine Protein Negative mg/dL (NEGATIVE) 08/22/17 15:34 Urine Glucose (UA) Neg mg/dL (Normal) 08/22/17 15:34 Urine Ketones Negative mg/dL (NEGATIVE) 08/22/17 15:34 Urine Blood Negative (NEGATIVE) 08/22/17 15:34 Urine Nitrate Negative (NEGATIVE) 08/22/17 15:34 Urine Bilirubin Negative (NEGATIVE) 08/22/17 15:34 Urine Urobilinogen 0.2-1.0 mg/dL (0.2-1.0) 08/22/17 15:34 Ur Leukocyte Esterase Neg Helga/uL (Negative) 08/22/17 15:34 Urine RBC (Auto) 1 /hpf (0-3) 08/22/17 15:34 Urine WBC Clumps (Auto) Occ /hpf (NONE) H 08/17/17 13:00 Urine Microscopic WBC 2 /hpf (0-5) 08/22/17 15:34 Ur Squamous Epith Cells < 1 /hpf (0-5) 08/22/17 15:34 Calcium Oxalate Crystal Few /hpf (<OCC) H 08/17/17 13:00 Urine Bacteria Few (<OCC) H 08/22/17 15:34 C. difficile Ag & Toxin Negative (NEGATIVE) 08/24/17 11:25 - Hospital Course Hospital Course: 36 y.o. F s/p hysterectomy, was admitted for evaluation and management of UTI, fetid vaginal discharge and surgical wound dehiscence. --Upon admission CBC showed elevated WBC, 13.5, and high neutrophil count 76.3; Urinalysis remarkable with RBCs and large leuko esterase. CT Abdomen/Pelvis showed a small 6x2.6 cm proteinaceous collection in pelvis that contains bubbles of air. See full report. --Pt was initiated empirically on IV Ampicillin, Clindamycin and Gentamycin. --Urine culture the next day of admission showed growth of E. Coli-ESBL. --ID modified treatment and recommended a 7 days course of both IV Meropenem and PO Bactrim. Today, pt given last dose of Meropenem to finish 7/7 days of treatment and last dose of PO Bactrim on Saturday to finish 7 days course. Pt stable, afebrile, tolerating PO, ambulating, voiding without any difficulties. Pt discharged with prescription for 3 tabs of PO Bactrim. Will f/u with Dr Monreal on Saturday at 1 pm [facility]. C diff is negative and Urine culture (08/24) is pending. Discharge Exam - Head Exam Head Exam: ATRAUMATIC - Eye Exam Eye Exam: EOMI, Normal appearance - ENT Exam ENT Exam: Mucous Membranes Moist - Neck Exam Neck exam: Full Rom - Respiratory Exam Respiratory Exam: Clear to PA & Lateral, NORMAL BREATHING PATTERN - Cardiovascular Exam Cardiovascular Exam: REGULAR RHYTHM, +S1, +S2 - GI/Abdominal Exam GI & Abdominal Exam: Normal Bowel Sounds, Tenderness (mild tenderness to palpation of the suprapubic area). absent: Distended, Guarding Additional comments: Low abdominal incision, healing well dry, clean and intact. No discharge noted. - Extremities Exam Extremities exam: full ROM - Neurological Exam Neurological exam: Alert, CN II-XII Intact, Oriented x3 - Psychiatric Exam Psychiatric exam: Normal Affect, Normal Mood - Skin Skin Exam: Dry, Intact, Normal Color, Warm Discharge Plan - Discharge Medications Prescriptions: Sulfamethoxazole/Trimethoprim [Bactrim DS Tab] 1 tab PO Q12 #3 tab - Follow Up Plan Condition: FAIR Disposition: HOME/ ROUTINE Patient education suggested?: Yes Instructions: Extended-Spectrum Beta Lactamase Infection, Urinary Tract Infection in Women (DC) Additional Instructions: Please follow up with Dr. Frederick on 08/27/17 @ 1PM Please come back to ED if pain worsens, with fever. <Destin Lloyd - Last Filed: 08/26/17 00:04> Provider - Provider Date of Admission: 08/17/17 21:32 Attending physician: Andrei Molina MD Hospital Course - Lab Results Lab Results: Micro Results 08/17/17 13:15 Blood Blood Culture - Final NO GROWTH AFTER 5 DAYS 08/17/17 13:15 Blood Gram Stain - Final TEST NOT PERFORMED 08/17/17 13:15 Blood Blood Culture - Final NO GROWTH AFTER 5 DAYS 08/17/17 13:15 Blood Gram Stain - Final TEST NOT PERFORMED 08/17/17 12:05 Abdomen Gram Stain - Final 08/17/17 12:05 Abdomen Wound Culture - Final Enterobacter Cloacae Ssp Cloac Coagulase Neg Staphylococcus 08/17/17 13:01 Urine,Clean Catch Urine Culture - Final Escherichia Coli Most Recent Lab Values WBC 7.8 K/uL (4.8-10.8) 08/19/17 09:20 RBC 4.63 Mil/uL (3.80-5.20) 08/19/17 09:20 Hgb 10.1 g/dL (12.0-16.0) L 08/19/17 09:20 Hct 31.5 % (34.0-47.0) L 08/19/17 09:20 MCV 68.1 fl (81.0-99.0) L 08/19/17 09:20 MCH 21.8 pg (27.0-31.0) L 08/19/17 09:20 MCHC 32.0 g/dL (33.0-37.0) L 08/19/17 09:20 RDW 22.6 % (11.5-14.5) H 08/19/17 09:20 Plt Count 394 K/uL (130-400) 08/19/17 09:20 MPV 9.4 fl (7.2-11.7) 08/19/17 09:20 Neut % (Auto) 71.4 % (50.0-75.0) 08/19/17 09:20 Lymph % (Auto) 22.0 % (20.0-40.0) 08/19/17 09:20 Ford % (Auto) 3.6 % (0.0-10.0) 08/19/17 09:20 Eos % (Auto) 2.5 % (0.0-4.0) 08/19/17 09:20 Baso % (Auto) 0.5 % (0.0-2.0) 08/19/17 09:20 Neut # (Auto) 5.6 K/uL (1.8-7.0) 08/19/17 09:20 Lymph # (Auto) 1.7 K/uL (1.0-4.3) 08/19/17 09:20 Ford # (Auto) 0.3 K/uL (0.0-0.8) 08/19/17 09:20 Eos # (Auto) 0.2 K/uL (0.0-0.7) 08/19/17 09:20 Baso # (Auto) 0.0 K/uL (0.0-0.2) 08/19/17 09:20 PT 12.8 Seconds (9.8-13.1) 08/17/17 13:00 INR 1.2 (0.9-1.2) 08/17/17 13:00 APTT 37.2 Seconds (25.6-37.1) H 08/17/17 13:00 pO2 30 mm/Hg (30-55) 08/17/17 20:14 VBG pH 7.40 (7.32-7.43) 08/17/17 20:14 VBG pCO2 43 mmHg (40-60) 08/17/17 20:14 VBG HCO3 25.0 mmol/L 08/17/17 20:14 VBG Total CO2 27.9 mmol/L (22-28) 08/17/17 20:14 VBG O2 Sat (Calc) 63.1 % (40-65) 08/17/17 20:14 VBG Base Excess 1.5 mmol/L (0.0-2.0) 08/17/17 20:14 VBG Potassium 3.9 mmol/L (3.6-5.2) 08/17/17 20:14 Sodium 140.0 mmol/L (132-148) 08/17/17 20:14 Chloride 111.0 mmol/L (98-107) H 08/17/17 20:14 Glucose 90 mg/dL (65-105) 08/17/17 20:14 Lactate 1.4 mmol/L (0.7-2.1) 08/17/17 20:14 FiO2 21.0 % 08/17/17 20:14 Sodium 143 mmol/l (132-148) 08/18/17 04:49 Potassium 4.2 MMOL/L (3.6-5.0) 08/18/17 04:49 Chloride 106 mmol/L (98-107) 08/18/17 04:49 Carbon Dioxide 26 mmol/L (22-30) 08/18/17 04:49 Anion Gap 15 (10-20) 08/18/17 04:49 BUN 12 mg/dl (7-17) 08/18/17 04:49 Creatinine 0.7 mg/dl (0.7-1.2) 08/18/17 04:49 Est GFR ( Amer) > 60 08/18/17 04:49 Est GFR (Non-Af Amer) > 60 08/18/17 04:49 POC Glucose (mg/dL) 78 mg/dL (65-110) 08/25/17 16:15 Random Glucose 91 mg/dL (65-105) 08/18/17 04:49 Calcium 8.8 mg/dL (8.4-10.2) 08/18/17 04:49 Phosphorus 3.7 mg/dl (2.5-4.5) 08/17/17 13:00 Magnesium 2.0 MG/DL (1.6-2.3) 08/17/17 13:00 Total Bilirubin 0.4 mg/dl (0.2-1.3) 08/18/17 04:49 AST 29 U/L (14-36) 08/18/17 04:49 ALT 29 U/L (9-52) 08/18/17 04:49 Alkaline Phosphatase 82 U/L (38-126) 08/18/17 04:49 Troponin I < 0.0120 ng/mL (0.00-0.120) 08/17/17 13:00 Total Protein 7.0 G/DL (6.3-8.2) 08/18/17 04:49 Albumin 3.5 g/dL (3.5-5.0) 08/18/17 04:49 Globulin 3.5 gm/dL (2.2-3.9) 08/18/17 04:49 Albumin/Globulin Ratio 1.0 (1.0-2.1) 08/18/17 04:49 Venous Blood Potassium 3.9 mmol/L (3.6-5.2) 08/17/17 20:14 Urine Color Straw (YELLOW) 08/22/17 15:34 Urine Clarity Clear (Clear) 08/22/17 15:34 Urine pH 7.0 (5.0-8.0) 08/22/17 15:34 Ur Specific Childs 1.011 (1.003-1.030) 08/22/17 15:34 Urine Protein Negative mg/dL (NEGATIVE) 08/22/17 15:34 Urine Glucose (UA) Neg mg/dL (Normal) 08/22/17 15:34 Urine Ketones Negative mg/dL (NEGATIVE) 08/22/17 15:34 Urine Blood Negative (NEGATIVE) 08/22/17 15:34 Urine Nitrate Negative (NEGATIVE) 08/22/17 15:34 Urine Bilirubin Negative (NEGATIVE) 08/22/17 15:34 Urine Urobilinogen 0.2-1.0 mg/dL (0.2-1.0) 08/22/17 15:34 Ur Leukocyte Esterase Neg Helga/uL (Negative) 08/22/17 15:34 Urine RBC (Auto) 1 /hpf (0-3) 08/22/17 15:34 Urine WBC Clumps (Auto) Occ /hpf (NONE) H 08/17/17 13:00 Urine Microscopic WBC 2 /hpf (0-5) 08/22/17 15:34 Ur Squamous Epith Cells < 1 /hpf (0-5) 08/22/17 15:34 Calcium Oxalate Crystal Few /hpf (<OCC) H 08/17/17 13:00 Urine Bacteria Few (<OCC) H 08/22/17 15:34 C. difficile Ag & Toxin Negative (NEGATIVE) 08/24/17 11:25 Attending/Attestation - Attestation I have personally seen and examined this patient.: Yes I have fully participated in the care of the patient.: Yes I have reviewed all pertinent clinical information, including history, physical exam and plan: Yes
[2017-08-25] MEDS: Lactobacillus Acidophilus 500 MU Cap PO SCH ×2 (09:26→16:14)
[2017-08-25] MEDS: Enoxaparin 40 mg Syringe SC SCH (09:26)
[2017-08-25] MEDS: Tmp-Smz 800 mg-160 mg DS Tab PO SCH ×2 (09:27→15:46)
[2017-08-25 15:37] VITALS: BP 134/87; PULSE 69; TEMP 98.1; O2SAT 98
== END 2017-08-25 17:31 | disposition home or self-care (01) | DRG 580 ==
LOC: H.ER 11:40 → INTOOBSV 17:48 → H.ERHOLD 17:48 → H.TEL 20:27 → OBSVTOIN 21:32 → H.TEL 08-19 14:00 → H.MEDSURG1 08-20 20:50
PROVIDERS: ADMIT Obstetrics & Gynecology; ATTEND Obstetrics & Gynecology
DX: T81.4XXA Infection following a procedure, initial encounter (principal); T81.31XA Disruption of external operation (surgical) wound, not elsewhere classified, initial encounter; K65.1 Peritoneal abscess; N39.0 Urinary tract infection, site not specified; B95.7 Other staphylococcus as the cause of diseases classified elsewhere; E11.9 Type 2 diabetes mellitus without complications; B96.20 Unspecified Escherichia coli [E. coli] as the cause of diseases classified elsewhere; D72.828 Other elevated white blood cell count; Z16.12 Extended spectrum beta lactamase (ESBL) resistance; N89.8 Other specified noninflammatory disorders of vagina; G43.909 Migraine, unspecified, not intractable, without status migrainosus; D64.9 Anemia, unspecified; F41.9 Anxiety disorder, unspecified; I10 Essential (primary) hypertension; Y83.8 Other surgical procedures as the cause of abnormal reaction of the patient, or of later complication, without mention of misadventure at the time of the procedure; Z98.890 Other specified postprocedural states; Z90.710 Acquired absence of both cervix and uterus; Z87.440 Personal history of urinary (tract) infections; Z87.891 Personal history of nicotine dependence; Z79.84 Long term (current) use of oral hypoglycemic drugs; Y92.9 Unspecified place or not applicable

== ENCOUNTER 2017-08-30 12:32 | Emergency (ER) | payer SELFPAY ==
[2017-08-30 12:32] VITALS: BMI 32.4
[2017-08-30 12:40] VITALS: TEMP 99
[2017-08-30] MEDS ORDERED: Sodium Chloride 0.9% 1,000 ML IV STA (13:10)
--- NOTE | 2017-08-30 13:20 | ED PDOC ---
HPI: Abdomen Time Seen by Provider: 08/30/17 12:45 Chief Complaint (Nursing): Abdominal Pain Chief Complaint (Provider): Left sided abdominal pain since yesterday Additional Complaint(s): 37 yo female with history of trans-abdominal hysterectomy on 08/06/17 presents with left sided abdominal pain since yesterday. She states it is worse today with dizziness, nausea and vomiting x 3. Pt reports thick white discharge from the vaginal with severe itchiness for 3 days. 08/12/17 - Pt reports to ER due to suprapubic pain and was diagnosed with UTI. Pt was placed on macrobid. At that time a fluid collection was seen on US. 07/22/17 - Pt came to the ER for suprapubic pain, mostly on the right and reported drainage from the wound site. Pt a admitted for IV antibiotics to treat abscess in the abdomen. Pt was given clindamycin and gentamicin in- patient. She states she was sent home on bactrim for 3 days. Past Medical History Reviewed: Historical Data, Nursing Documentation, Vital Signs Vital Signs: Last Vital Signs Temp 99 F 08/30/17 12:38 Pulse 120 H 08/30/17 12:38 Resp 22 08/30/17 12:38 BP 160/94 H 08/30/17 12:38 Pulse Ox 100 08/30/17 17:03 - Medical History PMH: Anemia (transfused 2 units), Anxiety, Depression, HTN, Migraine Denies: Chronic Kidney Disease - Surgical History Surgical History: (x2) - Family History Family History: States: Unknown Family Hx - Home Medications Home Medications: Ambulatory Orders Medication Instructions Recorded Sertraline [Zoloft] 100 mg PO DAILY tab 08/09/17 hydroCHLOROthiazide [Microzide] 12.5 mg PO DAILY cap 08/09/17 metFORMIN [glucOPHAGE] 500 mg PO BIDWM tab 08/09/17 Sulfamethoxazole/Trimethoprim 1 tab PO Q12 #3 tab 08/25/17 [Bactrim DS Tab] Ciprofloxacin [Cipro] 500 mg PO BID #10 tab 08/30/17 - Allergies Allergies/Adverse Reactions: Allergies Allergy/AdvReac Type Severity Reaction Status Date / Time No Known Allergies Allergy Verified 08/30/17 12:37 Review of Systems ROS Statement: Except As Marked, All Systems Reviewed And Found Negative Constitutional: Negative for: Fever, Chills Gastrointestinal: Positive for: Abdominal Pain Physical Exam - Reviewed Nursing Documentation Reviewed: Yes Vital Signs Reviewed: Yes - Physical Exam Appears: Positive for: Well, Non-toxic, No Acute Distress Head Exam: Positive for: ATRAUMATIC, NORMAL INSPECTION, NORMOCEPHALIC Skin: Positive for: Normal Color, Warm, DRY Eye Exam: Positive for: Normal appearance ENT: Positive for: Normal ENT Inspection Neck: Positive for: Normal, Painless ROM Cardiovascular/Chest: Positive for: Regular Rate, Rhythm Respiratory: Positive for: Normal Breath Sounds. Negative for: Accessory Muscle Use, Respiratory Distress Gastrointestinal/Abdominal: Positive for: Tenderness (Left lower abdomen, well healing incision without drainage ). Negative for: Normal Exam Pelvic Exam: Positive for: Discharge (white, consistent with yeast' (+) irritation and erythema of the external genital area). Negative for: External Exam Normal Back: Positive for: Normal Inspection Extremity: Positive for: Normal ROM Neurologic/Psych: Positive for: Alert, Oriented - Laboratory Results Result Diagrams: 08/30/17 13:36 08/30/17 13:36 - ECG O2 Sat by Pulse Oximetry: 100 Medical Decision Making Medical Decision Making: CT normal. Labs normal with the exception of anemia which compared to previous labs is normal for patient. Discussed with Dr. [place]. Will treat for UTI and yeast infection. Previous urine culture sensitive to cipro. Disposition - Clinical Impression Clinical Impression: UTI (urinary tract infection), Yeast infection - Patient ED Disposition Is Patient to be Admitted: No Counseled Patient/Family Regarding: Need For Followup, Rx Given - Disposition Disposition: Routine/Home Disposition Time: 17:03 Condition: GOOD Prescriptions: Ciprofloxacin [Cipro] 500 mg PO BID #10 tab Instructions: Urinary Tract Infections in Adults, Kidney Infection (DC), Vulvovaginal Yeast Infection Forms: [id number] (E[place]ian)
[2017-08-30 13:39] LABS: BASO # 0.1 K/uL (0.0-0.2); BASO % 0.7 % (0.0-2.0); EOS # 0.2 K/uL (0.0-0.7); EOS % 2.2 % (0.0-4.0); HEMOGLOBIN 10.8 g/dL (12.0-16.0); LYMPH # 2.4 K/uL (1.0-4.3); LYMPH % 25.1 % (20.0-40.0); MEAN CELL VOLUME 69.1 fl (81.0-99.0); MEAN CORPUSCULAR HEMOGLOBIN 22.1 pg (27.0-31.0); MEAN PLATELET VOLUME 8.9 fl (7.2-11.7); MONO # 0.6 K/uL (0.0-0.8); MONO % 6.5 % (0.0-10.0); NEUT # 6.3 K/uL (1.8-7.0); NEUT % 65.5 % (50.0-75.0); NRBC % 0.1 % (0.0-0.0); RBC 4.89 Mil/uL (3.80-5.20); WHITE BLOOD COUNT 9.7 K/uL (4.8-10.8)
[2017-08-30 13:50] LABS: ALB/GLOB RATIO 1.1 (1.0-2.1); ALBUMIN 4.1 g/dL (3.5-5.0); ALT/SGPT 46 U/L (9-52); AST/SGOT 20 U/L (14-36); BLOOD UREA NITROGEN 17 mg/dl (7-17); CALCIUM 9.4 mg/dL (8.4-10.2); GFR AFRICAN-AMERICAN > 60; GFR NON-AFRICAN AMERICAN > 60
[2017-08-30 13:53] LABS: SQUAMOUS EPITHIAL 7 /hpf (0-5); URINE BILIRUBIN NEGATIVE (NEGATIVE); URINE BLOOD SMALL (NEGATIVE); URINE CLARITY CLOUDY (Clear); URINE COLOR YELLOW (YELLOW); URINE GLUCOSE (UA) NEG (Normal); URINE LEUKOCYTE ESTERASE MOD Leu/uL (Negative); URINE PROTEIN NEGATIVE (NEGATIVE); URINE UROBILINOGEN 0.2-1.0 mg/dL (0.2-1.0)
[2017-08-30 14:43] LABS: VENOUS BLOOD GAS BASE EXCESS -0.2 mmol/L (0.0-2.0); VENOUS BLOOD GAS PCO2 44 mmHg (40-60); VENOUS BLOOD GAS PO2 33 mm/Hg (30-55); VENOUS BLOOD PH 7.37 (7.32-7.43)
[2017-08-30] MEDS ORDERED: Iohexol 300 100 ML IJ ONE (15:10)
--- NOTE | 2017-08-30 15:35 | CT ---
PROCEDURE: CT Abdomen and Pelvis with contrast HISTORY: right sided pain COMPARISON: Abdomen pelvis CT with contrast 08/17/2017. TECHNIQUE: Contrast dose: Omnipaque 300, 95 cc. Radiation dose: Total exam DLP = 1055.40 mGy-cm. This CT exam was performed using one or more of the following dose reduction techniques: Automated exposure control, adjustment of the mA and/or kV according to patient size, and/or use of iterative reconstruction technique. FINDINGS: LOWER THORAX: Trace bilateral basilar dependent atelectasis is noted with remainder of the lung bases unremarkable as imaged. LIVER: Diffuse hepatic steatosis appears mild but no discrete mass identified. No definite intrahepatic biliary dilatation appreciable. GALLBLADDER AND BILE DUCTS: Unremarkable. PANCREAS: Unremarkable. No gross lesion or ductal dilatation. SPLEEN: Unremarkable. ADRENALS: Unremarkable. No mass. KIDNEYS AND URETERS: Unremarkable. No hydronephrosis. No solid mass. VASCULATURE: Unremarkable. No aortic aneurysm. BOWEL: Unremarkable. No obstruction. No gross mural thickening. APPENDIX: Normal appendix. PERITONEUM: Unremarkable. No free fluid. No free air. LYMPH NODES: Unremarkable. No enlarged lymph nodes. BLADDER: Unremarkable. REPRODUCTIVE: Prior hysterectomy pattern is appreciated with resolution of prior 6.1 cm fluid collection in the operative site. Emphysematous changes of also resolved with granulation tissue remaining extending into the adnexal compartments somewhat. BONES: Grade 1 spondylolisthesis due to bilateral spondylolysis again noted at L5-S1. OTHER FINDINGS: None. IMPRESSION: Resolution of prior postoperative changes or abscess status post prior hysterectomy in the central inferior pelvis with granulation tissue remaining as described above. Hepatic steatosis.
[2017-08-30] MEDS ORDERED: Fluconazole 150 MG TAB PO ONE (16:47)
[2017-08-30] MEDS ORDERED: cefTRIAXone (Rocephin) 1 gm Inj ONE (17:19)
[2017-08-30] MEDS ORDERED: Morphine 4 MG/ML VIAL ONE (17:19)
[2017-08-30 19:37] VITALS: BP 132/72; PULSE 82; RESP 18; O2SAT 99
== END 2017-08-30 19:15 | disposition home or self-care (01) ==
LOC: H.ER 12:32
DX: N39.0 Urinary tract infection, site not specified (principal); B37.9 Candidiasis, unspecified; F32.9 Major depressive disorder, single episode, unspecified; F41.9 Anxiety disorder, unspecified; I10 Essential (primary) hypertension; K76.0 Fatty (change of) liver, not elsewhere classified; Z79.84 Long term (current) use of oral hypoglycemic drugs; Z90.710 Acquired absence of both cervix and uterus
CPT/HCPCS: 74177; 80053; 81003; 81025; 82803; 85025; 87086; 96374; 99284; J0696; J2270; J2405; J7040; Q9967

== ENCOUNTER 2017-11-10 16:09 | Emergency (ER) | payer SELFPAY ==
[2017-11-10 16:09] VITALS: BMI 32.4
[2017-11-10 16:17] VITALS: TEMP 98
[2017-11-10] MEDS ORDERED: Famotidine 20mg/50ml Premix IVPB STA (16:37)
[2017-11-10] MEDS ORDERED: Sodium Chloride 0.9% 1,000 ML IV SCH (16:45)
--- NOTE | 2017-11-10 17:05 | ED PDOC ---
HPI: Hypertension/Hypotension Time Seen by Provider: 11/10/17 16:30 Chief Complaint (Nursing): High Blood Pressure Chief Complaint (Provider): headache History Per: Patient History/Exam Limitations: language barrier (primarily lao speaking but understands hebrew) Onset/Duration Of Symptoms: Days (1) Current Symptoms Are (Timing): Still Present Associated Symptoms: Chest Pain, Dyspnea, Dizziness, Headache. denies: Blurred Vision Severity: Severe Pain Scale Rating Of: 9 Additional History Per: Patient Additional Complaint(s): pt p/w + > 1 day onset of right sided headache, severe, at most pain is 9/10; pt states she has had similar headaches before (consistent with her migraine attacks); pt states headache started last night, + light sensitive, + weakness/ fatigue, + nausea and vomited at least 4-5 episodes today, + chest pressure, + epigastric pain/cramps after vomiting, + dizziness/lightheadedness; pt also noted elevated BP (typically she is SBP ~ 130s, yesterday/today noted bp ~ 140s) ; no fever/chills, + mild sweats, no sob/palpitations, no abd pain, no numbness/ tingling, no urinary/bowel changes, no rashes, no lesions, no neck pain, no slurr speech, no facial changes; pt states she has headaches every 3 weeks, pt took her last percocet (for headache) ~ 1month ago; pt denied fall/trauma/sick contact, no travel; pt does not know of any headache triggers pt is here for further eval pt's without other complaints. [facility] pt is right hand dominate pt was prescribed percocet for headaches in the past, last dose 1 month ago Past Medical History Reviewed: Historical Data, Nursing Documentation, Vital Signs Vital Signs: Last Vital Signs Temp 98.0 F 11/10/17 16:11 Pulse 107 H 11/10/17 16:11 Resp 20 11/10/17 16:11 BP 168/106 H 11/10/17 16:11 Pulse Ox 97 11/10/17 16:11 - Medical History PMH: Anemia (transfused 2 units), Anxiety, Depression, HTN, Migraine Denies: Chronic Kidney Disease - Surgical History Surgical History: (x2) - Family History Family History: States: Unknown Family Hx - Living Arrangements Living Arrangements: With Family - Social History Current smoker - smoking cessation education provided: No Ex-Smoker (has not smoked in the last 12 months): No Alcohol: None Drugs: Denies - Home Medications Home Medications: Ambulatory Orders Medication Instructions Recorded Sertraline [Zoloft] 100 mg PO DAILY tab 08/09/17 hydroCHLOROthiazide [Microzide] 12.5 mg PO DAILY cap 08/09/17 metFORMIN [glucOPHAGE] 500 mg PO BIDWM tab 08/09/17 Sulfamethoxazole/Trimethoprim 1 tab PO Q12 #3 tab 08/25/17 [Bactrim DS Tab] Ciprofloxacin [Cipro] 500 mg PO BID #10 tab 08/30/17 Amoxicillin/Clavulanate [Augmentin 1 tab PO BID #20 tab 11/10/17 875 MG-125 MG] Ibuprofen [Motrin] 600 mg PO QID PRN #30 tab 11/10/17 Magnesium Oxide [Mag-Ox] 400 mg PO BID PRN #30 tab 11/10/17 Metoclopramide [Reglan] 10 mg PO TID PRN #30 tab 11/10/17 - Allergies Allergies/Adverse Reactions: Allergies Allergy/AdvReac Type Severity Reaction Status Date / Time No Known Allergies Allergy Verified 08/30/17 12:37 Review of Systems ROS Statement: Except As Marked, All Systems Reviewed And Found Negative Constitutional: Positive for: Sweats, Weakness, Malaise. Negative for: Fever, Chills Eyes: Positive for: Pain. Negative for: Conjunctivae Inflammation, Eyelid Inflammation ENT: Negative for: Ear Pain, Nose Pain Cardiovascular: Positive for: Chest Pain, Light Headedness. Negative for: Palpitations Respiratory: Negative for: Cough, Shortness of Breath Gastrointestinal: Positive for: Nausea, Vomiting. Negative for: Abdominal Pain , Diarrhea, Constipation Genitourinary Female: Negative for: Dysuria, Hematuria Musculoskeletal: Negative for: Neck Pain, Back Pain Skin: Negative for: Rash Neurological: Positive for: Weakness, Headache, Dizziness. Negative for: Change in Speech, Altered Mental Status Psych: Negative for: Anxiety, Depression, Psychosis Physical Exam - Reviewed Nursing Documentation Reviewed: Yes Vital Signs Reviewed: Yes (elevated BP/HR) - Physical Exam Comments: General: alert/awake, GCS = 15, oriented x 3, resting in bed, uncomfortable, cooperative, interactive; moderate distress due to pain Head: NC/AT EYE: PERRLA, EOMI, sclera anicteric, no nystagmus, + light sensitive; visual field intact B/L; fundoscopic exam: WNL, no acute papilledema noted b/l Facial: WNL; no asymmetries Oral: uvula/tongue are midline, no exudate/lesions, no drooling/stridor, no dysphonia; intact dentitions; mild dry oral mucosa NECK: intact ROM, no midline tenderness, no nuchal rigidity, no meningeal signs ; no step off Chest: CTA b/l, no w/r/r; no tachypenia, no accessory muscle use noted Cardiac: +S1, +S2, no m/r/r, no tachycardia Abdominal: +BS, soft/nd/nt, well nourished patient; no masses/rebound/guarding/ rigidity; no greco's sign, no mcburney's point tenderness Extremities: intact ROM, strength 5/5 grossly intact in all limbs, neurovasc intact b/l; + ambulatory; reflex +2/2; no pitting edema/iveth's sign noted BACK: no step off, no midline tenderness, NO crepitus, no gross deformities noted; Intact ROM SKIN: cap refill ~ 1 sec, no ulcerations, no petechiae, no rashes/lesions; no pallor NEURO: CNII-XII WNL, no facial asymmetries, no slurr speech, oriented x 3 NIH stroke scale ~ 0 Psych: normal insight, normal affect; follows command with ease - Laboratory Results Result Diagrams: 11/10/17 17:31 11/10/17 17:31 - ECG ECG: Positive for: Interpreted By Me, Viewed By Me Interpretation Of ECG: NSR at 100 bpm, normal axis, no ectopy, inverted T in leads III, V1, non- specific st changes, ABNL EKG; no gross changes compare with old ekg 08/2017 O2 Sat by Pulse Oximetry: 97 Pulse Ox Interpretation: Normal - Radiology X-Ray: Interpreted by Me, Viewed By Me, Read By Radiologist - Progress ED Course And Treament: 6:00pm - pt felt improved, headache is now 7-8/[address] head pt is awaiting diagnostics ---- HISTORY: COMPARISON: 08/17/2017. TECHNIQUE: Chest PA and lateral FINDINGS: LINES AND TUBES: None. LUNG AND PLEURA: The lungs are well inflated and clear. No pleural effusion or pneumothorax. HEART AND MEDIASTINUM: The heart is not enlarged. The hilar and mediastinal contours are within normal limits. SKELETAL STRUCTURES: The bony structures are within normal limits for the patient's age. VISUALIZED UPPER ABDOMEN: Normal. OTHER FINDINGS: None. IMPRESSION: No active pulmonary disease. ----- PROCEDURE: CT HEAD WITHOUT CONTRAST. HISTORY: headache, no trauma COMPARISON: 07/15/2015. TECHNIQUE: Axial computed tomography images were obtained through the head/brain without intravenous contrast. Radiation dose: Total exam DLP = 878.80 mGy-cm. This CT exam was performed using one or more of the following dose reduction techniques: Automated exposure control, adjustment of the mA and/or kV according to patient size, and/or use of iterative reconstruction technique. FINDINGS: HEMORRHAGE: No intracranial hemorrhage. BRAIN: Lopez-white matter differentiation is preserved. There is no mass, mass effect or abnormal extra-axial fluid collection. VENTRICLES: The ventricles are normal in size, shape and configuration. CALVARIUM: The skull base and calvarium are normal. PARANASAL SINUSES: There are fluid levels in both maxillary sinuses. The remaining included paranasal sinuses are predominantly clear. MASTOID AIR CELLS: Predominantly clear. OTHER FINDINGS: None. IMPRESSION: No acute intracranial abnormality. Fluid levels in the maxillary sinuses may represent acute sinusitis in the appropriate clinical setting and could explain patient's headache. A preliminary report was provided by [employer]. ----- 7:30pm - pt remained comfortable pt states her headache is ~ 6-7/10 pt is able to tolerate light currently pt denied nausea/vomiting pt's vital signs are much improved pt is made aware of her medical results pt is encouraged fluids pt will f/u as directed pt will be discharged home Re-evaluation Time: 17:36 Condition: Improving,but remains with symptoms Medical Decision Making Medical Decision Making: Impression: right sided headache/migraine attack; chest pressure, elevated BP i have consider all the differential diagnosis regarding pt's chief medical complaints/clinical findings, including but are not limited to: likely acute migraine exacerbation; elevated BP A/P: right sided headache/chest pressure, elevated BP - labs - ct - ua - supportive care - observe/reevaluation Disposition - Clinical Impression Clinical Impression: Migraine headache, Elevated blood pressure reading, Dehydration, Sinusitis - Patient ED Disposition Is Patient to be Admitted: No Counseled Patient/Family Regarding: Studies Performed, Diagnosis, Need For Followup, Rx Given - Disposition Referrals: Nataliia Stein MD [Medical Doctor] - PCP,NO [Non-Staff] - [facility] [Outside] [email or web address] [Outside] [facility] [Outside] Disposition: Routine/Home Disposition Time: 19:45 Condition: STABLE Additional Instructions: Make sure to see your doctor in 1-2 days DRINK PLENTY OF FLUIDS take your medications as prescribed RETURN TO ED IF worse pain, cant breath, persistent vomiting, high fever >101- 102 for hours, altered behavior, slurr speech, facial changes, focal weakness ( arm/leg or both), unable to urinate, heavy/persistent bleeding, passing out, chest pain, or other medical emergencies Prescriptions: Amoxicillin/Clavulanate [Augmentin 875 MG-125 MG] 1 tab PO BID #20 tab Ibuprofen [Motrin] 600 mg PO QID PRN #30 tab PRN Reason: Pain, Mild (1-3) Magnesium Oxide [Mag-Ox] 400 mg PO BID PRN #30 tab PRN Reason: Headache Metoclopramide [Reglan] 10 mg PO TID PRN #30 tab PRN Reason: Nausea/Vomiting Instructions: High Blood Pressure in Adults, Headache, Adult, Migraine Headache (DC), Sinusitis, Adult (DC), Hypertension (ED) Forms: [employer] (Kiswahili), [facility] ED School/Work Excuse Print Language: ARMENIAN
[2017-11-10 17:23] LABS: SQUAMOUS EPITHIAL 26 /hpf (0-5); URINE BACTERIA OCC (<OCC); URINE BILIRUBIN NEGATIVE (NEGATIVE); URINE CALCIUM OXALATE CRYSTALS MANY /hpf (<OCC); URINE CLARITY CLOUDY (Clear); URINE COLOR YELLOW (YELLOW); URINE GLUCOSE (UA) NEG (Normal); URINE PROTEIN 30 mg/dL (NEGATIVE); URINE UROBILINOGEN 0.2-1.0 mg/dL (0.2-1.0)
[2017-11-10 17:24] LABS: URINE LEUKOCYTE ESTERASE NEGATIVE Leu/uL (Negative)
[2017-11-10 17:25] LABS: URINE BLOOD SMALL (NEGATIVE)
[2017-11-10] MEDS ORDERED: Famotidine 20mg/50ml 20 MG/50 ML BAG IVPB STA (17:34)
[2017-11-10 17:37] LABS: BASO % 0.3 % (0.0-2.0); EOS # 0.4 K/uL (0.0-0.7); EOS % 3.7 % (0.0-4.0); HEMOGLOBIN 11.8 g/dL (12.0-16.0); LYMPH # 2.2 K/uL (1.0-4.3); LYMPH % 21.7 % (20.0-40.0); MEAN CELL VOLUME 73.5 fl (81.0-99.0); MEAN CORPUSCULAR HEMOGLOBIN 23.2 pg (27.0-31.0); MEAN CORPUSCULAR HGB CONC 31.6 g/dL (33.0-37.0); MEAN PLATELET VOLUME 9.2 fl (7.2-11.7); MONO # 0.8 K/uL (0.0-0.8); MONO % 7.7 % (0.0-10.0); NEUT # 6.6 K/uL (1.8-7.0); NEUT % 66.6 % (50.0-75.0); RBC 5.08 Mil/uL (3.80-5.20); RED CELL DISTRIBUTION WIDTH 16.7 % (11.5-14.5); WHITE BLOOD COUNT 9.9 K/uL (4.8-10.8)
[2017-11-10 17:45] LABS: ALBUMIN 3.9 g/dL (3.5-5.0); ALT/SGPT 57 U/L (9-52); AST/SGOT 36 U/L (14-36); BLOOD UREA NITROGEN 11 mg/dl (7-17); CALCIUM 8.8 mg/dL (8.4-10.2); GFR AFRICAN-AMERICAN > 60; GFR NON-AFRICAN AMERICAN > 60
--- NOTE | 2017-11-10 17:45 | RAD ---
HISTORY: COMPARISON: 08/17/2017. TECHNIQUE: Chest PA and lateral FINDINGS: LINES AND TUBES: None. LUNG AND PLEURA: The lungs are well inflated and clear. No pleural effusion or pneumothorax. HEART AND MEDIASTINUM: The heart is not enlarged. The hilar and mediastinal contours are within normal limits. SKELETAL STRUCTURES: The bony structures are within normal limits for the patient's age. VISUALIZED UPPER ABDOMEN: Normal. OTHER FINDINGS: None. IMPRESSION: No active pulmonary disease.
[2017-11-10 18:39] VITALS: BP 128/89; PULSE 89; RESP 18
[2017-11-10 18:50] VITALS: O2SAT 97
[2017-11-10] MEDS ORDERED: Magnesium Oxide 400 mg Tab UD PO ONE (19:00)
[2017-11-10] MEDS ORDERED: Piperacillin/Tazobact 3.375 GM in Sodium Chloride 0.9% 100 ML IV STA (20:34)
--- NOTE | 2017-11-10 21:09 | ED PDOC ---
- Laboratory Results Result Diagrams: 11/10/17 17:31 11/10/17 17:31 - ECG O2 Sat by Pulse Oximetry: 97 (RA) Pulse Ox Interpretation: Normal Medical Decision Making Medical Decision Making: Time: 19:00 Patient is signed over to provider by Dr. Murray Rehman pending head CT and reevaluation. Time: 19:[address] FINDINGS: Brain: Unremarkable. Ventricles: Unremarkable. Bones/joints: Unremarkable. No acute fracture. Soft tissues: Unremarkable. Sinuses: Fluid levels at the maxillary sinus cavities. Please note that fluid levels and frothy secretions within the paranasal sinuses are nonspecific findings but could sometimes be seen in the setting of acute sinusitis; please correlate clinically for possible acute sinusitis. Mastoid air cells: Unremarkable as visualized. IMPRESSION: Fluid levels in the bilateral maxillary sinuses, as described. This finding could possibly be related to patient's symptoms of headaches. No acute intracranial pathology or traumatic injury. --Upon reevaluation patient shows improvements in symptoms and is stable for discharge Clinical Impression: Sinusitis, hypertension, headache Scribe Attestation: Documented by Loren Philippe acting as a scribe for Michael Ferguson MD. Scribe Attestation: All medical record entries made by the Scribe were at my direction and personally dictated by me. I have reviewed the chart and agree that the record accurately reflects my personal performance of the history, physical exam, medical decision making, and the department course for this patient. I have also personally directed, reviewed, and agree with the discharge instructions and disposition. Disposition - Clinical Impression Clinical Impression: Migraine headache, Elevated blood pressure reading, Dehydration, Sinusitis - POA Present On Arrival: None - Disposition [facility]Outside[facility] [Outside] PCP,NO [Non-Staff] - Nataliia Stein MD [Medical Doctor] - Disposition: Routine/Home Disposition Time: 21:00 Condition: STABLE Additional Instructions: Make sure to see your doctor in 1-2 days DRINK PLENTY OF FLUIDS take your medications as prescribed RETURN TO ED IF worse pain, cant breath, persistent vomiting, high fever >101- 102 for hours, altered behavior, slurr speech, facial changes, focal weakness ( arm/leg or both), unable to urinate, heavy/persistent bleeding, passing out, chest pain, or other medical emergencies Prescriptions: Amoxicillin/Clavulanate [Augmentin 875 MG-125 MG] 1 tab PO BID #20 tab Ibuprofen [Motrin] 600 mg PO QID PRN #30 tab PRN Reason: Pain, Mild (1-3) Magnesium Oxide [Mag-Ox] 400 mg PO BID PRN #30 tab PRN Reason: Headache Metoclopramide [Reglan] 10 mg PO TID PRN #30 tab PRN Reason: Nausea/Vomiting Instructions: High Blood Pressure in Adults, Headache, Adult, Migraine Headache (DC), Sinusitis, Adult (DC), Hypertension (ED) Forms: [employer] (Burundian), [facility] ED School/Work Excuse Print Language: RUSSIAN
--- NOTE | 2017-11-11 08:18 | CT ---
PROCEDURE: CT HEAD WITHOUT CONTRAST. HISTORY: headache, no trauma COMPARISON: 07/15/2015. TECHNIQUE: Axial computed tomography images were obtained through the head/brain without intravenous contrast. Radiation dose: Total exam DLP = 878.80 mGy-cm. This CT exam was performed using one or more of the following dose reduction techniques: Automated exposure control, adjustment of the mA and/or kV according to patient size, and/or use of iterative reconstruction technique. FINDINGS: HEMORRHAGE: No intracranial hemorrhage. BRAIN: Lopez-white matter differentiation is preserved. There is no mass, mass effect or abnormal extra-axial fluid collection. VENTRICLES: The ventricles are normal in size, shape and configuration. CALVARIUM: The skull base and calvarium are normal. PARANASAL SINUSES: There are fluid levels in both maxillary sinuses. The remaining included paranasal sinuses are predominantly clear. MASTOID AIR CELLS: Predominantly clear. OTHER FINDINGS: None. IMPRESSION: No acute intracranial abnormality. Fluid levels in the maxillary sinuses may represent acute sinusitis in the appropriate clinical setting and could explain patient's headache. A preliminary report was provided by [employer].
--- NOTE | 2017-11-12 08:53 | CARD ---
APPROVED REPORT EKG Measurement Heart [id number] <Conclusion> Normal sinus rhythm Minimal voltage criteria for LVH, may be normal variant Nonspecific ST abnormality Abnormal ECG
== END 2017-11-10 20:30 | disposition home or self-care (01) ==
LOC: H.ER 16:09
DX: G43.909 Migraine, unspecified, not intractable, without status migrainosus (principal); I10 Essential (primary) hypertension; E86.0 Dehydration; J32.9 Chronic sinusitis, unspecified; F32.9 Major depressive disorder, single episode, unspecified; F41.9 Anxiety disorder, unspecified; Z79.84 Long term (current) use of oral hypoglycemic drugs
CPT/HCPCS: 70450; 71046; 80053; 81003; 81025; 83735; 84100; 85025; 85651; 93005; 96372; 96374; 96375; 99284; J1885; J2765; J3030; J7030

== ENCOUNTER 2018-03-22 23:35 | Emergency (ER) | payer SELFPAY ==
[2018-03-22 23:35] VITALS: BMI 32.4
[2018-03-22 23:40] VITALS: O2SAT 98
[2018-03-23] MEDS ORDERED: Sodium Chloride 0.9% 1,000 ML IV STA (00:31)
--- NOTE | 2018-03-23 01:09 | ED PDOC ---
HPI: Headache Time Seen by Provider: 03/22/18 23:56 Chief Complaint (Nursing): Headache Chief Complaint (Provider): Headache History Per: Patient History/Exam Limitations: no limitations Onset/Duration Of Symptoms: Days (x3) Current Symptoms Are (Timing): Still Present Additional Complaint(s): 37 y/o female with a PMHx of HTN and migraines presents to the ED for evaluation of a headache, onset three days ago. Patient reports headache has worsened on the right side and is located behind the right eye. Patient states headache has been coming and going over the past three days but had worsened today thus prompting today's visit. Patient reports headache is associated with photophobia, nausea and vomiting. Additionally, patient reports when she often gets headaches similar to this episode it is associated with nausea and vomiting. Patient denies thunder clap at onset, maximal at onset, fever, neck stiffness, numbness, weakness and loss of function. PMD: [place] Past Medical History Reviewed: Historical Data, Nursing Documentation, Vital Signs Vital Signs: Last Vital Signs Temp 98.5 F 03/22/18 23:37 Pulse 115 H 03/22/18 23:37 Resp 16 03/22/18 23:37 BP 198/125 H 03/22/18 23:37 Pulse Ox 98 03/22/18 23:37 - Medical History PMH: Anemia (transfused 2 units), Anxiety, Depression, HTN, Migraine Denies: Chronic Kidney Disease - Surgical History Surgical History: (x2) - Family History Family History: States: Unknown Family Hx - Home Medications Home Medications: Ambulatory Orders Medication Instructions Recorded Sertraline [Zoloft] 100 mg PO DAILY tab 08/09/17 hydroCHLOROthiazide [Microzide] 12.5 mg PO DAILY cap 08/09/17 metFORMIN [glucOPHAGE] 500 mg PO BIDWM tab 08/09/17 Sulfamethoxazole/Trimethoprim 1 tab PO Q12 #3 tab 08/25/17 [Bactrim DS Tab] Ciprofloxacin [Cipro] 500 mg PO BID #10 tab 08/30/17 Amoxicillin/Clavulanate [Augmentin 1 tab PO BID #20 tab 11/10/17 875 MG-125 MG] Ibuprofen [Motrin] 600 mg PO QID PRN #30 tab 11/10/17 Magnesium Oxide [Mag-Ox] 400 mg PO BID PRN #30 tab 11/10/17 Metoclopramide [Reglan] 10 mg PO TID PRN #30 tab 11/10/17 Aspirin/Acetaminophen/Caffeine 1 each PO Q8 PRN #30 tablet 03/23/18 [Excedrin Migraine Geltab] - Allergies Allergies/Adverse Reactions: Allergies Allergy/AdvReac Type Severity Reaction Status Date / Time No Known Allergies Allergy Verified 03/22/18 23:37 Review of Systems ROS Statement: Except As Marked, All Systems Reviewed And Found Negative Constitutional: Negative for: Fever Gastrointestinal: Positive for: Nausea, Vomiting Musculoskeletal: Negative for: Neck Pain Neurological: Positive for: Headache. Negative for: Weakness, Numbness, Incoordination Physical Exam - Reviewed Nursing Documentation Reviewed: Yes Vital Signs Reviewed: Yes - Physical Exam Appears: Positive for: No Acute Distress, Uncomfortable Head Exam: Positive for: ATRAUMATIC, NORMOCEPHALIC Skin: Positive for: Normal Color, Warm, Dry Eye Exam: Positive for: Normal appearance, EOMI, PERRL Neck: Positive for: Normal, Painless ROM Cardiovascular/Chest: Positive for: Regular Rate, Rhythm. Negative for: Murmur Respiratory: Positive for: Normal Breath Sounds. Negative for: Respiratory Distress Gastrointestinal/Abdominal: Positive for: Normal Exam, Soft. Negative for: Tenderness Back: Positive for: Normal Inspection. Negative for: L CVA Tenderness, R CVA Tenderness Extremity: Positive for: Normal ROM. Negative for: Pedal Edema, Deformity Neurologic/Psych: Positive for: Alert, probation and parole officer II-XII (intact), Oriented, Cerebellar Tests (normal), Gait (steady). Negative for: Motor/Sensory Deficits - ECG O2 Sat by Pulse Oximetry: 98 (RA) Pulse Ox Interpretation: Normal Medical Decision Making Medical Decision Making: Time: 30 A/P: 37 y/o female presenting with headache -- Most likely migraine headache vs. tension headache vs. ocular migraine -- Very unlikely subarachnoid or meningitis -- will check head CT for intracranial bleed -- Most likely HTN due to pain -- Head CT w/o Contrast -- Sodium Chloride IV 1000 mls/hr -- Reglan 10 mg IVPB -- Toradol 30 mg IVP 245 --Patient is significantly improved --Vitals improved --Very well appearing upon discharge --Advised to followup with PMD Scribe Attestation: Documented by Rebecca Aparicio, acting as a scribe for Eric Marquez MD. Provider Scribe Attestation: All medical record entries made by the Scribe were at my direction and personally dictated by me. I have reviewed the chart and agree that the record accurately reflects my personal performance of the history, physical exam, medical decision making, and the department course for this patient. I have also personally directed, reviewed, and agree with the discharge instructions and disposition. Disposition - Clinical Impression Clinical Impression: Headache - Patient ED Disposition Is Patient to be Admitted: No - Disposition Referrals: Isaias Burgess MD [Resident] - Disposition: Routine/Home Disposition Time: 02:52 Condition: IMPROVED Prescriptions: Aspirin/Acetaminophen/Caffeine [Excedrin Migraine Geltab] 1 each PO Q8 PRN #30 tablet PRN Reason: Pain, Moderate (4-7) Instructions: Migraine Headaches in Adults Forms: [employer] (French) Print Language: ICELANDIC
[2018-03-23 03:08] VITALS: BP 153/93; PULSE 71; TEMP 98.6
[2018-03-23 03:10] VITALS: RESP 17
--- NOTE | 2018-03-23 09:12 | CT ---
Date of service: 03/23/2018 PROCEDURE: CT HEAD WITHOUT CONTRAST. HISTORY: headache, HTN COMPARISON: 11/10/2017 TECHNIQUE: Axial computed tomography images were obtained through the head/brain without intravenous contrast. Radiation dose: Total exam DLP = 794 mGy-cm. This CT exam was performed using one or more of the following dose reduction techniques: Automated exposure control, adjustment of the mA and/or kV according to patient size, and/or use of iterative reconstruction technique. FINDINGS: HEMORRHAGE: No intracranial hemorrhage. BRAIN: No mass effect or edema. No atrophy or chronic microvascular ischemic changes. VENTRICLES: Unremarkable. No hydrocephalus. CALVARIUM: Unremarkable. PARANASAL SINUSES: There is interval improvement in aeration of the sinuses with decreased mucosal thickening noted when compared to the prior study. MASTOID AIR CELLS: Unremarkable as visualized. No inflammatory changes. OTHER FINDINGS: None. IMPRESSION: Unremarkable CT scan of the brain without contrast. This agrees with preliminary report provided by the on-call radiologist.
== END 2018-03-23 02:56 | disposition home or self-care (01) ==
LOC: H.ER 23:35
DX: R51 Headache (principal)
CPT/HCPCS: 70450; 96361; 96374; 96375; 99285; J1885; J2765; J7030

== ENCOUNTER 2018-05-09 18:20 | Observation (INO) | payer MEDICAID, SELFPAY ==
[2018-05-09 18:20] VITALS: BMI 32.4
[2018-05-09] MEDS ORDERED: Sodium Chloride 0.9% 2,000 ML IV STA (19:18)
[2018-05-09 19:47] LABS: VENOUS BLOOD GAS BASE EXCESS 1.2 mmol/L (0.0-2.0); VENOUS BLOOD GAS PCO2 44 mmHg (40-60); VENOUS BLOOD GAS PO2 27 mm/Hg (30-55); VENOUS BLOOD PH 7.39 (7.32-7.43)
--- NOTE | 2018-05-09 19:52 | ED PDOC ---
HPI: Back Time Seen by Provider: 05/09/18 19:09 Chief Complaint (Nursing): Back Pain History Per: Patient History/Exam Limitations: no limitations Current Symptoms Are (Timing): Still Present Severity: None Additional Complaint(s): 37 y/o with HTN presenting with R sided flank pain x 1 week, states the pain feels like a burning sensation as well as a burning sensation upon urination. She states the pain was coming and going initially but is now more persistent and associated with a fever of 101 today. +Nausea but no vomiting. Normal stools. Past Medical History Reviewed: Historical Data, Nursing Documentation, Vital Signs Vital Signs: Last Vital Signs Temp 98.2 F 05/09/18 18:30 Pulse 120 H 05/09/18 18:30 Resp 16 05/09/18 18:30 BP 167/110 H 05/09/18 18:30 Pulse Ox 99 05/09/18 18:30 - Medical History PMH: Anemia, Anxiety, Depression, HTN, Migraine Denies: Chronic Kidney Disease - Surgical History Surgical History: (x2) - Family History Family History: States: Unknown Family Hx - Home Medications Home Medications: Ambulatory Orders Medication Instructions Recorded Sertraline [Zoloft] 100 mg PO DAILY tab 08/09/17 hydroCHLOROthiazide [Microzide] 12.5 mg PO DAILY cap 08/09/17 metFORMIN [glucOPHAGE] 500 mg PO BIDWM tab 08/09/17 Ibuprofen [Motrin] 600 mg PO QID PRN #30 tab 11/10/17 Magnesium Oxide [Mag-Ox] 400 mg PO BID PRN #30 tab 11/10/17 Metoclopramide [Reglan] 10 mg PO TID PRN #30 tab 11/10/17 Acetaminophen/Butalbital/Caf 1 tab PO Q8 #12 tab 03/23/18 [Fioricet] - Allergies Allergies/Adverse Reactions: Allergies Allergy/AdvReac Type Severity Reaction Status Date / Time No Known Allergies Allergy Verified 05/09/18 18:29 Review of Systems ROS Statement: Except As Marked, All Systems Reviewed And Found Negative Constitutional: Positive for: Fever, Sweats Gastrointestinal: Positive for: Nausea, Abdominal Pain Genitourinary Female: Positive for: Dysuria Physical Exam - Reviewed Nursing Documentation Reviewed: Yes Vital Signs Reviewed: Yes - Physical Exam Appears: Positive for: Well, Non-toxic, No Acute Distress, Uncomfortable Head Exam: Positive for: ATRAUMATIC, NORMAL INSPECTION, NORMOCEPHALIC Skin: Positive for: Warm, Diaphoresis Eye Exam: Positive for: EOMI, Normal appearance, PERRL ENT: Positive for: Normal ENT Inspection Neck: Positive for: Normal, Painless ROM Cardiovascular/Chest: Positive for: Regular Rate, Rhythm Respiratory: Positive for: CNT, Normal Breath Sounds Gastrointestinal/Abdominal: Positive for: Normal Exam, Soft, Tenderness (R flank tenderness) Back: Positive for: R CVA Tenderness (Mild R sided) Extremity: Positive for: Normal ROM Neurologic/Psych: Positive for: Alert, twist tester II-XII, Oriented. Negative for: Motor/Sensory Deficits - Laboratory Results Result Diagrams: 05/09/18 19:48 05/09/18 19:48 - ECG O2 Sat by Pulse Oximetry: 99 Pulse Ox Interpretation: Normal Medical Decision Making Medical Decision MakinPM Patient presenting with fever, flank pain, urinary symptoms --Uncomfortable appearing, but stable --Hypertensive and tachycardic currently, likely pain response --DDx includes but not limited to: pyelo, kidney stone, ascending cystitis, less likely appendicitis --Will treat with fluids, toradol, check labs and imaging 2114 CT abd/pelvis FINDINGS: LUNG BASES: Scarring is seen in the right middle lobe, lingula and lung bases. LIVER: Unremarkable. GALLBLADDER AND BILE DUCTS: The gallbladder appears within normal limits. No radioopaque gallstones are seen. No biliary ductal dilatation is evident. PANCREAS: Unremarkable. SPLEEN: Unremarkable. ADRENAL GLANDS: Unremarkable. KIDNEYS, URETERS, AND BLADDER: The kidneys appear within normal limits. There is no hydronephrosis or hydroureter. No urinary calculi are seen. STOMACH AND BOWEL: Unremarkable appearance of the stomach and bowel. No evidence of bowel obstruction. No evidence suggesting enteritis or colitis. APPENDIX: No evidence of acute appendicitis on CT examination. PERITONEUM: No free fluid. No free air. LYMPH NODES: No lymphadenopathy is evident. REPRODUCTIVE: 6 x 4 cm right ovarian cyst is seen. Small amount of adjacent fluid. The uterus and ovaries are otherwise unremarkable. VASCULATURE: No evidence of abdominal aortic aneurysm. BONES: Grade 2 anterolisthesis of L5-S1 due to bilateral spondylolysis. IMPRESSION: 1. 6 x 4 cm right ovarian cyst is seen. Small amount of adjacent fluid. Consider follow-up with pelvic ultrasound 2. The uterus and ovaries are otherwise unremarkable. 3. Grade 2 anterolisthesis of L5-S1 due to bilateral spondylolysis. 4. Scarring is seen in the right middle lobe, lingula and lung bases. 0046 Transvaginal US Findings: Prior hysterectomy. The right ovary measures 7x5.4x5 cm. Right ovarian hemorrhagic cyst measuring 5.7 cm. Normal right ovarian flow. Nonvisualization of the left ovary. No free fluid in the pelvic cul-de-sac. Impression: Right ovarian hemorrhagic cyst. No evidence of ovarian torsion. 0100 Patient still feeling unwell Leukocytosis with bandemia, meeting sepsis criteria Case discussed with Dr. Vega and Dr. Schmidt, will admit to tele obs for pyelo and sepsis Disposition - Clinical Impression Clinical Impression: Pyelonephritis, Sepsis - Patient ED Disposition Is Patient to be Admitted: Yes - Disposition Disposition Time: 01:00 Condition: FAIR
[2018-05-09 19:55] LABS: BASO % 0.3 % (0.0-2.0); EOS # 0.1 K/uL (0.0-0.7); EOS % 0.5 % (0.0-4.0); HEMOGLOBIN 12.9 g/dL (12.0-16.0); LYMPH # 1.2 K/uL (1.0-4.3); LYMPH % 6.6 % (20.0-40.0); MEAN CELL VOLUME 81.5 fl (81.0-99.0); MEAN CORPUSCULAR HEMOGLOBIN 26.6 pg (27.0-31.0); MEAN CORPUSCULAR HGB CONC 32.6 g/dL (33.0-37.0); MEAN PLATELET VOLUME 9.2 fl (7.2-11.7); MONO # 0.6 K/uL (0.0-0.8); MONO % 3.4 % (0.0-10.0); NEUT # 15.5 K/uL (1.8-7.0); NEUT % 89.2 % (50.0-75.0); PLATELET COUNT 249 K/uL (130-400); RBC 4.85 Mil/uL (3.80-5.20); RED CELL DISTRIBUTION WIDTH 16.8 % (11.5-14.5); WHITE BLOOD COUNT 17.4 K/uL (4.8-10.8)
[2018-05-09 20:04] LABS: SQUAMOUS EPITHIAL < 1 /hpf (0-5); URINE BACTERIA RARE (<OCC); URINE BILIRUBIN NEGATIVE (NEGATIVE); URINE BLOOD SMALL (NEGATIVE); URINE CLARITY SLIGHTY-CLOUDY (Clear); URINE COLOR STRAW (YELLOW); URINE GLUCOSE (UA) NEG (Normal); URINE PROTEIN NEGATIVE (NEGATIVE); URINE UROBILINOGEN 0.2-1.0 mg/dL (0.2-1.0)
[2018-05-09 20:08] LABS: BLOOD UREA NITROGEN 12 mg/dl (7-17); GFR NON-AFRICAN AMERICAN > 60
[2018-05-09 20:19] LABS: URINE LEUKOCYTE ESTERASE MODERATE Leu/uL (Negative)
[2018-05-09] MEDS ORDERED: Iohexol 300 100 ML IJ ONE (20:43)
[2018-05-09] MEDS ORDERED: Sodium Chloride 0.9% 50 ML IV ONE (20:43)
[2018-05-09] MEDS ORDERED: levoFLOXacin 750 mg in D5W 750 MG/150 ML BAG IVPB ONE (20:54)
[2018-05-09] MEDS ORDERED: Morphine 4 MG/ML VIAL ONE ×2 (21:00→22:11)
[2018-05-09] MEDS ORDERED: Morphine 4 MG/ML VIAL IVP STA ×2 (21:14→22:27)
[2018-05-09 22:38] LABS: BANDS 5 % (0-2); LYMPHOCYTE 10 % (20-50); MONOCYTE 5 % (0-10); NEUTROPHIL 80 % (42-75); PLATELET ESTIMATE NORMAL (NORMAL); TOTAL CELLS COUNTED 100
[2018-05-09 22:39] LABS: ANISOCYTOSIS SLIGHT; HYPOCHROMIC SLIGHT; MICROCYTOSIS SLIGHT
[2018-05-10] MEDS ORDERED: Magnesium Oxide 400 mg Tab UD PO PRN (02:32)
--- NOTE | 2018-05-10 02:32 | CP.PCM.HP ---
<Sandrine Schmidt - Last Filed: 05/10/18 02:41> History of Present Illness - History of Present Illness History of Present Illness: CC: R flank pain HPI: 37 YO female with PMHx of HTN, prediabetes presents to [facility] ED for R flank pain. Pt states that the pain started 1 week ago, sharp/burning in nature, episodic and rated as a 8/10. Pain at times radiates to her lower pelvic area, usually resolves by itself and at times after PO Advil. Additionally, pt has been having dysuria and urinary frequency for the past week. Pt was seen by PMD last week, was given workup but has not been able to do them. Endorsing fever and nausea with pain today, Tmax at home 101.1, resolved after PO advil. Denies chest pain, dyspnea, palpatations, v/d/c. PMD: [facility] PMHx: prediabetes, HTN PSHx: 2x C-Sections, hysterectomy (complicated by infection, resolved), no hx of STIs FHx: Diabetes in mother and grandmother SHx: Denies tobacco and illicit drug use, occasional ETOH Allergies: NKDA Present on Admission - Present on Admission Any Indicators Present on Admission: No Review of Systems - Constitutional Constitutional: Fever. absent: Chills, Night Sweats - Cardiovascular Cardiovascular: absent: Chest Pain, Dyspnea - Respiratory Respiratory: absent: Cough, Dyspnea - Gastrointestinal Gastrointestinal: Nausea, Other (R flank pain, suprapubic pain ). absent: Diarrhea, Vomiting - Genitourinary Genitourinary: Dysuria, Urinary Frequency Past Patient History - Infectious Disease Hx of Infectious Diseases: None - Past Medical History & Family History Past Medical History?: Yes - Past Social History Smoking Status: Former Smoker - CARDIAC Hx Hypertension: Yes - PULMONARY Hx Respiratory Disorders: No - NEUROLOGICAL Hx Migraine: Yes - HEENT Hx HEENT Problems: No - RENAL Hx Chronic Kidney Disease: No - ENDOCRINE/METABOLIC Hx Endocrine Disorders: Yes Hx Diabetes Mellitus Type 2: Yes - HEMATOLOGICAL/ONCOLOGICAL Hx Anemia: Yes - INTEGUMENTARY Hx Dermatological Problems: No - MUSCULOSKELETAL/RHEUMATOLOGICAL Hx Musculoskeletal Disorders: No Hx Falls: No - GASTROINTESTINAL Hx Gastrointestinal Disorders: No - GENITOURINARY/GYNECOLOGICAL Hx Urinary Tract Infection: Yes Other/Comment: Fibroids, Cysts - PSYCHIATRIC Hx Anxiety: Yes Hx Depression: Yes - SURGICAL HISTORY Hx Section: Yes (x2) Hx Hysterectomy: Yes - ANESTHESIA Hx Anesthesia: Yes Hx Malignant Hyperthermia: No Meds Allergies/Adverse Reactions: Allergies Allergy/AdvReac Type Severity Reaction Status Date / Time No Known Allergies Allergy Verified 05/09/18 18:29 Physical Exam - Constitutional Appears: Other (looks uncomfortable, holding R flank ) - Head Exam Head Exam: NORMAL INSPECTION - Eye Exam Eye Exam: Normal appearance - ENT Exam ENT Exam: Mucous Membranes Moist - Respiratory Exam Respiratory Exam: Clear to Auscultation Bilateral, NORMAL BREATHING PATTERN. absent: Wheezes - Cardiovascular Exam Cardiovascular Exam: REGULAR RHYTHM, +S1, +S2 - GI/Abdominal Exam GI & Abdominal Exam: Normal Bowel Sounds, Soft. absent: Distended, Guarding, Tenderness Additional comments: Obese - Extremities Exam Extremities exam: Positive for: normal inspection. Negative for: calf tenderness, pedal edema - Back Exam Back exam: CVA tenderness (R), NORMAL INSPECTION. absent: CVA tenderness (L) - Neurological Exam Neurological exam: Alert - Skin Skin Exam: Normal Color Results - Vital Signs Recent Vital Signs: Last Vital Signs Temp 97.4 F L 05/09/18 23:03 Pulse 103 H 05/09/18 23:03 Resp 16 05/09/18 23:03 BP 134/79 05/09/18 23:03 Pulse Ox 99 05/10/18 02:29 - Labs Result Diagrams: 05/09/18 19:48 05/09/18 19:48 Labs: Laboratory Results - last 24 hr 05/09/18 05/09/18 05/09/18 19:42 19:48 19:48 WBC 17.4 H D RBC 4.85 Hgb 12.9 Hct 39.5 MCV 81.5 D MCH 26.6 L MCHC 32.6 L RDW 16.8 H Plt Count 249 MPV 9.2 Neut % (Auto) 89.2 H Lymph % (Auto) 6.6 L [place] % (Auto) 3.4 Eos % (Auto) 0.5 Baso % (Auto) 0.3 Neut # (Auto) 15.5 H Lymph # (Auto) 1.2 [place] # (Auto) 0.6 Eos # (Auto) 0.1 Baso # (Auto) 0.0 Neutrophils % (Manual) 80 H Band Neutrophils % 5 H Lymphocytes % (Manual) 10 L Monocytes % (Manual) 5 Platelet Estimate Normal Hypochromasia (manual) Slight Anisocytosis (manual) Slight Microcytosis (manual) Slight pO2 27 L VBG pH 7.39 VBG pCO2 44 VBG HCO3 24.6 VBG Total CO2 28.0 VBG O2 Sat (Calc) 52.8 VBG Base Excess 1.2 VBG Potassium 3.7 Sodium 137.0 139 Chloride 103.0 104 Glucose 107 H Lactate 1.7 FiO2 21.0 Potassium 4.0 Carbon Dioxide 26 Anion Gap 13 BUN 12 Creatinine 0.6 L Est GFR ( Amer) > 60 Est GFR (Non-Af Amer) > 60 POC Glucose (mg/dL) Random Glucose 106 H Calcium 9.0 Venous Blood Potassium 3.7 Urine Color Urine Clarity Urine pH Ur Specific [place] Urine Protein Urine Glucose (UA) Urine Ketones Urine Blood Urine Nitrate Urine Bilirubin Urine Urobilinogen Ur Leukocyte Esterase Urine RBC (Auto) Urine Microscopic WBC Ur Squamous Epith Cells Urine Bacteria 05/09/18 05/10/18 19:48 02:09 WBC RBC Hgb Hct MCV MCH MCHC RDW Plt Count MPV Neut % (Auto) Lymph % (Auto) [place] % (Auto) Eos % (Auto) Baso % (Auto) Neut # (Auto) Lymph # (Auto) [place] # (Auto) Eos # (Auto) Baso # (Auto) Neutrophils % (Manual) Band Neutrophils % Lymphocytes % (Manual) Monocytes % (Manual) Platelet Estimate Hypochromasia (manual) Anisocytosis (manual) Microcytosis (manual) pO2 VBG pH VBG pCO2 VBG HCO3 VBG Total CO2 VBG O2 Sat (Calc) VBG Base Excess VBG Potassium Sodium Chloride Glucose Lactate FiO2 Potassium Carbon Dioxide Anion Gap BUN Creatinine Est GFR ( Amer) Est GFR (Non-Af Amer) POC Glucose (mg/dL) 124 H Random Glucose Calcium Venous Blood Potassium Urine Color Straw Urine Clarity Slighty-cloudy Urine pH 6.0 Ur Specific [place] 1.009 Urine Protein Negative Urine Glucose (UA) Neg Urine Ketones Negative Urine Blood Small Urine Nitrate Negative Urine Bilirubin Negative Urine Urobilinogen 0.2-1.0 Ur Leukocyte Esterase Moderate Urine RBC (Auto) 5 H Urine Microscopic WBC 53 H Ur Squamous Epith Cells < 1 Urine Bacteria Rare Assessment & Plan - Assessment and Plan (Free Text) Assessment: Assessment/Plan: 37 YO female with PMHx of HTN, prediabetes admitted for sepsis and Pyelonephritis. Sepsis -likely 2/2 to pylo -Tachycardia, leukocytosis with bandemia (5), normal lactate -c/w with IVF -s/p 1 x dose of Levo -start Rocephin IV, Tylenol for fever -Pain management -Bcx and Ucx pending -follow up procalcitonin Acute Pyelonephritis -UA pos for blood and leukes -+ R CVA tenderness -CT abd and pelvis: Kidneys appear normal, no hydronephrosis or hydroureter -follow up official CT reading -Ucx pending -c/w abx and IVF Ovarian cyst, R -Ct abd and pelvis: R ovarian cyst (6x4cm) -TVUS 5.7cm hemorrhagic cyst, no torsion -consider OBGYN outpatient HTN -chronic, controlled -c/w home meds Prediabetes -HbA1c 5.8 (10/2017) -will hold metformin for now given sepsis -low correcting dose insulin, hypoglycemia protocol DVT prophylx -Lovenox SC <Franki Vega - Last Filed: 05/10/18 05:39> Results - Vital Signs Recent Vital Signs: Last Vital Signs Temp 97.9 F 05/10/18 02:10 Pulse 89 05/10/18 02:10 Resp 19 05/10/18 02:10 BP 120/86 05/10/18 02:10 Pulse Ox 99 05/10/18 04:50 - Labs Result Diagrams: 05/09/18 19:48 05/09/18 19:48 Labs: Laboratory Results - last 24 hr 05/09/18 05/09/18 05/09/18 19:42 19:48 19:48 WBC 17.4 H D RBC 4.85 Hgb 12.9 Hct 39.5 MCV 81.5 D MCH 26.6 L MCHC 32.6 L RDW 16.8 H Plt Count 249 MPV 9.2 Neut % (Auto) 89.2 H Lymph % (Auto) 6.6 L [place] % (Auto) 3.4 Eos % (Auto) 0.5 Baso % (Auto) 0.3 Neut # (Auto) 15.5 H Lymph # (Auto) 1.2 [place] # (Auto) 0.6 Eos # (Auto) 0.1 Baso # (Auto) 0.0 Neutrophils % (Manual) 80 H Band Neutrophils % 5 H Lymphocytes % (Manual) 10 L Monocytes % (Manual) 5 Platelet Estimate Normal Hypochromasia (manual) Slight Anisocytosis (manual) Slight Microcytosis (manual) Slight pO2 27 L VBG pH 7.39 VBG pCO2 44 VBG HCO3 24.6 VBG Total CO2 28.0 VBG O2 Sat (Calc) 52.8 VBG Base Excess 1.2 VBG Potassium 3.7 Sodium 137.0 139 Chloride 103.0 104 Glucose 107 H Lactate 1.7 FiO2 21.0 Potassium 4.0 Carbon Dioxide 26 Anion Gap 13 BUN 12 Creatinine 0.6 L Est GFR ( Amer) > 60 Est GFR (Non-Af Amer) > 60 POC Glucose (mg/dL) Random Glucose 106 H Calcium 9.0 Venous Blood Potassium 3.7 Urine Color Urine Clarity Urine pH Ur Specific [place] Urine Protein Urine Glucose (UA) Urine Ketones Urine Blood Urine Nitrate Urine Bilirubin Urine Urobilinogen Ur Leukocyte Esterase Urine RBC (Auto) Urine Microscopic WBC Ur Squamous Epith Cells Urine Bacteria 05/09/18 05/10/18 19:48 02:09 WBC RBC Hgb Hct MCV MCH MCHC RDW Plt Count MPV Neut % (Auto) Lymph % (Auto) [place] % (Auto) Eos % (Auto) Baso % (Auto) Neut # (Auto) Lymph # (Auto) [place] # (Auto) Eos # (Auto) Baso # (Auto) Neutrophils % (Manual) Band Neutrophils % Lymphocytes % (Manual) Monocytes % (Manual) Platelet Estimate Hypochromasia (manual) Anisocytosis (manual) Microcytosis (manual) pO2 VBG pH VBG pCO2 VBG HCO3 VBG Total CO2 VBG O2 Sat (Calc) VBG Base Excess VBG Potassium Sodium Chloride Glucose Lactate FiO2 Potassium Carbon Dioxide Anion Gap BUN Creatinine Est GFR ( Amer) Est GFR (Non-Af Amer) POC Glucose (mg/dL) 124 H Random Glucose Calcium Venous Blood Potassium Urine Color Straw Urine Clarity Slighty-cloudy Urine pH 6.0 Ur Specific [place] 1.009 Urine Protein Negative Urine Glucose (UA) Neg Urine Ketones Negative Urine Blood Small Urine Nitrate Negative Urine Bilirubin Negative Urine Urobilinogen 0.2-1.0 Ur Leukocyte Esterase Moderate Urine RBC (Auto) 5 H Urine Microscopic WBC 53 H Ur Squamous Epith Cells < 1 Urine Bacteria Rare Attending/Attestation - Attestation I have personally seen and examined this patient.: Yes I have fully participated in the care of the patient.: Yes I have reviewed all pertinent clinical information: Yes Notes (Text): 05/10/18 05:22 I saw, examined and discussed this patient with Dr Schmidt. I agree with the assessment and plan outlined above which represent my direct input. This is a 37 years old female who comes with one week of worsening right flank pain radiating to the right groin, with fever and a white count of 17.4 K/uL. She will be treated with Ceftriaxone for Pyelonephritis, pain management and IV Fluids. We will follow blood and urine cultures. Treat HTN, Depression and Diabetes Mellitus II. Hold Metformin for 48hours s/p CT contrast Dye use. Franki Vega MD
[2018-05-10] MEDS ORDERED: Sodium Chloride 0.9% 1,000 ML IV SCH ×2 (02:45)
[2018-05-10] MEDS ORDERED: Morphine 4 MG/ML VIAL ONE ×2 (02:51→12:33)
[2018-05-10] MEDS ORDERED: Dextrose 50% SYRINGE Inj (50 ml) IV PRN (03:00)
[2018-05-10] MEDS ORDERED: Glucagon Recombinant 1 mg Inj IM PRN (03:00)
[2018-05-10] MEDS: Morphine 4 MG/ML VIAL IVP PRN ×3 (04:08→22:14)
[2018-05-10 06:30] LABS: BASO # 0.1 K/uL (0.0-0.2); BASO % 0.4 % (0.0-2.0); EOS % 0.3 % (0.0-4.0); LYMPH # 1.2 K/uL (1.0-4.3); LYMPH % 8.5 % (20.0-40.0); MEAN CELL VOLUME 82.2 fl (81.0-99.0); MEAN CORPUSCULAR HEMOGLOBIN 26.4 pg (27.0-31.0); MEAN CORPUSCULAR HGB CONC 32.1 g/dL (33.0-37.0); MEAN PLATELET VOLUME 9.1 fl (7.2-11.7); MONO # 0.5 K/uL (0.0-0.8); MONO % 3.6 % (0.0-10.0); NEUT % 87.2 % (50.0-75.0); RBC 4.56 Mil/uL (3.80-5.20); RED CELL DISTRIBUTION WIDTH 16.6 % (11.5-14.5); WHITE BLOOD COUNT 13.8 K/uL (4.8-10.8)
[2018-05-10] MEDS: Insulin Regular 100 units/ml SC SCH ×4 (08:28→22:29)
[2018-05-10] MEDS ORDERED: cefTRIAXone (Rocephin) 1 gm Inj ONE (08:31)
[2018-05-10] MEDS ORDERED: levoFLOXacin 750 mg in D5W 750 MG/150 ML BAG IVPB SCH (09:00)
--- NOTE | 2018-05-10 11:10 | CT ---
Date of service: 05/09/2018 PROCEDURE: CT Abdomen and Pelvis with contrast HISTORY: R flank pain, fever, dysuria COMPARISON: 08/30/2017 TECHNIQUE: Contrast dose: 95 mL Omnipaque 300 Radiation dose: Total exam DLP = 841.73 mGy-cm. This CT exam was performed using one or more of the following dose reduction techniques: Automated exposure control, adjustment of the mA and/or kV according to patient size, and/or use of iterative reconstruction technique. FINDINGS: LOWER THORAX: Minimal linear scar/atelectasis in left lower lobe and lingula. LIVER: Hepatomegaly. Liver measures 25 cm craniocaudal. Smooth contour. No mass. Normal attenuation. No biliary dilatation. GALLBLADDER AND BILE DUCTS: Unremarkable. PANCREAS: Unremarkable. No gross lesion or ductal dilatation. SPLEEN: Unremarkable. ADRENALS: Unremarkable. No mass. KIDNEYS AND URETERS: Unremarkable. No hydronephrosis. No solid mass. VASCULATURE: Unremarkable. No aortic aneurysm. No aortic atherosclerotic calcification or mural plaque present. BOWEL: Unremarkable. No obstruction. No gross mural thickening. APPENDIX: Normal appendix. PERITONEUM: Trace fluid in right adnexal region and pelvis. No generalized ascites. No pneumoperitoneum. LYMPH NODES: Unremarkable. No enlarged lymph nodes. BLADDER: Unremarkable. REPRODUCTIVE: Status post hysterectomy. Right adnexal ovoid low-density mass, likely cyst, 5.5 x 4.3 cm. Recommend correlation with ultrasound examination. This is a new finding since prior CT examination. Rule out tubo-ovarian abscess. BONES: No acute fracture. Grade 1 spondylolisthesis at L5-S1 with bilateral spondylolysis. OTHER FINDINGS: None. IMPRESSION: 5.5 cm right adnexal cyst. Rule out tubo-ovarian abscess. Correlate with ultrasound examination. Hepatomegaly, nonspecific. The preliminary findings for this examination were reported by [facility] at 9:15 p.m. on 05/09/2018.. There is concurrence of this report with the preliminary findings.
--- NOTE | 2018-05-10 17:11 | US ---
Date of service: 05/10/2018 HISTORY: R ovarin cyst COMPARISON: Comparison made with prior pelvic ultrasound 07/08/2017. TECHNIQUE: Transabdominal/transvaginal sonographic evaluation of the pelvis performed. FINDINGS: UTERUS: Hysterectomy. ENDOMETRIUM: Measures mm in diameter. Unremarkable. CERVIX: No cervical abnormality identified. RIGHT OVARY: Measures 7.0 x 5.4 x 5.0 cm. There is a complex appearing cystic structure that could represent a hemorrhagic cyst measuring approximately 4.4 x 5.7 x 4.5 cm. Normal flow. LEFT OVARY: Left ovary not visualized FREE FLUID: No significant free fluid noted. OTHER FINDINGS: None. IMPRESSION: Hysterectomy. Complex right ovarian cyst (questionable hemorrhagic cyst). Consider repeat ultrasound in 6 weeks to assess for resolution.
--- NOTE | 2018-05-10 18:05 | CARD ---
APPROVED REPORT Date of service: 05/10/2018 EKG Measurement Heart [id number] <Conclusion> Normal sinus rhythm Normal Electrocardiogram
[2018-05-11 06:36] LABS: BASO % 0.6 % (0.0-2.0); EOS # 0.1 K/uL (0.0-0.7); EOS % 0.7 % (0.0-4.0); HEMOGLOBIN 12.5 g/dL (12.0-16.0); LYMPH # 1.3 K/uL (1.0-4.3); LYMPH % 15.8 % (20.0-40.0); MEAN CELL VOLUME 81.2 fl (81.0-99.0); MEAN CORPUSCULAR HEMOGLOBIN 26.4 pg (27.0-31.0); MEAN CORPUSCULAR HGB CONC 32.5 g/dL (33.0-37.0); MEAN PLATELET VOLUME 9.4 fl (7.2-11.7); MONO # 0.5 K/uL (0.0-0.8); MONO % 5.5 % (0.0-10.0); NEUT # 6.4 K/uL (1.8-7.0); NEUT % 77.4 % (50.0-75.0); RBC 4.72 Mil/uL (3.80-5.20); RED CELL DISTRIBUTION WIDTH 17.3 % (11.5-14.5); WHITE BLOOD COUNT 8.3 K/uL (4.8-10.8)
[2018-05-11] MEDS: Insulin Regular 100 units/ml SC SCH ×4 (06:56→22:00)
[2018-05-11] MEDS: Morphine 4 MG/ML VIAL IVP PRN ×3 (09:10→22:43)
--- NOTE | 2018-05-11 09:46 | CP.PCM.PN ---
Subjective - Date & Time of Evaluation Date of Evaluation: 05/11/18 Time of Evaluation: 07:40 - Subjective Subjective: Pt seen and examined at bedside. No acute event overnight. Pt still complain of Right back pain, but state have improved, otherwise she have no complain. Objective - Vital Signs/Intake and Output Vital Signs (last 24 hours): Temp Pulse Resp BP Pulse Ox 99.4 F 88 20 148/99 H 96 05/11/18 08:00 05/11/18 08:00 05/11/18 08:00 05/11/18 08:00 05/11/18 08:00 - Medications Medications: Current Medications Acetaminophen (Tylenol 325mg Tab) 650 mg PO Q6 PRN PRN Reason: Pain, Mild (1-3) Last Admin: 05/10/18 05:34 Dose: 650 mg Dextrose (Dextrose 50% Inj) 0 ml IV STAT PRN; Protocol PRN Reason: Hypoglycemia Protocol Dextrose (Glutose 15) 0 gm PO ONCE PRN; Protocol PRN Reason: Hypoglycemia Protocol Glucagon (Glucagen Diagnostic Kit) 0 mg IM STAT PRN; Protocol PRN Reason: Hypoglycemia Protocol Hydrochlorothiazide (Microzide) 12.5 mg PO DAILY SHARON Last Admin: 05/11/18 09:06 Dose: 12.5 mg Ceftriaxone Sodium 1 gm/ (Sodium Chloride) 100 mls @ 100 mls/hr IVPB DAILY SHARON; Protocol Last Admin: 05/11/18 09:11 Dose: 100 mls/hr Insulin Human Regular (Humulin R) 0 units SC ACHS SHARON; Protocol Last Admin: 05/11/18 06:56 Dose: Not Given Magnesium Oxide (Mag-Ox) 400 mg PO BID PRN PRN Reason: Headache Last Admin: 05/10/18 06:38 Dose: 400 mg Metformin HCl (Glucophage) 500 mg PO BIDWM SHARON Morphine Sulfate (Morphine) 1 mg IVP Q4 PRN PRN Reason: Pain, moderate (4-7) Morphine Sulfate (Morphine) 2 mg IVP Q6 PRN PRN Reason: Pain, severe (8-10) Last Admin: 05/11/18 09:10 Dose: 2 mg Ondansetron HCl (Zofran Inj) 4 mg IVP Q6 PRN PRN Reason: Nausea/Vomiting Last Admin: 05/10/18 16:37 Dose: 4 mg Sertraline HCl (Zoloft) 100 mg PO DAILY SHARON Last Admin: 05/11/18 09:06 Dose: 100 mg - Labs Labs: 05/11/18 06:02 05/09/18 19:48 - Constitutional Appears: Well, Non-toxic, No Acute Distress - Head Exam Head Exam: ATRAUMATIC, NORMAL INSPECTION, NORMOCEPHALIC - Eye Exam Eye Exam: EOMI, Normal appearance, PERRL Pupil Exam: NORMAL ACCOMODATION, PERRL - ENT Exam ENT Exam: Mucous Membranes Moist, Normal Exam - Neck Exam Neck Exam: Full ROM, Normal Inspection - Respiratory Exam Respiratory Exam: Clear to Ausculation Bilateral, NORMAL BREATHING PATTERN - Cardiovascular Exam Cardiovascular Exam: REGULAR RHYTHM, +S1, +S2 - GI/Abdominal Exam GI & Abdominal Exam: Soft, Tenderness, Normal Bowel Sounds Additional comments: RLQ - Extremities Exam Extremities Exam: Full ROM, Normal Capillary Refill, Normal Inspection - Back Exam Back Exam: CVA tenderness (R). absent: CVA tenderness (L) - Neurological Exam Neurological Exam: Alert, Awake, Normal Gait, Oriented x3 - Psychiatric Exam Psychiatric exam: Normal Affect, Normal Mood - Skin Skin Exam: Dry, Intact, Normal Color, Warm Assessment and Plan - Assessment and Plan (Free Text) Assessment: Assessment/Plan: 37 YO female with PMHx of HTN, prediabetes admitted for sepsis and Pyelon ephritis. CT reading 5.4cm RIGHT adnexal cyst. R/O tubo-ovarian abscess. correlate with US exam, +Hepatomegaly, nonspesific kidney Unremarkable U/S: + hysterectomy, complex RIGHT ovarian cyst ( possible hemorrhagic cyst) Repeat US in 6 wk Sepsis Afebrile, normal heart rate/vital wnl, WBC 8.3 - + for Gram neg bacteria in blood -Procalcitonin 0.73 -Continue with IVF -s/p 1 x dose of Levo -Continue Rocephin IV Day 2 -PICC line placement tomorrow -Tylenol for fever -Pain management Acute Pyelonephritis -UA pos for blood and leukes -+ R CVA tenderness -CT abd and pelvis: Kidneys appear normal, no hydronephrosis or hydroureter -Ucx pending -Continue iv abx and ivf Ovarian cyst, R -Ct abd and pelvis: R ovarian cyst (6x4cm) -TVUS 5.7cm hemorrhagic cyst, no torsion -consider OBGYN outpatient HTN -chronic, controlled -c/w home meds Prediabetes -HbA1c 5.8 (10/2017) -will hold metformin for now given sepsis -low correcting dose insulin, hypoglycemia protocol -Will add Enalapril 5mg upon d/c DVT prophylx -Lovenox SC
[2018-05-12 06:00] LABS: BLOOD UREA NITROGEN 12 mg/dl (7-17); CALCIUM 8.9 mg/dL (8.4-10.2); GFR NON-AFRICAN AMERICAN > 60
[2018-05-12 06:02] LABS: HEMOGLOBIN 13.4 g/dL (12.0-16.0); MEAN CELL VOLUME 82.3 fl (81.0-99.0); MEAN CORPUSCULAR HEMOGLOBIN 26.7 pg (27.0-31.0); MEAN CORPUSCULAR HGB CONC 32.4 g/dL (33.0-37.0); RBC 5.03 Mil/uL (3.80-5.20); WHITE BLOOD COUNT 7.3 K/uL (4.8-10.8)
[2018-05-12] MEDS: Insulin Regular 100 units/ml SC SCH ×2 (07:50→12:00)
[2018-05-12 08:53] VITALS: RESP 18
--- NOTE | 2018-05-12 11:57 | CP.PCM.PN ---
<Ike MarcoskalaElia - Last Filed: 05/12/18 14:31> Subjective - Date & Time of Evaluation Date of Evaluation: 05/12/18 Time of Evaluation: 08:00 - Subjective Subjective: Pt is seen and examined today at bedside.No acute event overnight. Pt have have no complain and wish to go home. Objective - Vital Signs/Intake and Output Vital Signs (last 24 hours): Temp Pulse Resp BP Pulse Ox 98.3 F 79 18 116/79 97 05/12/18 08:52 05/12/18 08:52 05/12/18 08:52 05/12/18 08:52 05/12/18 08:52 - Medications Medications: Current Medications Acetaminophen (Tylenol 325mg Tab) 650 mg PO Q6 PRN PRN Reason: Pain, Mild (1-3) Last Admin: 05/10/18 05:34 Dose: 650 mg Dextrose (Dextrose 50% Inj) 0 ml IV STAT PRN; Protocol PRN Reason: Hypoglycemia Protocol Dextrose (Glutose 15) 0 gm PO ONCE PRN; Protocol PRN Reason: Hypoglycemia Protocol Enalapril Maleate (Vasotec) 5 mg PO DAILY [facility] Last Admin: 05/12/18 09:14 Dose: 5 mg Glucagon (Glucagen Diagnostic Kit) 0 mg IM STAT PRN; Protocol PRN Reason: Hypoglycemia Protocol Hydrochlorothiazide (Microzide) 12.5 mg PO DAILY [facility] Last Admin: 05/12/18 09:14 Dose: 12.5 mg Ceftriaxone Sodium 1 gm/ (Sodium Chloride) 100 mls @ 100 mls/hr IVPB DAILY [facility]; Protocol Last Admin: 05/12/18 09:16 Dose: 100 mls/hr Insulin Human Regular (Humulin R) 0 units SC ACHS [facility]; Protocol Last Admin: 05/12/18 07:50 Dose: Not Given Magnesium Oxide (Mag-Ox) 400 mg PO BID PRN PRN Reason: Headache Last Admin: 05/10/18 06:38 Dose: 400 mg Metformin HCl (Glucophage) 500 mg PO BIDWM [facility] Morphine Sulfate (Morphine) 1 mg IVP Q4 PRN PRN Reason: Pain, moderate (4-7) Morphine Sulfate (Morphine) 2 mg IVP Q6 PRN PRN Reason: Pain, severe (8-10) Last Admin: 05/11/18 22:43 Dose: 2 mg Ondansetron HCl (Zofran Inj) 4 mg IVP Q6 PRN PRN Reason: Nausea/Vomiting Last Admin: 05/10/18 16:37 Dose: 4 mg Sertraline HCl (Zoloft) 100 mg PO DAILY [facility] Last Admin: 05/12/18 09:14 Dose: 100 mg - Labs Labs: 05/12/18 04:30 05/12/18 04:30 - Constitutional Appears: Well, Non-toxic, No Acute Distress - Head Exam Head Exam: ATRAUMATIC, NORMAL INSPECTION, NORMOCEPHALIC - Eye Exam Eye Exam: EOMI, Normal appearance, PERRL Pupil Exam: NORMAL ACCOMODATION, PERRL - ENT Exam ENT Exam: Mucous Membranes Moist, Normal Exam - Neck Exam Neck Exam: Full ROM, Normal Inspection - Respiratory Exam Respiratory Exam: Clear to Ausculation Bilateral, NORMAL BREATHING PATTERN - Cardiovascular Exam Cardiovascular Exam: REGULAR RHYTHM, +S1, +S2 - GI/Abdominal Exam GI & Abdominal Exam: Soft, Normal Bowel Sounds - Extremities Exam Extremities Exam: Full ROM, Normal Capillary Refill, Normal Inspection - Back Exam Back Exam: NORMAL INSPECTION - Neurological Exam Neurological Exam: Alert, Awake, Oriented x3 - Psychiatric Exam Psychiatric exam: Normal Affect, Normal Mood - Skin Skin Exam: Dry, Intact, Normal Color, Warm Assessment and Plan - Assessment and Plan (Free Text) Assessment: Assessment/Plan: 37 YO female with PMHx of HTN, prediabetes admitted for sepsis and Pyelonephritis. CT reading 5.4cm RIGHT adnexal cyst. R/O tubo-ovarian abscess. correlate with US exam, +Hepatomegaly, nonspesific kidney Unremarkable U/S: + hysterectomy, complex RIGHT ovarian cyst ( possible hemorrhagic cyst) Repeat US in 6 wk Sepsis (bacterimia) Afebrile, normal heart rate/vital wnl, WBC 8.3->7.3 - Postive for Ecoli In blood and Urine -Procalcitonin 0.73 -Continue with IVF -Continue Rocephin IV Day 3 -PICC line placement on hold until BC is negative -Tylenol for fever -Pain management F/u blood culture done today (05/12/2018) Acute Pyelonephritis -+ R CVA tenderness ( Improved) - Positive for ecoli in urine -Continue iv abx and ivf Ovarian cyst, R -Ct abd and pelvis: R ovarian cyst (6x4cm) -TVUS 5.7cm hemorrhagic cyst, no torsion -consider OBGYN outpatient HTN -chronic, controlled -c/w home meds Prediabetes -HbA1c 5.8 (10/2017) -will hold metformin for now given sepsis -low correcting dose insulin, hypoglycemia protocol -Will add Enalapril 5mg upon d/c DVT prophylx SCD <Dalia Flood - Last Filed: 05/12/18 15:09> Objective - Vital Signs/Intake and Output Vital Signs (last 24 hours): Temp Pulse Resp BP Pulse Ox 98.1 F 76 18 129/89 98 05/12/18 12:51 05/12/18 12:51 05/12/18 12:51 05/12/18 12:51 05/12/18 12:51 - Medications Medications: Current Medications Acetaminophen (Tylenol 325mg Tab) 650 mg PO Q6 PRN PRN Reason: Pain, Mild (1-3) Last Admin: 05/10/18 05:34 Dose: 650 mg Dextrose (Dextrose 50% Inj) 0 ml IV STAT PRN; Protocol PRN Reason: Hypoglycemia Protocol Dextrose (Glutose 15) 0 gm PO ONCE PRN; Protocol PRN Reason: Hypoglycemia Protocol Enalapril Maleate (Vasotec) 5 mg PO DAILY [facility] Last Admin: 05/12/18 09:14 Dose: 5 mg Glucagon (Glucagen Diagnostic Kit) 0 mg IM STAT PRN; Protocol PRN Reason: Hypoglycemia Protocol Hydrochlorothiazide (Microzide) 12.5 mg PO DAILY [facility] Last Admin: 05/12/18 09:14 Dose: 12.5 mg Ceftriaxone Sodium 1 gm/ (Sodium Chloride) 100 mls @ 100 mls/hr IVPB DAILY [facility]; Protocol Last Admin: 05/12/18 09:16 Dose: 100 mls/hr Insulin Human Regular (Humulin R) 0 units SC ACHS [facility]; Protocol Last Admin: 05/12/18 12:00 Dose: Not Given Magnesium Oxide (Mag-Ox) 400 mg PO BID PRN PRN Reason: Headache Last Admin: 05/10/18 06:38 Dose: 400 mg Metformin HCl (Glucophage) 500 mg PO BIDWM [facility] Morphine Sulfate (Morphine) 1 mg IVP Q4 PRN PRN Reason: Pain, moderate (4-7) Morphine Sulfate (Morphine) 2 mg IVP Q6 PRN PRN Reason: Pain, severe (8-10) Last Admin: 05/11/18 22:43 Dose: 2 mg Ondansetron HCl (Zofran Inj) 4 mg IVP Q6 PRN PRN Reason: Nausea/Vomiting Last Admin: 05/10/18 16:37 Dose: 4 mg Sertraline HCl (Zoloft) 100 mg PO DAILY [facility] Last Admin: 05/12/18 09:14 Dose: 100 mg - Labs Labs: 05/12/18 04:30 05/12/18 04:30 Attending/Attestation - Attestation I have personally seen and examined this patient.: Yes I have fully participated in the care of the patient.: Yes I have reviewed all pertinent clinical information, including history, physical exam and plan: Yes
[2018-05-12 12:52] VITALS: BP 129/89; PULSE 76; TEMP 98.1; O2SAT 98
--- NOTE | 2018-05-12 13:32 | CP.PCM.DIS ---
<Elia Diez - Last Filed: 05/12/18 14:28> Provider - Provider Date of Admission: 05/10/18 01:12 Attending physician: Franki Vega Time Spent in preparation of Discharge (in minutes): 20 Hospital Course - Lab Results Lab Results: Micro Results 05/09/18 19:40 Blood Blood Culture - Preliminary NO GROWTH AFTER 24 HOURS 05/09/18 19:48 Urine Urine Culture - Final Escherichia Coli 05/09/18 21:10 Blood Blood Culture - Final Escherichia Coli 05/09/18 21:10 Blood Gram Stain - Final Most Recent Lab Values WBC 7.3 K/uL (4.8-10.8) 05/12/18 04:30 RBC 5.03 Mil/uL (3.80-5.20) 05/12/18 04:30 Hgb 13.4 g/dL (12.0-16.0) 05/12/18 04:30 Hct 41.4 % (34.0-47.0) 05/12/18 04:30 MCV 82.3 fl (81.0-99.0) 05/12/18 04:30 MCH 26.7 pg (27.0-31.0) L 05/12/18 04:30 MCHC 32.4 g/dL (33.0-37.0) L 05/12/18 04:30 RDW 17.0 % (11.5-14.5) H 05/12/18 04:30 Plt Count 259 K/uL (130-400) 05/12/18 04:30 MPV 9.4 fl (7.2-11.7) 05/11/18 06:02 Neut % (Auto) 77.4 % (50.0-75.0) H 05/11/18 06:02 Lymph % (Auto) 15.8 % (20.0-40.0) L 05/11/18 06:02 [place] % (Auto) 5.5 % (0.0-10.0) 05/11/18 06:02 Eos % (Auto) 0.7 % (0.0-4.0) 05/11/18 06:02 Baso % (Auto) 0.6 % (0.0-2.0) 05/11/18 06:02 Neut # (Auto) 6.4 K/uL (1.8-7.0) 05/11/18 06:02 Lymph # (Auto) 1.3 K/uL (1.0-4.3) 05/11/18 06:02 [place] # (Auto) 0.5 K/uL (0.0-0.8) 05/11/18 06:02 Eos # (Auto) 0.1 K/uL (0.0-0.7) 05/11/18 06:02 Baso # (Auto) 0.0 K/uL (0.0-0.2) 05/11/18 06:02 Neutrophils % (Manual) 80 % (42-75) H 05/09/18 19:48 Band Neutrophils % 5 % (0-2) H 05/09/18 19:48 Lymphocytes % (Manual) 10 % (20-50) L 05/09/18 19:48 Monocytes % (Manual) 5 % (0-10) 05/09/18 19:48 Platelet Estimate Normal (NORMAL) 05/09/18 19:48 Hypochromasia (manual) Slight 05/09/18 19:48 Anisocytosis (manual) Slight 05/09/18 19:48 Microcytosis (manual) Slight 05/09/18 19:48 pO2 27 mm/Hg (30-55) L 05/09/18 19:42 VBG pH 7.39 (7.32-7.43) 05/09/18 19:42 VBG pCO2 44 mmHg (40-60) 05/09/18 19:42 VBG HCO3 24.6 mmol/L 05/09/18 19:42 VBG Total CO2 28.0 mmol/L (22-28) 05/09/18 19:42 VBG O2 Sat (Calc) 52.8 % (40-65) 05/09/18 19:42 VBG Base Excess 1.2 mmol/L (0.0-2.0) 05/09/18 19:42 VBG Potassium 3.7 mmol/L (3.6-5.2) 05/09/18 19:42 Sodium 137.0 mmol/L (132-148) 05/09/18 19:42 Chloride 103.0 mmol/L (98-107) 05/09/18 19:42 Glucose 107 mg/dL (65-105) H 05/09/18 19:42 Lactate 1.7 mmol/L (0.7-2.1) 05/09/18 19:42 FiO2 21.0 % 05/09/18 19:42 Sodium 139 mmol/l (132-148) 05/12/18 04:30 Potassium 4.0 MMOL/L (3.6-5.0) 05/12/18 04:30 Chloride 100 mmol/L (98-107) 05/12/18 04:30 Carbon Dioxide 29 mmol/L (22-30) 05/12/18 04:30 Anion Gap 14 (10-20) 05/12/18 04:30 BUN 12 mg/dl (7-17) 05/12/18 04:30 Creatinine 0.7 mg/dl (0.7-1.2) 05/12/18 04:30 Est GFR ( Amer) > 60 05/12/18 04:30 Est GFR (Non-Af Amer) > 60 05/12/18 04:30 POC Glucose (mg/dL) 79 mg/dL (65-110) 05/12/18 11:43 Random Glucose 98 mg/dL (65-105) 05/12/18 04:30 Calcium 8.9 mg/dL (8.4-10.2) 05/12/18 04:30 Procalcitonin 0.73 NG/ML (0.19-0.49) H 05/10/18 06:26 Venous Blood Potassium 3.7 mmol/L (3.6-5.2) 05/09/18 19:42 Urine Color Straw (YELLOW) 05/09/18 19:48 Urine Clarity Slighty-cloudy (Clear) 05/09/18 19:48 Urine pH 6.0 (5.0-8.0) 05/09/18 19:48 Ur Specific Renick 1.009 (1.003-1.030) 05/09/18 19:48 Urine Protein Negative mg/dL (NEGATIVE) 05/09/18 19:48 Urine Glucose (UA) Neg mg/dL (Normal) 05/09/18 19:48 Urine Ketones Negative mg/dL (NEGATIVE) 05/09/18 19:48 Urine Blood Small (NEGATIVE) 05/09/18 19:48 Urine Nitrate Negative (NEGATIVE) 05/09/18 19:48 Urine Bilirubin Negative (NEGATIVE) 05/09/18 19:48 Urine Urobilinogen 0.2-1.0 mg/dL (0.2-1.0) 05/09/18 19:48 Ur Leukocyte Esterase Moderate Helga/uL (Negative) 05/09/18 19:48 Urine RBC (Auto) 5 /hpf (0-3) H 05/09/18 19:48 Urine Microscopic WBC 53 /hpf (0-5) H 05/09/18 19:48 Ur Squamous Epith Cells < 1 /hpf (0-5) 05/09/18 19:48 Urine Bacteria Rare (<OCC) 05/09/18 19:48 - Hospital Course Hospital Course: 37 YO f with PMH of HTN, Pre-diabetes presented to to ED due to R flank pain. Pt was admitted for further treatment of pylonephritis with sepsis. in ED patient CBC/CMP Blood culture was taken. CBC/CMP was + for leucosytosis with bandemia but normal lactate. Pt was put on IVF, received one dose of Levo, and started on Rocephin after she was sent to the floor. In the floor, antibiotic was continued, pt was on IVF, and pain controlled with morphine and Tylenol. Inpatient team had discussed with same day surgery and agreed for patient to come for IV Abx administration daily for 10 day. Pt seen and examined today. No acute event overnight. Pt continue to be afebrile. she had no complain and want to go home. Plan was discussed with patient, she will go home and will present to same day surgery to receive her dose of Rocephin for 10 days. Pt agreed for plan. Pt chart reviewed, vitals and labs are improving, patient status improved and is stable to be dc home. Inpatient team clear patient to be discharge home, as long as she goes to same day surgery for her Abx. *BC was ordered today, will follow up with result Pt was advised if she have fever, chills, dizziness, headache, nausea, vomiting, or exacerbating pain to go to ER. Discharge Exam - Head Exam Head Exam: ATRAUMATIC, NORMAL INSPECTION, NORMOCEPHALIC - Eye Exam Eye Exam: EOMI, Normal appearance, PERRL Pupil Exam: NORMAL ACCOMODATION, PERRL - Respiratory Exam Respiratory Exam: Clear to PA & Lateral, NORMAL BREATHING PATTERN, UNREMARKABLE - Cardiovascular Exam Cardiovascular Exam: REGULAR RHYTHM, +S1, +S2 - GI/Abdominal Exam GI & Abdominal Exam: Normal Bowel Sounds, Unremarkable - Back Exam Back exam: NORMAL INSPECTION - Neurological Exam Neurological exam: Alert, Normal Gait, Oriented x3 - Psychiatric Exam Psychiatric exam: Normal Affect, Normal Mood - Skin Skin Exam: Dry, Intact, Normal Color, Warm Discharge Plan - Discharge Medications Prescriptions: cefTRIAXone 1 gm [Rocephin 1 gram IVPB] 1 gm IVPB DAILY 10 Days #10 bag Lisinopril [Zestril] 10 mg PO DAILY #1 tablet - Follow Up Plan Condition: FAIR Disposition: HOME/ ROUTINE Instructions: Urinary Tract Infection, Adult (DC), Sepsis, Adult (DC) Additional Instructions: To Same Day Surgery daily for IV Ceftriaxone Infusion x 10 days appt [facility] wk- appt with 05/19/18 11:00am appt with [employer] gary for further mgt of Ovarian Cyst Referrals: [facility] [place] [Outside] <Dalia Flood - Last Filed: 05/12/18 15:14> Provider - Provider Date of Admission: 05/10/18 01:12 Attending physician: Franki Vega [facility] Course - Lab Results Lab Results: Micro Results 05/09/18 19:40 Blood Blood Culture - Preliminary NO GROWTH AFTER 24 HOURS 05/09/18 19:48 Urine Urine Culture - Final Escherichia Coli 05/09/18 21:10 Blood Blood Culture - Final Escherichia Coli 05/09/18 21:10 Blood Gram Stain - Final Most Recent Lab Values WBC 7.3 K/uL (4.8-10.8) 05/12/18 04:30 RBC 5.03 Mil/uL (3.80-5.20) 05/12/18 04:30 Hgb 13.4 g/dL (12.0-16.0) 05/12/18 04:30 Hct 41.4 % (34.0-47.0) 05/12/18 04:30 MCV 82.3 fl (81.0-99.0) 05/12/18 04:30 MCH 26.7 pg (27.0-31.0) L 05/12/18 04:30 MCHC 32.4 g/dL (33.0-37.0) L 05/12/18 04:30 RDW 17.0 % (11.5-14.5) H 05/12/18 04:30 Plt Count 259 K/uL (130-400) 05/12/18 04:30 MPV 9.4 fl (7.2-11.7) 05/11/18 06:02 Neut % (Auto) 77.4 % (50.0-75.0) H 05/11/18 06:02 Lymph % (Auto) 15.8 % (20.0-40.0) L 05/11/18 06:02 [place] % (Auto) 5.5 % (0.0-10.0) 05/11/18 06:02 Eos % (Auto) 0.7 % (0.0-4.0) 05/11/18 06:02 Baso % (Auto) 0.6 % (0.0-2.0) 05/11/18 06:02 Neut # (Auto) 6.4 K/uL (1.8-7.0) 05/11/18 06:02 Lymph # (Auto) 1.3 K/uL (1.0-4.3) 05/11/18 06:02 [place] # (Auto) 0.5 K/uL (0.0-0.8) 05/11/18 06:02 Eos # (Auto) 0.1 K/uL (0.0-0.7) 05/11/18 06:02 Baso # (Auto) 0.0 K/uL (0.0-0.2) 05/11/18 06:02 Neutrophils % (Manual) 80 % (42-75) H 05/09/18 19:48 Band Neutrophils % 5 % (0-2) H 05/09/18 19:48 Lymphocytes % (Manual) 10 % (20-50) L 05/09/18 19:48 Monocytes % (Manual) 5 % (0-10) 05/09/18 19:48 Platelet Estimate Normal (NORMAL) 05/09/18 19:48 Hypochromasia (manual) Slight 05/09/18 19:48 Anisocytosis (manual) Slight 05/09/18 19:48 Microcytosis (manual) Slight 05/09/18 19:48 pO2 27 mm/Hg (30-55) L 05/09/18 19:42 VBG pH 7.39 (7.32-7.43) 05/09/18 19:42 VBG pCO2 44 mmHg (40-60) 05/09/18 19:42 VBG HCO3 24.6 mmol/L 05/09/18 19:42 VBG Total CO2 28.0 mmol/L (22-28) 05/09/18 19:42 VBG O2 Sat (Calc) 52.8 % (40-65) 05/09/18 19:42 VBG Base Excess 1.2 mmol/L (0.0-2.0) 05/09/18 19:42 VBG Potassium 3.7 mmol/L (3.6-5.2) 05/09/18 19:42 Sodium 137.0 mmol/L (132-148) 05/09/18 19:42 Chloride 103.0 mmol/L (98-107) 05/09/18 19:42 Glucose 107 mg/dL (65-105) H 05/09/18 19:42 Lactate 1.7 mmol/L (0.7-2.1) 05/09/18 19:42 FiO2 21.0 % 05/09/18 19:42 Sodium 139 mmol/l (132-148) 05/12/18 04:30 Potassium 4.0 MMOL/L (3.6-5.0) 05/12/18 04:30 Chloride 100 mmol/L (98-107) 05/12/18 04:30 Carbon Dioxide 29 mmol/L (22-30) 05/12/18 04:30 Anion Gap 14 (10-20) 05/12/18 04:30 BUN 12 mg/dl (7-17) 05/12/18 04:30 Creatinine 0.7 mg/dl (0.7-1.2) 05/12/18 04:30 Est GFR ( Amer) > 60 05/12/18 04:30 Est GFR (Non-Af Amer) > 60 05/12/18 04:30 POC Glucose (mg/dL) 79 mg/dL (65-110) 05/12/18 11:43 Random Glucose 98 mg/dL (65-105) 05/12/18 04:30 Calcium 8.9 mg/dL (8.4-10.2) 05/12/18 04:30 Procalcitonin 0.73 NG/ML (0.19-0.49) H 05/10/18 06:26 Venous Blood Potassium 3.7 mmol/L (3.6-5.2) 05/09/18 19:42 Urine Color Straw (YELLOW) 05/09/18 19:48 Urine Clarity Slighty-cloudy (Clear) 05/09/18 19:48 Urine pH 6.0 (5.0-8.0) 05/09/18 19:48 Ur Specific Renick 1.009 (1.003-1.030) 05/09/18 19:48 Urine Protein Negative mg/dL (NEGATIVE) 05/09/18 19:48 Urine Glucose (UA) Neg mg/dL (Normal) 05/09/18 19:48 Urine Ketones Negative mg/dL (NEGATIVE) 05/09/18 19:48 Urine Blood Small (NEGATIVE) 05/09/18 19:48 Urine Nitrate Negative (NEGATIVE) 05/09/18 19:48 Urine Bilirubin Negative (NEGATIVE) 05/09/18 19:48 Urine Urobilinogen 0.2-1.0 mg/dL (0.2-1.0) 05/09/18 19:48 Ur Leukocyte Esterase Moderate Helga/uL (Negative) 05/09/18 19:48 Urine RBC (Auto) 5 /hpf (0-3) H 05/09/18 19:48 Urine Microscopic WBC 53 /hpf (0-5) H 05/09/18 19:48 Ur Squamous Epith Cells < 1 /hpf (0-5) 05/09/18 19:48 Urine Bacteria Rare (<OCC) 05/09/18 19:48 Attending/Attestation - Attestation I have personally seen and examined this patient.: Yes I have fully participated in the care of the patient.: Yes I have reviewed all pertinent clinical information, including history, physical exam and plan: Yes Notes (Text): Discharge Diagnoses: 1. Sepsis due to E coli Acute Pyelonephritis with Bacteremia 2. Adnexal Cyst 3. HTN, essential - cont IV Ceftriaxone x 10 more days to complete 2 wks treatment- Pt will go to SDS - ff up with [employer] gary for further eval/mgt of adnexal cyst - ECHO - no vegetation - ff up final rpt Blood c/s results
--- NOTE | 2018-05-12 19:05 | CARD ---
APPROVED REPORT Date of service: 05/12/2018 EXAM: Two-dimensional and M-mode echocardiogram with Doppler and color Doppler. Other Information Quality : GoodRhythm : NSR INDICATION Infection:Subacute bacterial endocarditis 2D DIMENSIONS IVSd1.27 (0.7-1.1cm)LVDd4.34 (3.9-5.9cm) LVOT Diameter1.99 (1.8-2.4cm)PWd1.23 (0.7-1.1cm) IVSs1.30 (0.8-1.2cm)LVDs3.99 (2.5-4.0cm) FS (%) 8.1 %PWs1.33 (0.8-1.2cm) M-Mode DIMENSIONS Left Atrium (MM)3.55 (2.5-4.0cm)IVSd1.13 (0.7-1.1cm) Aortic Root2.73 (2.2-3.7cm)LVDd4.81 (4.0-5.6cm) Aortic Cusp Exc.1.83 (1.5-2.0cm)PWd0.90 (0.7-1.1cm) IVSs1.44 cmFS (%) 31 % LVDs3.32 (2.0-3.8cm)PWs1.39 cm Aortic Valve AoV Peak Drtefudc890.4cm/sAoV VTI23.2cmAO Peak GR.7mmHg LVOT Peak Wglbomef28.5cm/sLVOT VTI20.63cmAO Mean GR.4mmHg CRISTINA (VMAX)1.21pd3XCF (VTI)1.48cm2 Mitral Valve MV E Bdpivxdy67.0cm/sMV DECEL [id number] A Dlkxnjrm62.0cm/s MV FGL37paK/A ratio0.9MVA (PHT)3.42cm2 TDI Lateral E' Peak V9.53cm/sMedial E' Peak V6.84cm/sE/Lateral E'5.6 E/Medial E'7.7 LEFT VENTRICLE The left ventricle is normal size. There is borderline to mild concentric left ventricular hypertrophy. The left ventricular systolic function is normal. The estimated ejection fraction is 55-60% No regional wall motion abnormalities noted.. Transmitral Doppler flow pattern is Grade I-abnormal relaxation pattern. No left ventricle thrombus noted on this study. There is no ventricular septal defect visualized. There is no left ventricular aneurysm. There is no mass noted in the left ventricle. RIGHT VENTRICLE The right ventricle is normal size. There is normal right ventricular wall thickness. The right ventricular systolic function is normal. ATRIA The left atrium size is normal. The right atrium size is normal. The interatrial septum is intact with no evidence for an atrial septal defect. AORTIC VALVE The aortic valve is normal in structure. No aortic regurgitation is present. There is no aortic valvular stenosis. There is no aortic valvular vegetation. MITRAL VALVE The mitral valve is normal in structure. There is no evidence of mitral valve prolapse. There is no mitral valve stenosis. There is no mitral valve regurgitation noted. TRICUSPID VALVE The tricuspid valve is normal in structure. There is trace tricuspid valve regurgitation noted. There is no tricuspid valve prolapse or vegetation. There is no tricuspid valve stenosis. PULMONIC VALVE The pulmonary valve is normal in structure. There is no pulmonic valvular regurgitation. There is no pulmonic valvular stenosis. GREAT VESSELS The aortic root is normal in size. The ascending aorta is normal in size. The pulmonary artery is normal. The IVC is normal in size and collapses >50% with inspiration. PERICARDIAL EFFUSION There is no pericardial effusion. There is no pleural effusion. <Conclusion> There is borderline to mild concentric left ventricular hypertrophy. The estimated ejection fraction is 55-60% Transmitral Doppler flow pattern is Grade I-abnormal relaxation pattern. The left atrium size is normal. There is trace tricuspid valve regurgitation noted. No evidence of endocarditis. Correlate clinically.
== END 2018-05-12 15:15 | disposition home or self-care (01) ==
LOC: H.ER 18:20 → H.ERHOLD 05-10 01:12 → H.TEL 05-10 16:09
PROVIDERS: ADMIT Internal Medicine; ATTEND Internal Medicine
DX: A41.51 Sepsis due to Escherichia coli [E. coli] (principal); N10 Acute pyelonephritis; N83.201 Unspecified ovarian cyst, right side; R73.03 Prediabetes; M43.16 Spondylolisthesis, lumbar region; I10 Essential (primary) hypertension; D64.9 Anemia, unspecified; F41.9 Anxiety disorder, unspecified; Z87.440 Personal history of urinary (tract) infections; Z87.891 Personal history of nicotine dependence
CPT/HCPCS: 36415; 74177; 76830; 76856; 80048; 81003; 82803; 82948; 84145; 85025; 85027; 87040; 87086; 87181; 87205; 93005; 93306; 96365; 96375; 96376; 99285; G0378; J0696; J1885; J2270; J2405; J7030; Q9967

== ENCOUNTER 2018-05-19 12:54 | Emergency (ER) | payer SELFPAY ==
[2018-05-19 13:09] VITALS: BMI 31.2
--- NOTE | 2018-05-19 14:02 | ED PDOC ---
HPI: Abdomen Time Seen by Provider: 05/19/18 13:33 Chief Complaint (Nursing): GI Problem Chief Complaint (Provider): Right flank pain History Per: Patient History/Exam Limitations: no limitations Onset/Duration Of Symptoms: Hrs Location Of Pain/Discomfort: RUQ, RLQ Quality Of Discomfort: "Pain" Associated Symptoms: denies: Fever Additional Complaint(s): 37 year old female who is status post hospitalization for pyelonephritis/ovarian cyst, Ecoli and blood in urine has returned today with right flank pain. Also reports of nausea and chills. Denies fever. PMD: [facility] Ward Past Medical History Reviewed: Historical Data, Nursing Documentation, Vital Signs Vital Signs: Last Vital Signs Temp 98 F 05/19/18 13:08 Pulse 72 05/19/18 13:08 Resp BP 145/101 H 05/19/18 13:08 Pulse Ox 99 05/19/18 13:08 - Medical History PMH: Anemia, Anxiety, Depression, HTN, Migraine Denies: Chronic Kidney Disease - Surgical History Surgical History: (x2) - Family History Family History: States: Unknown Family Hx - Social History Current smoker - smoking cessation education provided: No Alcohol: None Drugs: Denies - Home Medications Home Medications: Ambulatory Orders Medication Instructions Recorded Sertraline [Zoloft] 100 mg PO DAILY tab 08/09/17 hydroCHLOROthiazide [Microzide] 12.5 mg PO DAILY cap 08/09/17 metFORMIN [glucOPHAGE] 500 mg PO BIDWM tab 08/09/17 Ibuprofen [Motrin Tab] 600 mg PO QID PRN #30 tab 11/10/17 Magnesium Oxide [Mag-Ox] 400 mg PO BID PRN #30 tab 11/10/17 Acetaminophen/Butalbital/Caf 1 tab PO Q8 #12 tab 03/23/18 [Fioricet] Acetaminophen [Tylenol 325mg tab] 650 mg PO Q6 PRN tab 05/12/18 Lisinopril [Zestril] 10 mg PO DAILY #1 tablet 05/12/18 cefTRIAXone 1 gm [Rocephin 1 gram 1 gm IVPB DAILY 10 Days #10 bag 05/12/18 IVPB] traMADol [Ultram] 50 mg PO Q8 #10 tab 05/19/18 - Allergies Allergies/Adverse Reactions: Allergies Allergy/AdvReac Type Severity Reaction Status Date / Time No Known Allergies Allergy Verified 05/09/18 18:29 Review of Systems ROS Statement: Except As Marked, All Systems Reviewed And Found Negative Constitutional: Negative for: Fever Gastrointestinal: Positive for: Abdominal Pain. Negative for: Nausea, Vomiting, Diarrhea Physical Exam - Reviewed Nursing Documentation Reviewed: Yes Vital Signs Reviewed: Yes - Physical Exam Appears: Positive for: Non-toxic, No Acute Distress Head Exam: Positive for: ATRAUMATIC, NORMAL INSPECTION, NORMOCEPHALIC Skin: Positive for: Normal Color, Warm. Negative for: Rash Eye Exam: Positive for: EOMI, Normal appearance, PERRL Cardiovascular/Chest: Positive for: Regular Rate, Rhythm. Negative for: Murmur Respiratory: Positive for: Normal Breath Sounds. Negative for: Decreased Breath Sounds, Wheezing, Respiratory Distress Gastrointestinal/Abdominal: Positive for: Soft, Tenderness (right side) Back: Positive for: Normal Inspection. Negative for: L CVA Tenderness, R CVA Tenderness Neurologic/Psych: Positive for: Alert, Oriented (x3). Negative for: Motor/Sensory Deficits - Laboratory Results Result Diagrams: 05/19/18 14:25 05/19/18 14:25 - ECG O2 Sat by Pulse Oximetry: 99 (RA) Pulse Ox Interpretation: Normal Medical Decision Making Medical Decision Making: Time: 1349 Initial Plan: VBG Shock Panel CMP ED Urine CBC w/ Differential Blood Culture Urine Culture Blood Culture Urinalysis Reevaluation Scribe Attestation: Documented by Rishi Guajardo, acting as a scribe for Cal Grier MD. Provider Scribe Attestation: All medical record entries made by the Scribe were at my direction and personally dictated by me. I have reviewed the chart and agree that the record accurately reflects my personal performance of the history, physical exam, medical decision making, and the department course for this patient. I have also personally directed, reviewed, and agree with the discharge instructions and disposition. Disposition - Clinical Impression Clinical Impression: Tyeonephritis, Ovarian cyst - Patient ED Disposition Is Patient to be Admitted: No Counseled Patient/Family Regarding: Studies Performed, Diagnosis, Need For Followup, Rx Given - Disposition [facility]errals: [facility] [Outside] [facility] [[facility] Disposition: Routine/Home Disposition Time: 18:21 Condition: FAIR Prescriptions: traMADol [Ultram] 50 mg PO Q8 #10 tab Instructions: Ovarian Cysts, Kidney Infection Forms: [employer] (Turkmen)
[2018-05-19 14:53] LABS: BASO # 0.1 K/uL (0.0-0.2); BASO % 0.7 % (0.0-2.0); EOS # 0.2 K/uL (0.0-0.7); HEMOGLOBIN 13.8 g/dL (12.0-16.0); LYMPH # 2.6 K/uL (1.0-4.3); LYMPH % 27.1 % (20.0-40.0); MEAN CORPUSCULAR HEMOGLOBIN 27.5 pg (27.0-31.0); MEAN CORPUSCULAR HGB CONC 33.1 g/dL (33.0-37.0); MONO # 0.6 K/uL (0.0-0.8); NEUT # 6.1 K/uL (1.8-7.0); NEUT % 64.2 % (50.0-75.0); NRBC % 0.3 % (0.0-0.0); RBC 5.04 Mil/uL (3.80-5.20); RED CELL DISTRIBUTION WIDTH 16.5 % (11.5-14.5); WHITE BLOOD COUNT 9.4 K/uL (4.8-10.8)
[2018-05-19 15:22] LABS: ALBUMIN 4.2 g/dL (3.5-5.0); ALT/SGPT 43 U/L (9-52); AST/SGOT 28 U/L (14-36); BLOOD UREA NITROGEN 9 mg/dl (7-17); CALCIUM 9.4 mg/dL (8.4-10.2); GFR NON-AFRICAN AMERICAN > 60
[2018-05-19 15:46] LABS: VENOUS BLOOD GAS BASE EXCESS 3.4 mmol/L (0.0-2.0); VENOUS BLOOD GAS PCO2 50 mmHg (40-60); VENOUS BLOOD GAS PO2 21 mm/Hg (30-55); VENOUS BLOOD PH 7.38 (7.32-7.43)
[2018-05-19 15:56] LABS: SQUAMOUS EPITHIAL 1 /hpf (0-5); URINE BILIRUBIN NEGATIVE (NEGATIVE); URINE BLOOD NEGATIVE (NEGATIVE); URINE CLARITY CLEAR (Clear); URINE COLOR YELLOW (YELLOW); URINE GLUCOSE (UA) NEG (Normal); URINE LEUKOCYTE ESTERASE NEG Leu/uL (Negative); URINE PROTEIN NEGATIVE (NEGATIVE); URINE UROBILINOGEN 0.2-1.0 mg/dL (0.2-1.0)
--- NOTE | 2018-05-19 16:34 | CT ---
PROCEDURE: CT Abdomen and Pelvis without Oral or IV contrast. HISTORY: r/o kidney stone COMPARISON: CT abdomen and pelvis with IV contrast performed 05/09/18 TECHNIQUE: Contiguous axial images of the abdomen and pelvis. No oral or IV contrast administered. Coronal and Sagittal reformats generated and reviewed. Radiation dose: Total exam DLP = 725.17 mGy-cm. This CT exam was performed using one or more of the following dose reduction techniques: Automated exposure control, adjustment of the mA and/or kV according to patient size, and/or use of iterative reconstruction technique. FINDINGS: There is limited evaluation of the solid organs without the administration of IV contrast. LOWER THORAX: No visible consolidation, pleural effusion, or pneumothorax. LIVER: Hepatomegaly. GALLBLADDER AND BILE DUCTS: Unremarkable unenhanced appearance. PANCREAS: Unremarkable unenhanced appearance. SPLEEN: Unremarkable unenhanced appearance. ADRENALS: Unremarkable unenhanced appearance. KIDNEYS AND URETERS: No hydronephrosis or obstructing renal calculus. BLADDER: Mildly thick-walled urinary bladder. REPRODUCTIVE: The uterus is absent consistent with hysterectomy. Suspect prominent right ovary. APPENDIX: The appendix appears within normal limits of caliber. No secondary signs of acute appendicitis. BOWEL: The stomach is nondistended. Lack of oral contrast limits evaluation for bowel pathology. The bowel loops appear within normal limits of caliber without evidence of intestinal obstruction. Moderate diffuse constipation. PERITONEUM: No significant free fluid. No definite free air. LYMPH NODES: No bulky lymphadenopathy identified. VASCULATURE: No aortic atherosclerotic calcifications present. No aortic aneurysm. BONES: 6 mm anterolisthesis of L5 on S1. OTHER FINDINGS: None. IMPRESSION: Hepatomegaly. Mildly thick-walled urinary bladder. Recommend correlation with urinalysis. Moderate diffuse constipation. Hysterectomy. Suspect prominent right ovary. Recommend further evaluation with pelvic ultrasound. Additional findings as above.
[2018-05-19] MEDS ORDERED: cefTRIAXone (Rocephin) 1 gm Inj ONE (18:25)
--- NOTE | 2018-05-19 18:25 | US ---
Indication: Right pelvic pain Comparison: Pelvic ultrasound performed 05/10/18, CT abdomen and pelvis with contrast performed 05/09/18 Technique: Transvaginal pelvic ultrasound. Findings: Patient is status post hysterectomy. The right ovary measures approximately 4.8 x 4.4 x 2.2 cm. Follicles/cysts evident measuring approximately 3.1 x 2.6 x 1.4 cm, 1.2 x 1.1 x 1.0 cm, and 1.1 x 1.0 x 0.9 cm. Left ovary measures approximately 3.1 x 1.4 x 1.5 cm. Blood flow is demonstrated bilaterally. No significant pelvic free fluid identified. Impression: Status post hysterectomy. Right ovarian follicles/cysts as above. Largest cyst measures approximately 3.1 cm. Recommend 6 week ultrasound follow-up to assess for complete resolution.
[2018-05-19 18:35] VITALS: BP 134/85; PULSE 74; RESP 16; TEMP 98.5; O2SAT 100
== END 2018-05-19 19:15 | disposition home or self-care (01) ==
LOC: H.ER 12:54
DX: N83.201 Unspecified ovarian cyst, right side (principal); N12 Tubulo-interstitial nephritis, not specified as acute or chronic; I10 Essential (primary) hypertension; Z79.84 Long term (current) use of oral hypoglycemic drugs
CPT/HCPCS: 74176; 76830; 80053; 81003; 81025; 82803; 85025; 87040; 87086; 87181; 96365; 96375; 99284; J0696; J1885; J2270